=== PATIENT | female | born 1990 | race Caucasian/White ===

== ENCOUNTER 2019-10-31 07:55 | Outpatient (CLI) | payer OTHER, SELFPAY ==
[2019-10-31 09:32] LABS: Basophils Absolute Auto 0.1 K/mm3 (0.0-0.1); Basophils Percent Auto 0.3 % (0.2-1.2); Eosinophils Percent Auto 0.1 % (0-4.4); Hemoglobin 13.1 g/dL (12.0-15.0); Immature Granulocyte Absolute 0.18 K/mm3 (0.00-0.031); Immature Granulocyte Percent A 1.1 % (0-0.5); Lymphocytes Absolute Auto 2.55 K/mm3 (0.9-3.2); Lymphocytes Percent Auto 15.7 % (18.3-44.2); Mean Corpuscular HGB Conc 34.5 g/dl (32-36); Mean Corpuscular Hemoglobin 31.6 pg (26-34); Mean Corpuscular Volume 91.8 fl (80-100); Mean Platelet Volume 10.6 fl (7.4-10.4); Monocytes Absolute Auto 0.8 K/mm3 (0.1-0.6); Monocytes Percent Auto 5.1 % (2.6-8.5); Neutrophils Absolute Auto 12.6 K/mm3 (1.3-6.7); Neutrophils Percent Auto 77.7 % (45.5-73.1); Platelet Count Result 198 k/mm3 (150-375); Red Blood Count 4.14 M/mm3 (4.2-5.4); Red Cell Distribution Width 12.5 % (11.5-14.5); White Blood Count 16.3 K/mm3 (4.5-10.0)
[2019-10-31 09:49] LABS: Glucose 1 Hour PP 50gm Dose 106 mg/dL
== END 2019-10-31 07:56 | disposition home or self-care (01) ==
PROVIDERS: PCP Nurse Practitioner Family; Visit Provider Obstetrics & Gynecology
DX: Z34.01 Encounter for supervision of normal first pregnancy, first trimester (principal); Z3A.00 Weeks of gestation of pregnancy not specified
CPT/HCPCS: 36415; 82306; 82947; 85025; 85461

== ENCOUNTER 2019-11-04 08:11 | Outpatient (CLI) | payer OTHER, SELFPAY ==
[2019-11-04] MEDS: RHO(D) IMMUNE GLOBULIN 300 MCG SYRINGE IM (19:26)
== END 2019-11-04 08:12 | disposition home or self-care (01) ==
PROVIDERS: PCP Nurse Practitioner Family; Visit Provider Obstetrics & Gynecology
DX: Z34.01 Encounter for supervision of normal first pregnancy, first trimester (principal); Z3A.00 Weeks of gestation of pregnancy not specified
CPT/HCPCS: 36415; 85461; 90384; 96372; J2790

== ENCOUNTER → 2019-11-11 14:25 | Outpatient (CLI) | payer OTHER, SELFPAY ==
--- NOTE | ~2019-11-11 | US_ITS ---
EXAMINATION: US OB follow up DATE: 11/11/2019 14:48 INDICATION: Size greater than dates during third trimester TECHNIQUE: Real-time ultrasound of the pelvis was performed. The interpreting radiologist was not pre sent for the study. COMPARISON: None. FINDINGS: There is a single living fetus in breech presentation. The placenta is anterior/fundal. Fet al cardiac activity and movement are noted. heart rate is 137 beats per minute (bpm). The amniotic fluid index is 10.5 cm which is normal. The following biometric data were obtained: Biparietal diameter (BPD): 7.0 cm; head circumference (HC): 26.6 cm; abdominal circumference (AC): 25 .0 cm; femur length (FL): 5.0 cm. These measurements are concordant. Estimated weight is 1226 g +/- 183 g, which correlates with the 27th percentile when 01/29/2020 is used as estimated date of delivery. As single measurements, these parameters are each equal to the following estimated gestational ages w ith ranges of +/- 2 standard deviations: BPD: 28 weeks 1 days ( 26 weeks 0 days - 30 weeks 2 days). HC: 29 weeks 0 days ( 27 weeks 0 days - 31 weeks 1 days). AC: 29 weeks 2 days ( 27 weeks 1 days - 31 weeks 3 days). FL: 27 weeks 0 days ( 25 weeks 0 days - 29 weeks 1 days). estimated gestational age based solely on measurements from this exam is 28 weeks 3 days +/- 2 weeks 0 days. IMPRESSION: 1. Single living fetus in breech presentation. 2. Estimated weight is 1226 g +/- 183 g, which correlates with the 27th percentile when 01/29/20 20 is used as estimated date of delivery. 3. Normal amniotic fluid index. Reviewed, dictated and finalized at location A. IMPRESSION: 1. Single living fetus in breech presentation. 2. Estimated weight is 1226 g +/- 183 g, which correlates with the 27th p ercentile when 01/29/2020 is used as estimated date of delivery. 3. Normal amniotic fluid index.
== END ==
PROVIDERS: Visit Provider Obstetrics & Gynecology
DX: Z36.9 Encounter for antenatal screening, unspecified (principal); Z3A.28 28 weeks gestation of pregnancy
CPT/HCPCS: 76816

== ENCOUNTER 2020-01-03 07:34 | Outpatient (CLI) | payer OTHER, SELFPAY ==
[2020-01-03 08:49] LABS: Basophils Absolute Auto 0.1 K/mm3 (0.0-0.1); Basophils Percent Auto 0.4 % (0.2-1.2); Eosinophils Percent Auto 0.2 % (0-4.4); Hematocrit 39.2 % (37.0-47.0); Hemoglobin 13.5 g/dL (12.0-15.0); Immature Granulocyte Absolute 0.21 K/mm3 (0.00-0.031); Immature Granulocyte Percent A 1.3 % (0-0.5); Lymphocytes Absolute Auto 2.77 K/mm3 (0.9-3.2); Lymphocytes Percent Auto 16.6 % (18.3-44.2); Mean Corpuscular HGB Conc 34.4 g/dl (32-36); Mean Corpuscular Hemoglobin 31.8 pg (26-34); Mean Corpuscular Volume 92.2 fl (80-100); Mean Platelet Volume 11.7 fl (7.4-10.4); Monocytes Percent Auto 5.8 % (2.6-8.5); Neutrophils Absolute Auto 12.6 K/mm3 (1.3-6.7); Neutrophils Percent Auto 75.7 % (45.5-73.1); Platelet Count Result 157 k/mm3 (150-375); Red Blood Count 4.25 M/mm3 (4.2-5.4); Red Cell Distribution Width 12.5 % (11.5-14.5); White Blood Count 16.7 K/mm3 (4.5-10.0)
[2020-01-03 09:40] LABS: HIV 1/2 Ab P24 Ag Result Negative (Negative)
[2020-01-05 12:21] LABS: Rapid Plasma Reagin Non-Reactive (NonReactive)
== END 2020-01-03 07:35 | disposition home or self-care (01) ==
PROVIDERS: PCP Nurse Practitioner Family; Visit Provider Obstetrics & Gynecology
DX: Z34.03 Encounter for supervision of normal first pregnancy, third trimester (principal); Z3A.00 Weeks of gestation of pregnancy not specified
CPT/HCPCS: 36415; 85025; 86592; 86703; G0432

== ENCOUNTER 2020-01-27 06:14 | Inpatient (IN) | payer OTHER, SELFPAY ==
[2020-01-27] VITALS (66 sets, daily range): BP systolic 92–153; BP diastolic 46–119; PULSE 53–87; RESP 14–18; TEMP 36.2–36.8; O2SAT 97–100; BMI 27.0
--- NOTE | 2020-01-27 06:37 | LDADM ---
This patient, Ariella Anderson, was admitted to Labor/Delivery/Recovery 119 on 01/27/20 at 06:14. Plans for labor, pain management and were discussed with patient. Patient/family oriented to hospital policies and general routines including ID bracelet, bed and alarms, visiting hours, pain management, procedures, bathroom and other care routines, personal items, smoking policy, room service/diet and guest tray routines, security routines, and visiting hours. Patient/Family are encouraged to report perceived risks to care and to ask questions if they do not understand what they are told or what they should do. See OBIX for further documentation.
[2020-01-27] MEDS: LACTATED RINGERS 1,000 ML 125 ML IV CONT (06:39)
[2020-01-27 06:41] LABS: Basophils Absolute Auto 0.1 K/mm3 (0.0-0.1); Basophils Percent Auto 0.2 % (0.2-1.2); Hemoglobin 13.3 g/dL (12.0-15.0); Immature Granulocyte Absolute 0.22 K/mm3 (0.00-0.031); Lymphocytes Absolute Auto 2.52 K/mm3 (0.9-3.2); Lymphocytes Percent Auto 11.9 % (18.3-44.2); Mean Corpuscular Hemoglobin 32.4 pg (26-34); Mean Corpuscular Volume 92.5 fl (80-100); Mean Platelet Volume 12.1 fl (7.4-10.4); Monocytes Absolute Auto 1.2 K/mm3 (0.1-0.6); Monocytes Percent Auto 5.8 % (2.6-8.5); Neutrophils Absolute Auto 17.2 K/mm3 (1.3-6.7); Neutrophils Percent Auto 81.1 % (45.5-73.1); Platelet Count Result 157 k/mm3 (150-375); Red Blood Count 4.11 M/mm3 (4.2-5.4); Red Cell Distribution Width 12.4 % (11.5-14.5); White Blood Count 21.3 K/mm3 (4.5-10.0)
--- NOTE | 2020-01-27 07:12 | WPDANESEPPF ---
Anes - Initial Pre Proc Eval Procedure: Operation Date: 01/27/20 07:30 Proposed Procedures p Section - Grant Venegas MD Date/Time: 01/27/20 07:12 Surgeon: Grant Venegas MD Pre Op Diagnosis: Contractions Patient Data Age: 29 Gender: F Height: 1.68 m Weight: 76 kg Last Vital Signs Pulse 85 01/27/20 06:46 BP 124/72 01/27/20 06:46 Allergies Allergy/AdvReac Type Severity Reaction Status Date / Time No Known Allergies Allergy Verified 01/20/20 09:10 Home Medications Medication Instructions Recorded Confirmed Type vits 75-iron 28 mg-folic 1 pkg PO DAILY 06/17/19 01/27/20 History acid 800 mcg-omega-3 oral combo pack cholecalciferol (vitamin D3) 50 50 mcg PO DAILY 09/04/19 01/27/20 History mcg (2,000 unit) capsule Laboratory Tests 01/27/20 01/27/20 06:26 06:26 WBC 21.3 K/mm3 H K/mm3 (4.5-10.0) RBC 4.11 M/mm3 L M/mm3 (4.2-5.4) Hgb 13.3 g/dL g/dL (12.0-15.0) Hct 38.0 % % (37.0-47.0) MCV 92.5 fl fl (80-100) MCH 32.4 pg pg (26-34) MCHC 35.0 g/dl g/dl (32-36) RDW 12.4 % % (11.5-14.5) Plt Count 157 k/mm3 k/mm3 (150-375) MPV 12.1 fl H fl (7.4-10.4) Immature Gran % (Auto) 1.0 % H % (0-0.5) Neut % (Auto) 81.1 % H % (45.5-73.1) Lymph % (Auto) 11.9 % L % (18.3-44.2) [place] % (Auto) 5.8 % % (2.6-8.5) Eos % (Auto) 0.0 % % (0-4.4) Baso % (Auto) 0.2 % % (0.2-1.2) Lymph # (Auto) 2.52 K/mm3 K/mm3 (0.9-3.2) [place] # (Auto) 1.2 K/mm3 H K/mm3 (0.1-0.6) Eos # (Auto) 0.0 K/mm3 K/mm3 (0-0.3) Baso # (Auto) 0.1 K/mm3 K/mm3 (0.0-0.1) Abs Immat Gran (auto) 0.22 K/mm3 H K/mm3 (0.00-0.031) Absolute Neuts (auto) 17.2 K/mm3 H K/mm3 (1.3-6.7) Absolute Nucleated RBC 0.0 K/mm3 K/mm3 (0.0-0.012) Nucleated RBC % 0.0 % % (0.0-0.2) RPR Pending Patient hx anesthesia problems: none Family hx anesthesia problems: none [facility] Social History Social History Smoking status: Never smoker Alcohol intake: current Substance use: never Gender identity (if verbalized by the patient): Female Spiritual care concerns: No Anes - Eval Final PreProcedure Day of Procedure 01/27/20 07:12 Patient weight: overweight Heart: regular rate and rhythm Lungs: clear to auscultation and normal air movement Airway: Mallampati scale class II Neurological: alert and oriented Last oral intake: >/= 8 hours ASA classification: II Emergent: no Anesthetic plan: proceed Anesthesia type and monitoring: regional spinal Informed Consent: The patient's anesthetic plan and its attendant risks and benefits were discussed with the patient/family/POA. Questions were solicited and answers provided to the satisfaction of the patient/family/POA.
--- NOTE | 2020-01-27 07:15 | PM.IMHP ---
H&P: HPI History of Present Illness Date/Time: 01/27/20 07:15 Chief complaint: Contractions Narrative: Ariella Anderson is a 29 year old female G1 at 39 weeks admitted for labor. Contractions started at 0100. Cervix dilated from 1 to 3. PNC significant for persistent breech presentation. She has a thyroid cyst that has been drained prior to . No change in size during . Normal thyroid testing. OB labs reviewed. She has been counseled regarding options and opted for cesearean section at time of labor. PNC significant for positive GBS carrier. Rh neg. Rhogam received. Denies leakage of fluid. Review of Systems Review of Systems: All systems reviewed & are unremarkable except as noted in HPI and below Constitutional: Constitutional: Reports no additional constitutional complaints and Denies headache(s) Eyes: Eyes: Denies spots in vision ENT: Reports system reviewed and no additional complaints, except as documented and Denies headache(s) Cardiovascular: Cardiovascular: Denies chest pain and Denies dyspnea Respiratory: Respiratory: Denies dyspnea Gastrointestinal: Gastrointestinal: Reports no additional gastrointestinal complaints Genitourinary: Genitourinary: Reports amenorrhea Musculoskeletal: Musculoskeletal: Reports no additional musculoskeletal complaints Integumentary/Breasts: Skin/Breast: Denies breast mass and Denies rash Neurologic: Denies headache(s) Psychiatric: Psychiatric: Reports no additional psychiatric complaints PMFSH Past Medical History Medical History Encounter for supervision of normal first , first trimester Surgical History Surgical History S/P thyroid biopsy [place] teeth removed Family History Family History Father Family history of hypercholesterolemia Grandparent Family history of malignant neoplasm of breast Mother Family history of malignant neoplasm of breast in first degree relative Social History Social History Smoking status: Never smoker Alcohol intake: current Substance use: never Gender identity (if verbalized by the patient): Female Spiritual care concerns: No Meds Home Medications and Allergies Home Medications Medication Instructions Recorded Confirmed Type vits 75-iron 28 mg-folic 1 pkg PO DAILY 06/17/19 01/27/20 History acid 800 mcg-omega-3 oral combo pack cholecalciferol (vitamin D3) 50 50 mcg PO DAILY 09/04/19 01/27/20 History mcg (2,000 unit) capsule Allergies Allergy/AdvReac Type Severity Reaction Status Date / Time No Known Allergies Allergy Verified 01/20/20 09:10 Vital Signs Vital Signs - 24 hr 01/27/20 06:01 01/27/20 06:16 01/27/20 06:31 Pulse Rate 70 79 87 Blood Pressure 124/67 126/78 135/86 01/27/20 06:46 Pulse Rate 85 Blood Pressure 124/72 Exam Const: General: no acute distress Eyes: General: appearance normal, both eyes and all related structures Resp: Effort & Inspection: normal respiratory effort Cardio: Rate: regular rate GI: Other: Gravid no fundal tenderness no right upper quadrant pain : External Female Exam: normal external appearance Manual OB Exam: dilated 3 cm, effaced 75% and station -1 Other: bedside ultrasound confirmed breech Skin: General skin exam: no rashes or lesions noted Neuro: Cognition (Neuro): normal cognition Extrem: General: normal to inspection Psych: Mental Status: mental status grossly normal H&P: Results Labs Labs: Short CBC 01/27/20 Range/Units 06:26 WBC 21.3 H (4.5-10.0) K/mm3 Hgb 13.3 (12.0-15.0) g/dL Hct 38.0 (37.0-47.0) % Plt Count 157 (150-375) k/mm3 Assessment and Plan Assessment and plan (1) Breech presentation: Code(s): O32.1XX0 -
[2020-01-27] MEDS: ceFAZolin 2 GM/D5W 50 ML 2 GM/50 ML BAG IVPB (07:29)
--- NOTE | 2020-01-27 08:49 | PM.PROC ---
Procedure Note - Detailed Date of procedure: 01/28/20 Pre-op diagnosis: Contractions 1. Persistent breech presentation 2. Active labor. Post-op diagnosis: same Procedure performed: 1. Primary cesearean section Description of procedure: After informed consent was obtained patient was taken to the operating room and adequate spinal anesthesia was administered. She was placed in supine position and prepped and draped in sterile fashion. heart tones were auscultated prior to a drape. Attention was turned to the abdomen and a Pfannenstiel skin incision was made along her prior Pfannenstiel scar. The subcutaneous tissue was dissected with scalpel and cautery. The fascia was incised in the midline stented bilaterally with Padilla scissors. The fascia was from rectus muscle superiorly and inferiorly bluntly and sharply. Scar tissue of the abdominal muscles to the fascia was lysed with Padilla scissors. The midline was identified the midline was entered and the peritoneum was entered with metzenbaum scissors. The uterus had some filmy adhesions to the anterior abdominal wall, it was noted to be free of any scar tissue from the intestines. The pelvic organs were visualized. The lower uterine segment and vesico-uterine peritoneum was visualized. A bladder flap was made. A low-transverse uterine incision was made, amniotic cavity was entered, clear fluid noted. The incision was extended bluntly. The buttocks was visualized. The butt was delivered. The legs were flexed in and delivered. The arms and head were delivered. There was a loose nuchal cord manually reduced. The was vigorously crying upon delivery. The cord was doubly clamped and cut and the infant was handed to nursery staff in attendance. Cord segment was obtained for cord gases. Cord blood was obtained. The placenta was removed manually. The uterine cavity was sponge curetted. The uterus was noted to have good tone. The uterus was exteriorized the incision of the uterus was closed in a running locking fashion with 0 Vicryl and a 2nd umbricating stitch of 0 Vicryl. Hemostasis was noted. The posterior cul-de-sac was irrigated. Uterus was placed back into the abdomen. The paracolic gutters were irrigated the uterine incision was inspected again and noted to be hemostatic. Interceed adhesion barrier was placed at the lower uterine segment and anterior uterus. The omentum was placed over the site. The peritoneum and muscle bellies were approximated in the midline with several sutures of [id number] of 3 O Vicryl. The fascia was closed in a running fashion with 0 Vicryl with 2 sutures. Hemostasis was noted. The skin incision was closed with 4 O Vicryl on a Gopi needle. Dermabond was placed. Hemostasis was noted. Sponge count was correct x3. The patient tolerated procedure well and was taken to recovery in stable condition. Anesthesia: spinal Surgeon: Grant Venegas MD Estimated blood loss (mL): 645 Drains: No Packing: No Pathology: none sent Complications: No immediate complications Condition: stable Disposition: floor (Recovery) Findings: Male in robina breech position. 6ls 1 oz. Normal uterus fallopian tubes and ovaries.
[2020-01-27] MEDS: OXYTOCIN 30 UNITS/NS 500 ML 30 UNITS/500 ML BAG 125 UNITS IV CONT (09:28)
[2020-01-27] MEDS: KETOROLAC 30 MG/ML VIAL (*BKC) IV PUSH ×2 (10:47→17:56)
--- NOTE | 2020-01-27 15:20 | PC.NURSE ---
Consulted with patient, mother reports she used a nipple shield for last feeding. Reviewed feeding cues, frequencies, duration of feedings, feeding elimination flow sheet, and signs of adequate intake. Demonstrated stimulation techniques to wake infant for feeding. Assisted with to breast. Demonstrated how to roll out nipple to assist with latching. Reviewed positioning/alignment in cross cradle, holding breast in U hold and guided asymmetrical latch on. Discussed rational for each. Infant was able to latch correctly with first attempt. Infant nursed eagerly, with steady draws and frequent swallowing noted. Reviewed signs of a correct latch, effective nursing and suck swallow ratio. was able to maintain latch without discomfort to mother. Nipple care reviewed. Suggested to stimulate while feeding to keep awake and nursing effectively for increased intake and to assist with maintaining deep latch. Demonstrated how to adjust latch more deeply while feeding. Instructed mother to call out for RN assistance if she is unable to latch infant for feeding or she has discomfort with nursing. Instructed feeding should be initiated three hours from start of last feeding or if feeding cues are noted before. Mother voiced understanding of information shared.
[2020-01-27] MEDS: DOCUSATE SODIUM 100 MG CAPSULE PO (17:55)
[2020-01-28 04:10] VITALS: BP 105/67; PULSE 64; RESP 16; TEMP 36.8; O2SAT 100
[2020-01-28 05:37] LABS: Basophils Absolute Auto 0.1 K/mm3 (0.0-0.1); Basophils Percent Auto 0.3 % (0.2-1.2); Eosinophils Percent Auto 0.2 % (0-4.4); Hematocrit 32.1 % (37.0-47.0); Immature Granulocyte Absolute 0.16 K/mm3 (0.00-0.031); Immature Granulocyte Percent A 0.8 % (0-0.5); Lymphocytes Absolute Auto 3.03 K/mm3 (0.9-3.2); Lymphocytes Percent Auto 15.2 % (18.3-44.2); Mean Corpuscular HGB Conc 34.3 g/dl (32-36); Mean Corpuscular Hemoglobin 32.6 pg (26-34); Mean Corpuscular Volume 95.3 fl (80-100); Mean Platelet Volume 12.4 fl (7.4-10.4); Monocytes Absolute Auto 1.2 K/mm3 (0.1-0.6); Neutrophils Absolute Auto 15.4 K/mm3 (1.3-6.7); Neutrophils Percent Auto 77.5 % (45.5-73.1); Platelet Count Result 121 k/mm3 (150-375); Red Blood Count 3.37 M/mm3 (4.2-5.4); Red Cell Distribution Width 12.7 % (11.5-14.5); White Blood Count 19.9 K/mm3 (4.5-10.0)
--- NOTE | 2020-01-28 08:10 | WPDANLDNPN2 ---
Anes-Prog Note L&D-Neuraxial Date/Time: 01/28/20 08:10 Neuraxial medications: intrathecal PF morphine Opiod-related complaints: none Patient feedback: Patient satisfied with post-operative pain management.
--- NOTE | 2020-01-28 08:10 | WPDANLDPN2 ---
Anes-Prog Note L&D Date/Time: 01/28/20 08:10 Neuraxial method: spinal Neuro status: Neuro function grossly intact. Cardiovascular status: normal Respiratory status: normal Airway patency: baseline Mental status: baseline Post-Op hydration status: normal Vital Signs: Last Vital Signs Temp 36.8 C 01/28/20 04:10 Pulse 64 01/28/20 04:10 Resp 16 01/28/20 04:10 BP 105/67 01/28/20 04:10 Pulse Ox 100 01/28/20 04:10 I/O: Intake & Output 01/27/20 01/28/20 01/28/20 23:59 07:59 15:59 Intake Total 1100 200 Output Total 1150 1800 Balance -50 -1600 Post-procedural complaints: none Patient feedback: Patient satisfied with anesthetic care.
[2020-01-28 08:30] VITALS: BP 98/64; PULSE 62; RESP 16; TEMP 37.6; O2SAT 99
--- NOTE | 2020-01-28 09:04 | PM.OBPNVD ---
OB - PN: Subj Subjective Date/time seen: 01/28/20 09:04 Interval history: Pain well controlled Tolerating PO. Denies N/V/CP/SOB. Lochia is like menses. Patient comments: no complaints, pain well controlled, tolerating diet and flatus present [place] baby status: doing well and nursing well feeding status: exclusively breast feeding OB - PN: Obj Data Labs CBC & Chem 7: 01/28/20 05:30 Labs: Laboratory Results - last 24 hr 01/27/20 01/28/20 06:26 05:30 WBC 19.9 H RBC 3.37 L Hgb 11.0 L Hct 32.1 L MCV 95.3 MCH 32.6 MCHC 34.3 RDW 12.7 Plt Count 121 L MPV 12.4 H Immature Gran % (Auto) 0.8 H Neut % (Auto) 77.5 H Lymph % (Auto) 15.2 L [place] % (Auto) 6.0 Eos % (Auto) 0.2 Baso % (Auto) 0.3 Lymph # (Auto) 3.03 [place] # (Auto) 1.2 H Eos # (Auto) 0.0 Baso # (Auto) 0.1 Abs Immat Gran (auto) 0.16 H Absolute Neuts (auto) 15.4 H Absolute Nucleated RBC 0.0 Nucleated RBC % 0.0 Antibody Identification Inconclusive Antigen Identification Cancelled VISHNU, IgG Interpret Not Performed VISHNU, Poly Interpret Negative VISHNU, Complement Interp Not Performed OB - PN A/P Plan day: 1 Plan: routine care Comments: Encourage ambulation Advance diet as tolerated BF instructed. Time Spent With Patient Time: Total time spent is greater than 50% in coordination of care (as documented) at patient's floor/unit and/or counseling patient: Time with patient: less than 15 minutes Review of Systems Constitutional: Constitutional: Reports no additional constitutional complaints and Denies headache(s) Cardiovascular: Cardiovascular: Reports no additional cardiovascular complaints Respiratory: Respiratory: Reports no additional respiratory complaints Gastrointestinal: Gastrointestinal: Reports no additional gastrointestinal complaints Exam Const: General: comfortable, no acute distress, alert and awake Resp: Effort & Inspection: normal respiratory effort Auscultation: clear to auscultation bilaterally Cardio: Rate: regular rate GI: Auscultation: normal bowel sounds Other: Incision: C/D/I Fundus firm below umbilicus Psych: Appearance: grossly normal Mental Status: mental status grossly normal Affect: normal affect Attitude: cooperative Judgement: Good judgement present (Psych)
[2020-01-28 10:03] LABS: Rapid Plasma Reagin Non-Reactive (NonReactive)
--- NOTE | 2020-01-28 10:50 | PC.NURSE ---
Mother called out for assist with feeding, reporting was eager to feed during the night. Mother has tenderness to nipples with feeding with feedings. Reviewed positioning/alignment in cross cradle, holding breast in U hold and guided asymmetrical latch on. was able to latch correctly. Infant nursed eagerly, with steady draws and frequent swallowing noted. Within a few minutes mother reports tenderness, has pulled bottom lip in. Demonstrated how to pull lip out while feeding. Once lip is out mother reports she can feel is latched deeply with no discomfort. Reviewed signs of a correct latch, effective nursing and suck swallow ratio. was able to maintain latch without discomfort to mother. Nipple care reviewed. Demonstrated how to adjust latch more deeply while feeding. Instructed mother to call out for RN assistance if she is unable to latch infant for feeding or she has discomfort with nursing. Instructed feeding should be initiated three hours from start of last feeding or if feeding cues are noted before. Mother voiced understanding of information shared.
[2020-01-28] MEDS: IBUPROFEN SUSPENSION 200 MG/10 ML UDC 600 MG PO ×2 (10:58→18:43)
[2020-01-28] MEDS: DOCUSATE SODIUM 100 MG CAPSULE PO ×2 (11:04→18:43)
--- NOTE | 2020-01-28 13:35 | PC.NURSE ---
Mother called out for assist with feeding, reporting tenderness to nipples with feeding. lip is rolled in. is latched deeply in cross cradle, holding breast in U hold. Infant nursed eagerly, with steady draws and frequent swallowing noted. Demonstrated how to pull lip out while feeding. Once lip is out mother reports she can feel infant is latched deeply with no discomfort. Reviewed signs of a correct latch, effective nursing and suck swallow ratio. Infant was able to maintain latch without discomfort to mother. Nipple care reviewed. Demonstrated how to adjust latch more deeply while feeding. Instructed mother to call out for RN assistance if she is unable to latch for feeding or she has discomfort with nursing. Instructed feeding should be initiated three hours from start of last feeding or if feeding cues are noted before. Mother voiced understanding of information shared.
[2020-01-28 19:03] VITALS: BP 106/57; PULSE 76; RESP 16; TEMP 36.4; O2SAT 99
[2020-01-29 08:00] VITALS: BP 144/70; PULSE 83; RESP 18; TEMP 37.3
[2020-01-29] MEDS: SIMETHICONE 80 MG TAB.CHEW PO ×2 (08:53→16:46)
[2020-01-29] MEDS: IBUPROFEN SUSPENSION 200 MG/10 ML UDC 600 MG PO ×3 (08:54→21:22)
[2020-01-29] MEDS: DOCUSATE SODIUM 100 MG CAPSULE PO ×2 (08:54→16:48)
--- NOTE | 2020-01-29 09:35 | PC.NURSE ---
Mother called out for assist with waking for feeding. Demonstrated stimulation techniques to wake for feeding. Infant easily awoken and showing feeding cues. Mother is able to independently latch infant with appropriate positioning/alignment for cross cradle holding breast in U hold. Infant eagerly latched nursing eagerly with long draws and freq swallowing noted.
[2020-01-29 19:26] VITALS: BP 107/70; PULSE 74; RESP 16; TEMP 36.7; O2SAT 99
--- NOTE | 2020-01-29 23:05 | PM.OBPNVD ---
OB - PN: Subj Subjective Date/time seen: 01/29/20 23:05 Interval history: Pain well controlled Tolerating solids. Positive flatus. Ambulating. . No leg pain. OB - PN: Obj Data Labs CBC & Chem 7: 01/28/20 05:30 OB - PN A/P Assessment and Plan (1) Encounter for postoperative care: Code(s): Z48.89 - Encounter for other specified surgical aftercare Status: Acute Assessment and Plan: POD2 s/p Primary C/S for breech. She is doing well. Desires to go home tomorrow. Continue routine care. Time Spent With Patient Time: Total time spent is greater than 50% in coordination of care (as documented) at patient's floor/unit and/or counseling patient: Exam Const: General: comfortable and no acute distress Resp: Effort & Inspection: normal respiratory effort GI: Other: incision intact, fundus -3 umbilicus,nontender, incision no drainage or erythema Extrem: Other: nontender no edema Psych: Mental Status: mental status grossly normal Affect: normal affect
[2020-01-30] MEDS: IBUPROFEN SUSPENSION 200 MG/10 ML UDC 600 MG PO (06:02)
--- NOTE | 2020-01-30 08:33 | P.PNOB_ITS ---
OB - PN: Subj Subjective Date/time seen: 01/30/20 08:33 Interval history: Pain well controlled Tolerating solids. Positive flatus. Ambulating. . No leg pain. Lochia less than cycle. Patient comments: no complaints, pain well controlled, tolerating diet and flatus present; no incisional pain [place] baby status: doing well and nursing well [place] feeding status: exclusively breast feeding OB - PN: Obj Data Labs CBC & Chem 7: 01/28/20 05:30 OB - PN A/P Plan day: 3 Plan: discharge home, follow up 6 weeks and other (f/u in 1 week for incision checkup) Comments: BF instructed Time Spent With Patient Time: Total time spent is greater than 50% in coordination of care (as documented) at patient's floor/unit and/or counseling patient: Time with patient: 15 - 25 minutes Review of Systems Constitutional: Constitutional: Reports as per HPI and Reports no additional constitutional complaints Cardiovascular: Cardiovascular: Reports as per HPI and Reports no additional cardiovascular complaints Respiratory: Respiratory: Reports as per HPI and Reports no additional respiratory complaints Gastrointestinal: Gastrointestinal: Reports as per HPI, Reports no additional gastrointestinal complaints, Denies abdominal pain, Denies nausea and Denies vomiting Genitourinary: Genitourinary: Reports no additional female genitourinary complaints and Denies dysuria Exam Const: General: comfortable, no acute distress, alert and awake Resp: Effort & Inspection: normal respiratory effort Auscultation: clear to auscultation bilaterally Cardio: Rate: regular rate GI: Auscultation: normal bowel sounds Other: Incision: C/D/I Fundus firm below umbilicus
--- NOTE | 2020-01-30 08:35 | PM.OBDSVD ---
DS: Admitting Diagnosis Admitting Diagnosis Admitting Diagnosis: Contractions OB - DS: Summary OB Procedures : None OB Procedures Intrapartum: OB Procedures: : None Peripartum Data Infant Delivery Method: Section Procedures: Procedures Operation Date: 01/27/20 07:30 Actual Procedures Side Surgeon p Section Grant Venegas MD complications: none Time Spent with Patient Time attestation: Total time spent providing and/or coordinating discharge services: Exam Const: General: comfortable, no acute distress, alert and awake Limitations: no limitations Resp: Effort & Inspection: normal respiratory effort Auscultation: clear to auscultation bilaterally Cardio: Rate: regular rate GI: Inspection: non-distended GI Palp: Yes Soft to palpation and No Tenderness to palpation present (GI) Auscultation: normal bowel sounds Other: Incision: C/D/I Fundus firm below umbilicus Psych: Appearance: grossly normal Affect: normal affect Attitude: cooperative Thought content: Yes Normal thought content present Judgement: Good judgement present (Psych) Discharge Plan Discharge Discharging Clinician: Fara Conley Patient Disposition: Home, Self-Care Activity: no driving, as tolerated and pelvic rest Diet: regular Patient Instructions: Antibiotic Form Stand Alone Forms: General Discharge Information Follow-up/Referrals: Grant Venegas MD [Physician] - Discharge Medications: New docusate sodium 100 mg Capsule 100 mg PO BID Qty: 60 RF: 0 ibuprofen 100 mg/5 mL Suspension 600 mg PO Q6H PRN (Reason: Cramping) Qty: 60 RF: 0 hydrocodone-acetaminophen 7.5-325 mg/15 mL Solution 5 mg PO Q3H PRN (Reason: Moderate Pain (4-6)) 15 Days RF: 0 hydrocodone-acetaminophen 7.5-325 mg/15 mL Solution 10 mg PO Q3H PRN (Reason: Pain Rated 7-10) Qty: 30 RF: 0 Continued One A Day Women's DHA 28 mg iron- 800 mcg combo pack 1 pkg PO DAILY RF: 0 cholecalciferol (vitamin D3) 50 mcg (2,000 unit) capsule 50 mcg PO DAILY RF: 0 Date of admission: 01/27/20 06:14 Primary Care Provider: LeenaMarizol Admitting Provider: Grant Venegas Attending physician on admission: Grant Venegas
[2020-01-30 08:55] VITALS: BP 107/68; PULSE 86; RESP 18; TEMP 36.8; O2SAT 100
--- NOTE | 2020-01-30 09:30 | PC.NURSE ---
Observed mother is able to independently latch with appropriate positioning/alignment. She denies any nipple discomfort, is feeding as required and waking infant to feed if needed. has had at least 8 effective feedings in the past 24 hours, and is currently meeting outcomes for weight, jaundice and feeding frequencies. Infant is at 9% weight loss, has not had required output and is just under threshold for jaundice. Supplementation was suggested by ICP, parents are willing to begin supplement of 20-30 mls after each feeding. Reviewed pace feeding of either EBM/formula. Advised infant is effectively feeding with plans to discontinue supplement once her milk is in and weight and jaundice have resolved. Mother states she feels confident to above feeding plan at home. Reviewed transition to breast milk, signs of adequate intake, and engorgement/relief. Instructed to call ICP if intake/output less than required. Reviewed regular medications mother is taking. Information provided per Paulina. Reviewed community resources on the [facility] website and in the Mom/Baby guide. Information on outpatient services provided. Mother has no further questions at this time.
[2020-01-30] MEDS: DOCUSATE SODIUM 100 MG CAPSULE PO (10:14)
--- NOTE | 2020-01-30 12:30 | PC.NURSE ---
Patient viewed the discharge video Mother & Baby Care, The First Two Weeks . Patient was given the opportunity and encouraged to ask questions. Patient verbalized understanding of information shared and has been given the mother/baby guide for home reference.
[2020-02-02 09:36] VITALS: BP 112/75; PULSE 78; RESP 20; TEMP 36.6; O2SAT 99
== END 2020-01-30 13:35 | disposition home or self-care (01) | DRG 787 ==
LOC: ANHLDR 06:15 → ANHOB2 11:41
PROVIDERS: Admitting Provider Obstetrics & Gynecology; PCP Nurse Practitioner Family; Visit Provider Obstetrics & Gynecology
PROC: (CPT 59514; principal; 2020-01-27 07:30)
DX: O32.1XX0 Maternal care for breech presentation, not applicable or unspecified (principal); O36.0930 Maternal care for other rhesus isoimmunization, third trimester, not applicable or unspecified; Z37.0 Single live birth; Z3A.39 39 weeks gestation of pregnancy; O99.824 Streptococcus B carrier state complicating childbirth; O99.284 Endocrine, nutritional and metabolic diseases complicating childbirth; E04.1 Nontoxic single thyroid nodule; O69.81X0 Labor and delivery complicated by cord around neck, without compression, not applicable or unspecified
CPT/HCPCS: 36415; 85025; 86592; 86850; 86880; 86900; 86901; 86902; A9270; J0131; J0690; J1100; J1885; J2274; J2370; J2405; J2590; J7120

== ENCOUNTER 2020-10-06 10:55 | Outpatient (CLI) | payer OTHER, SELFPAY ==
--- NOTE | ~2020-10-06 | US_ITS ---
US breast RT limited 10/06/2020 11:15 Indication: Probable right breast abnormality Procedure: High-resolution Limited ultrasound of the right breast Comparison: No prior studies for comparison. Findings: At 7:00, 6 cm from the nipple, there is a complicated cyst with internal septations measuri ng 10 x 6 x 8 mm. There is posterior acoustic enhancement and no internal vascularity. At 7:00, 7 cm from the nipple, there is a 12 mm simple cyst. Impression: 1: Probable benign complicated cyst of the right breast at 7:00, 6 cm from the nipple. BI-RADS CATEGORY 3-PROBABLY BENIGN FINDING RECOMMENDATION: Six-month follow-up right breast ultrasound recommended. Reviewed, dictated and finalized at location A. Impression: 1: Probable benign complicated cyst of the right breast at 7:00, 6 cm from the nipple. BI-RADS CATEGORY 3-PROBABLY BENIGN FINDING RECOMMENDATION: Six-month follow-up right breast ultrasound recommended.
== END 2020-10-06 10:56 | disposition home or self-care (01) ==
PROVIDERS: PCP Nurse Practitioner Family; Visit Provider Obstetrics & Gynecology
DX: N60.09 Solitary cyst of unspecified breast (principal); R92.8 Other abnormal and inconclusive findings on diagnostic imaging of breast
CPT/HCPCS: 76642

== ENCOUNTER 2021-04-01 08:04 | Outpatient (CLI) | payer OTHER, SELFPAY ==
[2021-04-01 09:04] LABS: T4 Thyroxine 7.98 ug/dL (5.53-11.0)
== END 2021-04-01 08:05 | disposition home or self-care (01) ==
LOC: ANHLAB 08:09
PROVIDERS: PCP Internal Medicine; Referring Provider Otolaryngology; Visit Provider Obstetrics & Gynecology
DX: E04.9 Nontoxic goiter, unspecified (principal)
CPT/HCPCS: 36415; 84436; 84443

== ENCOUNTER → 2021-04-01 09:07 | Outpatient (CLI) | payer OTHER, SELFPAY ==
--- NOTE | ~2021-04-01 | US_ITS ---
EXAMINATION: US OB <=14 wk fetus w TV DATE: 04/01/2021 09:42 INDICATION: First trimester dating and viability assessment. TECHNIQUE: Real-time pelvic transabdominal and transvaginal ultrasound was performed. COMPARISON: None. FINDINGS: The uterus measures 9.4 x 4.4 x 5.5 cm. There is an intrauterine gestational sac. A 1.5 x 1.1 cm hypoechoic area is present adjacent to the gestational sac. A yolk sac is identified. No visib le pole is identified. The mean sac diameter measures 1.1 cm , which correlates with an estimat ed gestational age of 5 weeks and 1 day(s) (+/-) 3 day(s). The right ovary is not visualized however no right adnexal abnormality is seen. The left ovary measur es 3.4 x 2.1 x 2.8 cm. There is normal vascular flow in the left ovary. There is no free fluid in the pelvis. IMPRESSION: 1. Intrauterine gestational sac with an estimated gestational age of 5 weeks and 1 day(s) (+/-) 3 day (s) and an estimated delivery date of 12/01/2021 based on mean sac diameter. pole not visualized , possibly due to early . 2. Small subchronic hemorrhage. Reviewed, dictated and finalized at location D. F EDUCATOR IMPRESSION: 1. Intrauterine gestational sac with an estimated gestational age of 5 weeks an d 1 day(s) (+/-) 3 day(s) and an estimated delivery date of 12/01/2021 based on mean sac diameter. pole not visualized, possibly due to early . 2. Small subchronic hemorrhage.
== END ==
PROVIDERS: Visit Provider Obstetrics & Gynecology
DX: O46.91 Antepartum hemorrhage, unspecified, first trimester (principal); Z3A.01 Less than 8 weeks gestation of pregnancy
CPT/HCPCS: 76801; 76817

== ENCOUNTER 2021-04-02 07:09 | Outpatient (CLI) | payer OTHER, SELFPAY ==
[2021-04-08 11:45] LABS: Progesterone 25.3 ng/mL (***)
== END 2021-04-02 07:10 | disposition home or self-care (01) ==
PROVIDERS: PCP Internal Medicine; Visit Provider Obstetrics & Gynecology
DX: O36.80X0 Pregnancy with inconclusive fetal viability, not applicable or unspecified (principal); Z3A.00 Weeks of gestation of pregnancy not specified
CPT/HCPCS: 36415; 84144; 84702

== ENCOUNTER 2021-04-04 07:05 | Outpatient (CLI) | payer OTHER, SELFPAY | END 2021-04-04 07:06 | disposition home or self-care (01) | PROVIDERS: PCP Internal Medicine; Visit Provider Obstetrics & Gynecology | DX: O36.80X0 Pregnancy with inconclusive fetal viability, not applicable or unspecified (principal); Z3A.00 Weeks of gestation of pregnancy not specified | CPT/HCPCS: 36415; 84702 ==

== ENCOUNTER → 2021-04-08 13:23 | Outpatient (CLI) | payer OTHER, SELFPAY ==
--- NOTE | ~2021-04-08 | US_ITS ---
EXAMINATION: US OB <=14 wk fetus w TV DATE: 04/08/2021 14:14 INDICATION: Subchorionic hematoma. Encounter for test during first trimester. TECHNIQUE: Real-time pelvic ultrasound utilizing both a transvaginal and transabdominal probe was pe rformed. The interpreting radiologist was not present for the study. COMPARISON: None. FINDINGS: The uterus measures 10.8 x 4.8 x 5.4 cm. There is an intrauterine gestational sac. A yolk sac and fe jessica pole are identified. The crown rump length measures 5 mm, which correlates with an estimated gest ational age of 6 weeks and 1 days. heart motion is identified measuring 123 beats per minute (b pm) by M-mode Doppler. There are couple small hypoechoic subchorionic hematomas measuring 2.1 x 2.6 x 1.1 cm on the left side of the gestational sac and 2.2 x 1.4 x 0.9 cm along the posterior margin. Th ere is focal myometrial thinning and shadowing along the anterior lower uterine segment likely repres enting a prior section scar. The right ovary measures 2.3 x 1.6 x 1.2 cm. The left ovary measures 3.5 x 3.0 x 1.9 cm. There is no free fluid in the pelvis. IMPRESSION: 1. Single living fetus with heart rate of 123 bpm. 2. Gestational age by ultrasound of 6 weeks 1 day(s) +/- 4 day(s) with ultrasound estimated date of delivery (BALDOMERO) of 12/01/2021. 3. A couple small subchorionic hematomas. Reviewed, dictated and finalized at location A. SPORTATION ENGINEER IMPRESSION: 1. Single living fetus with heart rate of 123 bpm. 2. Gestational age by ultrasound of 6 weeks 1 day(s) +/- 4 day(s) with ultraso und estimated date of delivery (BALDOMERO) of 12/01/2021. 3. A couple small subchorionic hematomas.
== END ==
PROVIDERS: PCP Internal Medicine; Visit Provider Obstetrics & Gynecology
DX: O46.91 Antepartum hemorrhage, unspecified, first trimester (principal); Z3A.01 Less than 8 weeks gestation of pregnancy
CPT/HCPCS: 76801; 76817

== ENCOUNTER → 2021-04-13 08:23 | Outpatient (CLI) | payer OTHER, SELFPAY ==
--- NOTE | ~2021-04-13 | US_ITS ---
EXAMINATION: US breast RT limited HISTORY: Six-month follow-up for probably benign right breast mass TECHNIQUE: High-resolution limited right breast ultrasound is performed. COMPARISON: 10/06/2020 FINDINGS: The previously described complex mass at the 7:00 location 6 cm from the nipple is no longe r identified, most consistent with a resolved cyst. There is an 11 mm cyst at 8:00 location 5 cm from the nipple. No suspicious cystic or solid mass is identified. IMPRESSION: Resolution of the previously described indeterminate mass, likely resolved cyst. No sonographic evide nce of malignancy. BI-RADS Category 2: Benign finding(s). Reviewed, dictated and finalized at location A. PAGE DEVELOPER IMPRESSION: Resolution of the previously described indeterminate mass, likely resolved cyst . No sonographic evidence of malignancy. BI-RADS Category 2: Benign finding(s).
== END ==
PROVIDERS: Visit Provider Obstetrics & Gynecology
DX: N60.01 Solitary cyst of right breast (principal)
CPT/HCPCS: 76642

== ENCOUNTER 2021-08-18 12:47 | Outpatient (RCR) | payer OTHER, SELFPAY ==
[2021-08-16 14:40] LABS: Basophils Absolute Auto 0.1 K/mm3 (0.0-0.1); Basophils Percent Auto 0.4 % (0.2-1.2); Eosinophils Absolute Auto 0.1 K/mm3 (0-0.3); Eosinophils Percent Auto 0.6 % (0-4.4); Hematocrit 37.2 % (37.0-47.0); Hemoglobin 12.5 g/dL (12.0-15.0); Immature Granulocyte Absolute 0.28 K/mm3 (0.00-0.031); Immature Granulocyte Percent A 1.6 % (0-0.5); Lymphocytes Percent Auto 17.1 % (18.3-44.2); Mean Corpuscular HGB Conc 33.6 g/dl (32-36); Mean Corpuscular Hemoglobin 30.6 pg (26-34); Mean Corpuscular Volume 91.2 fl (80-100); Mean Platelet Volume 10.9 fl (7.4-10.4); Monocytes Percent Auto 5.9 % (2.6-8.5); Neutrophils Absolute Auto 12.6 K/mm3 (1.3-6.7); Neutrophils Percent Auto 74.4 % (45.5-73.1); Platelet Count Result 200 k/mm3 (150-375); Red Blood Count 4.08 M/mm3 (4.2-5.4); Red Cell Distribution Width 13.1 % (11.5-14.5)
[2021-08-16 14:52] LABS: Glucose 1 Hour PP 50gm Dose 108 mg/dL
[2021-08-18] MEDS: RHO(D) IMMUNE GLOBULIN 300 MCG/2 ML SYRINGE IM (08:14)
== END 2021-11-14 23:59 | disposition home or self-care (01) ==
LOC: ANHLAB 12:47
PROVIDERS: Visit Provider Obstetrics & Gynecology
DX: Z29.13 Encounter for prophylactic Rho(D) immune globulin (principal); O36.0190 Maternal care for anti-D [Rh] antibodies, unspecified trimester, not applicable or unspecified; Z3A.00 Weeks of gestation of pregnancy not specified
CPT/HCPCS: 36415; 82947; 85025; 85461; 90384; 96372; J2790

== ENCOUNTER 2021-09-27 15:25 | Outpatient (RCR) | payer OTHER, SELFPAY ==
[2021-09-27 17:08] LABS: Alanine Aminotransferase 19 U/L (6-35); Aspartate Amino Transferase 28 U/L (14-36)
[2021-09-27 18:08] VITALS: BP 107/65; PULSE 77
[2021-09-27 18:14] LABS: Fetal Fibronectin Negative
--- NOTE | 2021-09-27 18:28 | PC.NURSE ---
1814--Reported negative FFN to Dr Venegas. DC orders given. Reminded pt to call office or unit if tightening increases or becomes painful. Reinforced increased periods of rest and increased fluids.
[2021-10-05 11:07] LABS: Chenodeoxycholic Acid 2.2 umol/L (< OR = 3.9); Deoxycholic Acid 1.8 umol/L (< OR = 2.3)
== END 2021-11-26 09:22 | disposition home or self-care (01) ==
LOC: ANHOBOP 15:25
PROVIDERS: PCP Internal Medicine; Visit Provider Obstetrics & Gynecology
DX: O99.891 Other specified diseases and conditions complicating pregnancy (principal); Z3A.32 32 weeks gestation of pregnancy
CPT/HCPCS: 36415; 59025; 82542; 82731; 84450; 84460

== ENCOUNTER 2021-10-04 13:32 | Outpatient (CLI) | payer OTHER, SELFPAY ==
[2021-10-04 13:53] LABS: Basophils Absolute Auto 0.1 K/mm3 (0.0-0.1); Basophils Percent Auto 0.4 % (0.2-1.2); Eosinophils Absolute Auto 0.1 K/mm3 (0-0.3); Eosinophils Percent Auto 0.6 % (0-4.4); Hematocrit 35.9 % (37.0-47.0); Immature Granulocyte Absolute 0.29 K/mm3 (0.00-0.031); Immature Granulocyte Percent A 1.8 % (0-0.5); Lymphocytes Absolute Auto 2.36 K/mm3 (0.9-3.2); Lymphocytes Percent Auto 14.4 % (18.3-44.2); Mean Corpuscular HGB Conc 33.4 g/dl (32-36); Mean Corpuscular Hemoglobin 30.8 pg (26-34); Mean Corpuscular Volume 92.1 fl (80-100); Mean Platelet Volume 11.1 fl (7.4-10.4); Monocytes Absolute Auto 1.2 K/mm3 (0.1-0.6); Monocytes Percent Auto 7.4 % (2.6-8.5); Neutrophils Absolute Auto 12.3 K/mm3 (1.3-6.7); Neutrophils Percent Auto 75.4 % (45.5-73.1); Platelet Count Result 187 k/mm3 (150-375); Red Cell Distribution Width 12.9 % (11.5-14.5); White Blood Count 16.4 K/mm3 (4.5-10.0)
[2021-10-04 14:44] LABS: HIV 1/2 Ab P24 Ag Result Negative (Negative)
[2021-10-05 11:53] LABS: Rapid Plasma Reagin Non-Reactive (NonReactive)
== END 2021-10-04 13:33 | disposition home or self-care (01) ==
LOC: ANHLAB 13:33
PROVIDERS: PCP Internal Medicine; Visit Provider Obstetrics & Gynecology
DX: Z34.90 Encounter for supervision of normal pregnancy, unspecified, unspecified trimester (principal); Z3A.00 Weeks of gestation of pregnancy not specified
CPT/HCPCS: 36415; 85025; 86592; 86703; G0432

== ENCOUNTER 2021-11-23 06:03 | Inpatient (IN) | payer OTHER, SELFPAY ==
[2021-11-23] VITALS (171 sets, daily range): BP systolic 66–148; BP diastolic 43–116; PULSE 64–153; RESP 18; TEMP 36.4–37.1; O2SAT 97–100; BMI 32.2
[2021-11-23 07:07] LABS: Basophils Absolute Auto 0.1 K/mm3 (0.0-0.1); Basophils Percent Auto 0.5 % (0.2-1.2); Eosinophils Percent Auto 0.3 % (0-4.4); Hematocrit 36.9 % (37.0-47.0); Hemoglobin 12.5 g/dL (12.0-15.0); Immature Granulocyte Absolute 0.35 K/mm3 (0.00-0.031); Immature Granulocyte Percent A 2.4 % (0-0.5); Lymphocytes Absolute Auto 1.72 K/mm3 (0.9-3.2); Lymphocytes Percent Auto 11.6 % (18.3-44.2); Mean Corpuscular HGB Conc 33.9 g/dl (32-36); Mean Corpuscular Hemoglobin 31.1 pg (26-34); Mean Corpuscular Volume 91.8 fl (80-100); Mean Platelet Volume 11.4 fl (7.4-10.4); Monocytes Absolute Auto 1.2 K/mm3 (0.1-0.6); Monocytes Percent Auto 8.2 % (2.6-8.5); Neutrophils Absolute Auto 11.4 K/mm3 (1.3-6.7); Platelet Count Result 162 k/mm3 (150-375); Red Blood Count 4.02 M/mm3 (4.2-5.4); Red Cell Distribution Width 13.4 % (11.5-14.5); White Blood Count 14.8 K/mm3 (4.5-10.0)
[2021-11-23] MEDS: LACTATED RINGERS 1,000 ML 125 ML IV CONT ×3 (07:13→11:55)
--- NOTE | 2021-11-23 07:39 | LDADM ---
This patient, Ariella Anderson, was admitted to Labor/Delivery/Recovery 102 on 11/23/21 at 06:03. Plans for labor, pain management and were discussed with patient. Patient/family oriented to hospital policies and general routines including ID bracelet, bed and alarms, visiting hours, pain management, procedures, bathroom and other care routines, personal items, smoking policy, room service/diet and guest tray routines, security routines, and visiting hours. Patient/Family are encouraged to report perceived risks to care and to ask questions if they do not understand what they are told or what they should do. See OBIX for further documentation.
--- NOTE | 2021-11-23 10:28 | PM.IMHP ---
H&P: HPI History of Present Illness Date/Time: 11/23/21 10:28 Chief Complaint: Induction of labor Narrative: patient is a 31-year-old at 40 weeks and 2 days admitted for medical induction of labor. course significant for prior for breech presentation. She has been counseled regarding options of trial of labor versus repeat section. She has been informed of risks benefits of both.Her questions were answered. She has opted for trial of labor. The rest of her course has been uncomplicated. presentation has been cephalic by Tera. Review of Systems Review of Systems: All systems reviewed & are unremarkable except as noted in HPI and below Constitutional: Constitutional: Reports no additional constitutional complaints and Denies headache(s) Eyes: Eyes: Denies spots in vision ENT: Reports system reviewed and no additional complaints, except as documented and Denies headache(s) Cardiovascular: Cardiovascular: Denies chest pain and Denies dyspnea Respiratory: Respiratory: Denies dyspnea Gastrointestinal: Gastrointestinal: Reports no additional gastrointestinal complaints Genitourinary: Genitourinary: Reports amenorrhea Musculoskeletal: Musculoskeletal: Reports no additional musculoskeletal complaints Integumentary/Breasts: Skin/Breast: Denies breast mass and Denies rash Neurologic: Denies headache(s) Psychiatric: Psychiatric: Reports no additional psychiatric complaints PMFSH Past Medical History Medical History Encounter for supervision of normal first , first trimester Ovarian cyst Surgical History Surgical History Previous section x1 S/P thyroid biopsy [place] teeth removed Family History Family History Father Family history of hypercholesterolemia Grandparent Family history of malignant neoplasm of breast Mother Family history of malignant neoplasm of breast in first degree relative Social History Social History Smoking status: Never smoker Alcohol intake: current Substance use: never Gender identity (if verbalized by the patient): Female Spiritual care concerns: No Meds Home Medications and Allergies Home Medications Medication Instructions Recorded Confirmed Type no.118-ferrous fumarate 1 tablet PO DAILY #90 tabs 08/16/21 11/16/21 Rx 29 mg-folic acid 1 mg chewable tablet (Se-Chinyere 19 Chewable) Allergies Allergy/AdvReac Type Severity Reaction Status Date / Time No Known Allergies Allergy Verified 11/22/21 14:41 Vital Signs Vital Signs - 24 hr 11/23/21 06:30 11/23/21 06:31 11/23/21 06:46 Temperature Pulse Rate 87 89 85 Blood Pressure 122/73 124/77 113/79 Oxygen Delivery 11/23/21 07:16 11/23/21 07:31 11/23/21 07:46 Temperature Pulse Rate 83 95 90 Blood Pressure 117/71 128/82 116/80 Oxygen Delivery 11/23/21 08:01 11/23/21 08:16 11/23/21 06:28 Temperature 97.8 F Pulse Rate 87 95 Blood Pressure 110/72 114/75 Oxygen Delivery 11/23/21 08:17 11/23/21 08:31 11/23/21 08:48 Temperature 98 F Pulse Rate 82 75 Blood Pressure 112/78 122/75 Oxygen Delivery 11/23/21 09:01 11/23/21 09:16 11/23/21 09:31 Temperature Pulse Rate 88 82 84 Blood Pressure 119/81 118/75 110/74 Oxygen Delivery 11/23/21 09:51 11/23/21 10:01 11/23/21 10:16 Temperature Pulse Rate 78 76 82 Blood Pressure 113/72 98/74 L 105/73 Oxygen Delivery 11/23/21 07:36 Temperature Pulse Rate Blood Pressure Oxygen Delivery Room Air Exam Const: General: no acute distress Other: Eyes: General: appearance normal, both eyes and all related structures Resp: Effort & Inspection: normal respiratory effort Cardio:
[2021-11-23 12:59] LABS: Rapid Plasma Reagin Non-Reactive (NonReactive)
--- NOTE | 2021-11-23 13:35 | P.PNOB_ITS ---
OB - PN: Subj Subjective Date/time seen: 11/23/21 13:35 Interval history: FHT 140 cat 1, ctx irreg, cervix 1.5.60/-2, AROM clear, IUPC placed. OB - PN: Obj Data Labs CBC & Chem 7: 11/23/21 06:31 Labs: Laboratory Results - last 24 hr 11/23/21 11/23/21 11/23/21 06:31 06:31 06:31 WBC 14.8 H RBC 4.02 L Hgb 12.5 Hct 36.9 L MCV 91.8 MCH 31.1 MCHC 33.9 RDW 13.4 Plt Count 162 MPV 11.4 H Immature Gran % (Auto) 2.4 H Neut % (Auto) 77.0 H Lymph % (Auto) 11.6 L [place] % (Auto) 8.2 Eos % (Auto) 0.3 Baso % (Auto) 0.5 Lymph # (Auto) 1.72 [place] # (Auto) 1.2 H Eos # (Auto) 0.0 Baso # (Auto) 0.1 Abs Immat Gran (auto) 0.35 H Absolute Neuts (auto) 11.4 H Absolute Nucleated RBC 0.0 Nucleated RBC % 0.0 RPR Non-reactive Blood Type O Negative Antibody Screen Negative OB - PN A/P Time Spent With Patient Time: Total time spent is greater than 50% in coordination of care (as documented) at patient's floor/unit and/or counseling patient:
[2021-11-23] MEDS: OXYTOCIN 30 UNITS/NS 500 ML 30 UNITS/500 ML BAG 999 UNITS IV CONT (19:03)
[2021-11-23] MEDS: OXYTOCIN 30 UNITS/NS 500 ML 30 UNITS/500 ML BAG 125 UNITS IV CONT (19:37)
--- NOTE | 2021-11-23 19:48 | P.PCNOB_ITS ---
OB - Delivery Note Procedure Delivery date: 11/23/21 Procedure: Vaginal after section. Events: Previous Delivery Induction method: AROM Delivery augmentation: Rupture of Membranes Delivery monitor: Internal Uterine Route of delivery: Laceration Description: Perineal - 2nd Degree Delivery repair: vicryl (3.0 vicryl) Specimen: No Quantitative Blood Loss (ml): 250 Anesthesia type: Epidural Disposition: Floor Complications: None Narrative: Patient was admitted on 11 23 2021 for induction of labor. On admission she was having irregular contractions. Her cervix had changed from her prior visit her cervix was 1-1/2 cm 60% -2 station. tracing was reassuring. She initially was planned for Cardenas catheter placement at the cervix and low-dose Pitocin but due to the increase in her cervical dilation the decision was made to do assisted rupture of membranes this was done at approximately 7:25 a.m. with clear fluid. She continued to have contractions. she progressed into active labor spontaneously. Pitocin was not started since she continued to progress into labor. She did receive an epidural upon request. She continued to progress in labor. She dilated to complete she pushed for approximately 45 minutes. during the last 2 minutes the heart rate was in the 80s and 90s. This was when the head was +3. She then pushed and delivered a male infant. The nose and mouth were suction at the perineum there was noted to be a left hand presentation. The rest of the was delivered and placed on the maternal abdomen was vigorously crying upon delivery. Delayed cord clamping for approximately 60 seconds. Cord was doubly clamped and cut. Cord gases and cord blood was obtained. The placenta delivered spontaneously and intact. She did sustain a second-degree perineal laceration repaired with 3 0 Vicryl. The lower uterine segment was palpated intact. Her uterine tone was normal. She had normal lochia. She tolerated procedure well. [place] Baby Date of : 11/23/21 Weeks of gestation at delivery: 40 gender: Male Weight (pounds): 7 Weight (ounces): 9 presentation: vertex (left compound hand presentation) position: Left Occiput Anterior Placenta delivery description: Spontaneous Cord Vessel Description: 3 Vessels score one minute: 9 score five minutes: 9 AMG Delivery Billing Delivery Delivery: Delivery Charge
[2021-11-23] MEDS: BENZOCAINE 20% AER SPR (*SP) 56 GM CAN 1 SPRAY TOPICAL (21:43)
[2021-11-23] MEDS: WITCH HAZEL 40 PADS 1 PAD TOPICAL (21:43)
[2021-11-23] MEDS: IBUPROFEN 600 MG TABLET PO (23:45)
[2021-11-23] MEDS: ACETAMINOPHEN 325 MG TABLET 650 MG PO (23:45)
[2021-11-24 03:59] VITALS: BP 100/65; PULSE 88; RESP 18; TEMP 36.2; O2SAT 99
[2021-11-24 05:01] LABS: Hematocrit 32.4 % (37.0-47.0); Hemoglobin 11.1 g/dL (12.0-15.0)
[2021-11-24 08:05] VITALS: BP 97/62; PULSE 75; RESP 18; TEMP 36.9; O2SAT 99
--- NOTE | 2021-11-24 08:20 | P.PNOB_ITS ---
OB - PN: Subj Subjective Date/time seen: 11/24/21 08:20 Patient comments: pain well controlled, tolerating diet and other (Decreasing lochia.) baby status: doing well and nursing well [place] feeding status: exclusively breast feeding OB - PN: Obj Data Labs CBC & Chem 7: 11/24/21 03:49 Labs: Laboratory Results - last 24 hr 11/23/21 11/24/21 06:31 03:49 Hgb 11.1 L Hct 32.4 L RPR Non-reactive OB - PN A/P Plan day: 1 Plan: routine care Comments: Doing well. Time Spent With Patient Time: Total time spent is greater than 50% in coordination of care (as documented) at patient's floor/unit and/or counseling patient: Review of Systems Review of Systems: All systems reviewed & are unremarkable except as noted in HPI and below Constitutional: Constitutional: Reports no additional constitutional complaints Cardiovascular: Cardiovascular: Denies dyspnea Respiratory: Respiratory: Denies dyspnea Gastrointestinal: Gastrointestinal: Reports no additional gastrointestinal complaints and Denies abdominal pain Genitourinary: Genitourinary: Reports no additional female genitourinary complaints Exam 2 Const: General: no acute distress, alert and awake Resp: Effort & Inspection: normal respiratory effort GI: GI Palp: No Tenderness to palpation present (GI) Other: Fundus nontender, below umbilicus Psych: Appearance: grossly normal Affect: normal affect Other: Abd: fundus firm below umbilicus, nontender Perineum: healing Ext: nontender
--- NOTE | 2021-11-24 08:39 | WPDANESPN ---
Anes - Prog Note Post-Op Date/Time: 11/24/21 08:39 Vital Signs: Last Vital Signs Temp 36.2 C L 11/24/21 03:59 Pulse 88 11/24/21 03:59 Resp 18 11/24/21 03:59 BP 100/65 11/24/21 03:59 Pulse Ox 99 11/24/21 03:59 O2 Del Method Room Air 11/23/21 23:10 I/O: Intake & Output 11/23/21 11/24/21 11/24/21 23:59 07:59 15:59 Intake Total 500 Output Total 250 Balance 250 Laboratory Tests 11/24/21 03:49 11/23/21 11/24/21 06:31 03:49 Hgb 11.1 L Hct 32.4 L RPR Non-reactive Patient Feedback: Patient satisfied with anesthetic care.
--- NOTE | 2021-11-24 08:40 | WPDANLDPN2 ---
Anes-Prog Note L&D Date/Time: 11/24/21 08:40 Neuro status: Neuro function grossly intact. Vital Signs: Last Vital Signs Temp 36.2 C L 11/24/21 03:59 Pulse 88 11/24/21 03:59 Resp 18 11/24/21 03:59 BP 100/65 11/24/21 03:59 Pulse Ox 99 11/24/21 03:59 O2 Del Method Room Air 11/23/21 23:10 Pain score (VAS): 0 I/O: Intake & Output 11/23/21 11/24/21 11/24/21 23:59 07:59 15:59 Intake Total 500 Output Total 250 Balance 250 Patient feedback: Patient satisfied with anesthetic care.
[2021-11-24] MEDS: DOCUSATE SODIUM LIQ 100 MG/10 ML UDC PO ×2 (10:18→17:14)
[2021-11-24] MEDS: IBUPROFEN SUSPENSION 200 MG/10 ML UDC 600 MG PO ×2 (10:19→17:17)
[2021-11-24] MEDS: ACETAMINOPHEN ELIXIR 325 MG/10.15 ML UDC 650 MG PO ×2 (10:20→17:15)
--- NOTE | 2021-11-24 12:44 | PC.NURSE ---
[id number] Introductions were made, then consulted with patient to assess needs related to . Mother led the conversation with her experience feeding her so far. Mother works well with her with encouragement and education. Encouraged understanding of the benefits of skin to skin (unwrapping and placing vertically on her chest), responsive feeding and how to watch for early feeding signs, frequency of feeding on demand about every 8-12 times in 24 hours (every 2-3 hours), milk production, duration of feeding, signs of adequate intake/output and how to record on the feeding sheet. Reviewed positioning and ear, shoulder, hip alignment, supporting the breast, asymmetrical latch (off-center), and leading with the chin with a big open side gape. Infant latched to the right breast in football position after detaching and reattaching for optimal latching. Infant latched effectively. After about 5 min mother states it is pinching a litle bit . Education given to mother of how to visualize suck/swallow ratios and drinking at the breast. Infant was able to maintain latch for 3 - 5 min feedings without discomfort to mother. Mother voiced the right breast is the side that doesn't prefer . After the first detaching off the breast there is a slight misshaped nipple. Nipple care reviewed with optimal latch and good positioning. Infant brought up to mother's chest vertically to stimulate infant to eat with massage and talking. optimally latched to the left breast with no discomfort to mother with mother acknowledging swallowing with visual cues and hearing. Resources used to facilitate learning were used with the mom and baby guide. Mother voiced understanding of responsive feedings, stimulating with skin to skin, hand expressed colostrum, massage, talking to infant to encourage if it has been 2 -3 hours since the start of the last , to call if infant does not latch or there is discomfort with . Reported to the primary RN.
--- NOTE | 2021-11-24 15:29 | PC.NURSE ---
[id number] Consulted with patient to assess needs related to . Discussed with parents using a pie demonstration of how to watch for good infant intake with voids, stooling, jaundice and weight adequate and swallowing at the breast every 2-3 hours. Mother did a teach-back of how to stimulate infant to wake to feed and how to detach if needed. Reviewed optimal latching, how to visualize swallowing and there should be no pain like pinching or biting. Mother voiced understanding of the education shared, calling for assistance if the infant does not latch or if there is discomfort with . Reported to the primary RN.
[2021-11-24 16:20] VITALS: BP 99/56; PULSE 86; RESP 14; TEMP 36.4; O2SAT 99
[2021-11-24 19:15] VITALS: BP 104/71; PULSE 79; RESP 16; TEMP 36.4
[2021-11-25] MEDS: IBUPROFEN SUSPENSION 200 MG/10 ML UDC 600 MG PO (07:59)
[2021-11-25] MEDS: DOCUSATE SODIUM LIQ 100 MG/10 ML UDC PO (07:59)
[2021-11-25 08:30] VITALS: BP 118/72; PULSE 95; RESP 16; TEMP 36.4; O2SAT 100
--- NOTE | 2021-11-25 09:31 | PM.OBPNVD ---
OB - PN: Subj Subjective Date/time seen: 11/25/21 09:31 Patient comments: pain well controlled, tolerating diet and other (Decreasing lochia.) baby status: doing well and nursing well [place] feeding status: exclusively breast feeding OB - PN: Obj Data Labs CBC & Chem 7: 11/24/21 03:49 OB - PN A/P Plan day: 1 Plan: routine care Comments: Patient doing well. Discharge to home today. Discharge precautions discussed. Time Spent With Patient Time: Total time spent is greater than 50% in coordination of care (as documented) at patient's floor/unit and/or counseling patient: Exam Psych: Affect: normal affect Other: Abd: fundus firm below umbilicus, nontender Perineum: healing Ext: nontender
--- NOTE | 2021-11-25 10:03 | P.DS_ITS ---
DS: Admitting Diagnosis Discharge Date 11/25/2021 Admitting Diagnosis Medical induction of labor DS: Discharge Diagnosis Discharge Diagnosis Plan Delivery normal OB - DS: Summary Hospital Course Hospital Course: Patient admitted for MIL. She was having contractions and labor augmented with assisted rupture of andrea brito. She progressed into active labor and had a vaginal after . she did well. She had adequate pain control. She was ambulating. Baby was doing well. She was discharged to home with discharge precautions. OB Procedures : Ultrasound OB Procedures Intrapartum: Spontaneous Vag Delivery OB Procedures: : None Peripartum Data Infant Delivery Method: Natural Vaginal Laceration Description: Perineal - 1st Degree complications: none Status at Discharge Functional status at discharge: independent ambulation Time Spent with Patient Time attestation: Total time spent providing and/or coordinating discharge services: Exam Const: General: cooperative Orientation/consciousness: oriented to person, oriented to place and oriented to time HENMT: General nose exam: Normal external nose present Eyes: General: appearance normal, both eyes and all related structures Resp: Effort & Inspection: normal respiratory effort GI: Inspection: normal to inspection : External Female Exam: normal external appearance Other: perineum healing Skin: General skin exam: normal color Neuro: General: oriented to person, oriented to place and oriented to time Extrem: General: normal to inspection and no calf tenderness Psych: Appearance: grossly normal Mental Status: mental status grossly normal Discharge Plan Discharge Attending physician on discharge: Grant Venegas Discharging Clinician: Grant Venegas Anticipated Discharge Date/Time: 11/25/21 09:32 Patient Disposition: Home, Self-Care Activity: may shower, no straining and pelvic rest Diet: regular Discharge Instructions: Pelvic rest for 4-6 weeks. May take over the counter Ibuprofen or Tylenol for pain. Call if saturating more than a pad an hour, leg redness, pain and swelling, temperature>100.4. No strenuous activity. Take daily vitamin. Patient Instructions: Antibiotic Form Stand Alone Forms: General Discharge Information Follow-up/Referrals: Grant Venegas MD [Physician] - 2 Weeks Discharge Medications: Continued Se-Chinyere 19 Chewable 29 mg iron- 1 mg tablet,chewable 1 tablet PO DAILY Qty: 90 3RF Date of admission: 11/23/21 06:03 Primary Care Provider: Leena,Marizol Barney Admitting Provider: Grant Venegas Attending physician on admission: Grant Venegas Condition: Stable
--- NOTE | 2021-11-25 14:39 | PC.NURSE ---
[id number] Consulted with patient to assess needs related to . Mother led conversation with her experience with feeding baby so far. Mother works well with her infant with encouragement. Reviewed working with , breast, nipples and how to protect the nipples with an optimal deep latch, good positioning, and good hand washing. Encouraged understanding the benefits of skin to skin, responding to feeding cues, frequencies of feeding 8-12 times in 24 hours (approximately 2-3 hours), duration of feedings, milk production, intake/output feeding sheet and signs of adequate intake encouraging swallowing at the breast. Reviewed positioning and alignment, supporting breast, off-centered (asymmetrical latch) and leading with the chin with big open wide gape. Infant latched optimally to the breast. Education given to mother of how to visualize suck/swallow ratios and drinking at the breast. was able to maintain latch without discomfort to mother. Nipple care reviewed with optimal latch, good positioning, and have clean hands when touching the nipple/breast as needed. Resources used to facilitate learning were used from the visual handout/ tool/mom and baby guide. Mother is feeding appropriately for growth of and understands stimulating infant to eat if needed. Infant has had appropriate feedings in the last 24 hours meets the outcomes for weight, output and jaundice at this time. Mother states she is confident to continue effectively breastfeed her infant at home or when to call for assistance and denies any additional assistance or education at this time. Reinforced understanding of milk production, transition of milk, signs of adequate intake, prevention/relief of engorgement, responsive after visualizing feeding cues, the different methods of stimulating infant to breastfeed 2-3 hours after the start of the last feeding, community resources, medication information reviewed per [employer] and when to call a provider using the resource of the mom and baby guide/[facility] website. Mother voiced understanding of the education shared.
[2021-11-26 10:21] VITALS: BP 100/51; PULSE 66; RESP 16; TEMP 36.8; O2SAT 99
== END 2021-11-25 13:48 | disposition home or self-care (01) | DRG 807 ==
LOC: ANHLDR 06:08 → ANHOB2 22:54
PROVIDERS: Admitting Provider Obstetrics & Gynecology; PCP Nurse Practitioner Family; Visit Provider Obstetrics & Gynecology
DX: O34.211 Maternal care for low transverse scar from previous cesarean delivery (principal); Z37.0 Single live birth; Z3A.40 40 weeks gestation of pregnancy; O70.1 Second degree perineal laceration during delivery; O32.6XX0 Maternal care for compound presentation, not applicable or unspecified
CPT/HCPCS: 36415; 85014; 85018; 85025; 86592; 86850; 86900; 86901; A9270; J2590; J2795; J7120

== ENCOUNTER 2021-12-02 12:41 | Outpatient (RCR) | payer OTHER, SELFPAY ==
--- NOTE | 2021-12-02 16:11 | PC.NURSE ---
In- 1241 Out- 1421 Reason for visit: Concerns related to latch issues and weight. History: mother is concerned about her not getting enough to eat , not gaining weight well, and latching shallow . History: was delivered on 11/23/2021 , vertex, and had some post delivery grunting with normal oxygen saturation resolved with brief CPAP. APGARS 9/9 at 40 weeks gestation. Infant has had 14 voids and 9 yellow seedy stools in the last 24 hours. Observations: Infant is sleepy but wakes with stimulation of undressing, touch, and talking. Jaundice is present. Mother states infant had some phototherapy after discharge. Mother is healthy with no complaints with exception to her concerns causing her anxiety to increase. Mother states she breastfeeds every 2 hours and pumps twice a day to stimulate milk production. There is soreness on initial latch, then it subsides. She had a plugged duct but she was able to move it out well with massage, , and pumping. Mother latches infant shallow on both breast. has a tight tongue but moves tongue well over the gum line. Reviewed optimal latch with waiting and encouraging a big, open wide gape. Watching for rocking motion and swallowing at the breast. Infant demonstrates effective for a few minutes, then latch is assessed as <90 degrees. is detached from the left breast and nipple is misshaped slightly like a tube of lipstick. A few attempts made to achieve an optimal latch with infant demonstrating non-nutritive sucking on the left breast. Infant stimulated for waking to breastfeed and positioned to the right breast using cross cradle where infant latches optimally and effectively suck/swallows drinking for 10-15 min. weighed at 3381 gms, then burped and encouraged to drink at the breast for another 9 mls. Infant ingested 58 mls in 30-40 min mainly on the right breast. weight: 3420 gm Discharge weight: 3267 gm Lowest weight: 3150 gm Last weight: 7-4 in the office on Sunday11/28/2021 Pre-feed weight: 3332 gm Post-feed weight: 3390 gm Plan of Care: Mother will using the stimulating techniques to be more assertive with latching optimally with big, open, wide gape. She will encourage drinking at the breast and stop non-nutritive sucking at feeding times. Mother states infant will drink well on the left breast when he is really hungry or mad . Mother will pump the left breast if doesn't breastfeed effectively on the left. Mother will also work with waking to drink more at each feeding every 2-3 hours using massage and compression to encourage milk flow. Follow up plans: Mother has an appt with the ICP on Sunday for a weight check.
--- NOTE | 2021-12-05 10:24 | PC.NURSE ---
1712 - RN followed up with a phone call to Dr. Canales after faxing the OP appt notes. Discussed the concerns with infants sleeping, jaundice, good voids/stools, and habits. Dr. Canales plans to Dr. Mayorga for a follow up phone call on 12/03/2021 with mother to see how feedings are going.
== END 2022-02-15 09:14 | disposition home or self-care (01) ==
LOC: ANHOBOP 12:41
PROVIDERS: PCP Nurse Practitioner Family; Visit Provider Pediatrics
DX: Z39.1 Encounter for care and examination of lactating mother (principal)
CPT/HCPCS: 99213; G0463

== ENCOUNTER 2022-10-13 13:15 | Outpatient (RCR) | payer OTHER, SELFPAY ==
--- NOTE | 2022-07-27 15:05 | PTOPEVAL1 ---
Assessment and note entered by Milka Sparks DPT Evaluation Information Assessment Status Evaluation Subjective Information Pt reports she feels that her stomach has not gone down . Thinks she has also been diagnosed with a hernia. Pt has had 2 babies, and then on 11/23/21. No other complications. 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 Plans to start exercising and is afraid this may limit her . Pt reports difficulty and core weakness with lifting and caring for her children, getting off the floor. Reports abdominal pain when she gets hit in that area, mild back pain occasionally. Denies pelvic pain. Urinates 6 times a day and none at night. Denies urine leakage. BM every other day, denies pain. Pt is not sexually active currently. Previously was able to exercise and no weakness with lifting etc. Reported Pain Level Pain Score 0: Self Report Assessment PT Clinical Summary The patient is presenting to skilled therapy with decreased core strength and a diastasis recti following 2 pregnancies and deliveries. She reports difficulty lifting her children and getting up off the floor due to her core weakness. She will benefit from therapy to address these impairments and safely return to her prior level of function. Plan of Care Interventions Manual Therapy,Neuro Re-education,Patient/ Caregiver Education,Therapeutic Activities, Therapeutic Exercise,Self-Care/Home Management PT Services Indicated Yes Treatment Frequency and 1 time a week for 6 weeks Duration These treatments will address the objective and functional deficits as defined above. The patient will be advanced safely and appropriately in order for the patient to progress towards his/her prior level of function. Additional exercises will be introduced and as well as a comprehensive home exercise program upon discharge, if needed, ?to ensure carryover of functional gains achieved in the clinic. This treatment plan has been reviewed and agreement upon by the patient.
--- NOTE | 2022-08-28 09:30 | PCPTNOTE ---
Patient called to cancel appointment. Will be in next week
--- NOTE | 2022-09-08 15:19 | PTOPPROG ---
Assessment and note entered by Milka Sparks DPT Evaluation Information Assessment Status Progress Subjective Information Pt reports things have been going well in therapy, her mobility and strength has improved. Thinks she has noticed the hernia has gone down. Noticing it is easier to get up off the ground, picking up her children, has been able to work out more as well. Assessment PT Clinical Summary The patient has made good progress in therapy. She demonstrates improved core strength and diastasis closure. 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 Due to her progress, plan to continue therapy to further address strength and function at home. Plan of Care Interventions Manual Therapy,Neuro Re-education,Patient/ Caregiver Education,Therapeutic Activities, Therapeutic Exercise,Self-Care/Home Management PT Services Indicated Yes Treatment Frequency and 1 visit every other week for 3 visits Duration These treatments will address the objective and functional deficits as defined above. The patient will be advanced safely and appropriately in order for the patient to progress towards his/her prior level of function. Additional exercises will be introduced and as well as a comprehensive home exercise program upon discharge, if needed, ?to ensure carryover of functional gains achieved in the clinic. This treatment plan has been reviewed and agreement upon by the patient.
--- NOTE | 2022-10-13 13:27 | PTOPDC ---
Assessment and note entered by Milka Sparks DPSarmad Evaluation Information Assessment Status Discharge Subjective Information Pt reports she is feeling good today. Feels therapy has continued to go well and I definitely feel stronger . Less difficulty getting up off the floor and also thinks her hernia has gone down . Reported Pain Level Pain Score 0: Self Report Assessment PT Clinical Summary The patient has made excellent progress in therapy and demonstrates further closure of her diastasis recti to approximately 2.5 finger width at her umbilicus. She reports she feels stronger overall and has noticed it is easier to get off the floor. Due to her progress, plan for discharge this date . She has been educated to continue her HEP and contact MD and/or PT as needed. Plan of Care PT Services Indicated No
== END 2022-10-13 15:51 | disposition home or self-care (01) ==
LOC: ANHGOSHPT 13:15
PROVIDERS: PCP Nurse Practitioner Family; Visit Provider Obstetrics & Gynecology
DX: M62.08 Separation of muscle (nontraumatic), other site (principal)
CPT/HCPCS: 97110; 97112; 97140; 97161

== ENCOUNTER 2023-07-09 08:09 | Outpatient (CLI) | payer OTHER, SELFPAY | END 2023-07-09 08:10 | disposition home or self-care (01) | LOC: ANHGOSHLAB 08:11 | PROVIDERS: Visit Provider Obstetrics & Gynecology | DX: E04.9 Nontoxic goiter, unspecified (principal) | CPT/HCPCS: 36415; 84443 ==

== ENCOUNTER → 2023-07-09 08:24 | Outpatient (CLI) | payer OTHER, SELFPAY ==
--- NOTE | ~2023-07-09 | US_ITS ---
EXAMINATION: US thyroid DATE: 07/09/2023 08:40 INDICATION: Nontoxic goiter TECHNIQUE: Multiple ultrasound images of the thyroid were obtained. COMPARISON: None. FINDINGS: The right thyroid lobe measures 3.6 x 1.9 x 1.5 cm. The left thyroid lobe measures 5.4 x 2.1 x 2.4 c m. 3.7 cm wider than tall predominately solid hypoechoic nodule with internal coarse calcification a nd with lobular margins (TI-RADS 5, highly suspicious , FNA if >=1.0 cm, annual followup is >0.5 cm). There is normal echotexture and echogenicity throughout the thyroid gland with diffuse mild increase d vascular flow on color Doppler. IMPRESSION: 1. 3.7 cm TI RADS 5 left thyroid nodule for which ultrasound-guided biopsy would be recommended. Reviewed, dictated and finalized at location A. E DELIVERY SERVICE DRIVER IMPRESSION: 1. 3.7 cm TI RADS 5 left thyroid nodule for which ultrasound-guided biopsy woul d be recommended.
== END ==
PROVIDERS: PCP Otolaryngology; Visit Provider Obstetrics & Gynecology
DX: E04.9 Nontoxic goiter, unspecified (principal)
CPT/HCPCS: 76536

== ENCOUNTER 2023-08-07 12:34 | Outpatient (CLI) | payer OTHER, SELFPAY ==
--- NOTE | ~2023-08-07 | US_ITS ---
EXAMINATION: US FNA w image guidance DATE: 08/07/2023 13:57 INDICATION: Left thyroid mass TECHNIQUE: A time-out was performed to verify the patient's name, date of , and procedure to be performed . The procedure and its benefits and risks were discussed with the patient. Risks specifically discus sed included bleeding and infection. The patient understood the risks and agreed to proceed. The neck was prepped and draped in the usual sterile manner. 3 mL 1% lidocaine was used for local anesthesia . 3 passes were made with a 25G needle into the lesion. A 21G was then utilized to aspirate the cent ral hypoechoic cystic component of the lesion which yielded approximately 5 mm of opaque yellowish-or galindo fluid. An additional 3 passes were made with a 25G needle into the remaining wall of the decompr essed lesion. Appropriate needle location was documented with continuous sonographic guidance. A keisha rile bandage was applied. There were no immediate complications. FINDINGS: Grayscale ultrasound images demonstrate biopsy needles advanced into a 3.7 x 1.9 x 2.2 cm complex cys tic left thyroid mass.. IMPRESSION: 1. Successful ultrasound-guided fine needle aspiration of the 3.7 cm left thyroid mass of concern wh ich was found to be almost entirely cystic and able to be nearly completely decompressed with aspirat ion. Reviewed, dictated and finalized at location A. IMPRESSION: 1. Successful ultrasound-guided fine needle aspiration of the 3.7 cm left thyr oid mass of concern which was found to be almost entirely cystic and able to be nearly completely decompressed with aspiration.
== END 2023-08-07 12:35 | disposition home or self-care (01) ==
PROVIDERS: PCP Otolaryngology; Visit Provider Otolaryngology
DX: E04.1 Nontoxic single thyroid nodule (principal)
CPT/HCPCS: 10005; 88108; 88172; 88173; 88305

== ENCOUNTER 2023-10-08 01:01 | Day surgery (SDC) | payer OTHER, SELFPAY ==
[2023-10-02 09:43] VITALS: BMI 25.8
--- NOTE | 2023-10-02 09:48 | PC.NURSE ---
Report to the Outpatient Waiting Room, entrance under the green pavilion located off [facility], at time _0600_ on date _[id number]_. Planned Procedure Time: _0730_. Time changes happen often and if your time is changed the preop area will call you the afternoon before. - You and your visitor will be asked to self-screen and do not enter if you have any COVID symptoms. - A mask is optional within the hospital at this time. Patients may have clear liquids (water, carbonated beverages, clear teas, apple juice) until 3 hours prior to surgery with a maximum of 20 ounces. - No food from midnight until time of surgery Take the following medications with a SIP of water the morning of surgery: ____None DO NOT STOP ANY OF YOUR OTHER PRESCRIPTION MEDICATIONS PRIOR TO SURGERY ?EXCEPT THE FOLLOWING Medications to discontinue per physician Multivitamin Date to take last aspi___[id number] Please no make-up, nail faroese, hairspray, perfume, deodorant, or body powder the day of surgery. No jewelry (including any body piercings) or valuables the day of surgery, leave them at home. Please take a shower or bath the night before, or the morning of, surgery with an antibacterial soap. Wear comfortable, loose fitting clothing. - Jewelry must be removed prior to entering the operating room. Rings and piercings that are not removed may be cut off. - The hospital will not accept responsibility for valuables. - Please leave all valuables, including medications, at home the day of surgery. If you are going home after surgery, a licensed rolloff truck driver must drive you home. - NO public transportation without another adult if you receive anesthesia. - We recommend that an adult stay with you for 24 hours following discharge. - We also recommend that you do not drive, make important decision, drink alcoholic beverages, or take any drugs that were not prescribed by your health care provider for at least 24 hours after your discharge time. Follow any additional instructions given to you from your surgeon. If you or anyone in your household have experienced Covid symptoms in the past week, please notify your surgeon or the nurse liaison at the phone number below for possible testing. Telephone instructions given to __Erin___and asked if any additional questions and then verbalized understanding. Patient advised to call surgeon office or pre surgery nurse liaison [phone] if any additional questions.
[2023-10-08] VITALS (9 sets, daily range): BP systolic 108–121; BP diastolic 67–80; PULSE 64–85; RESP 16–19; TEMP 36.1–36.3; O2SAT 98–100
[2023-10-08] MEDS: LACTATED RINGERS 1,000 ML 30 ML IV CONT ×2 (06:40→09:31)
[2023-10-08] MEDS: ACETAMINOPHEN 500 MG TABLET 1000 MG PO (06:45)
--- NOTE | 2023-10-08 07:04 | P.HP_ITS ---
H&P: HPI History of Present Illness Date/Time: 10/08/23 07:04 Chief Complaint: left thyroid mass Narrative: Ariella has a left thyroid mass, suspicious for malignancy on needle biopsy Review of Systems Review of Systems: All systems reviewed & are unremarkable except as noted in HPI and below PMFSH Past Medical History Medical History Encounter for supervision of normal first , first trimester Ovarian cyst Vaginal delivery Surgical History Surgical History Previous section x1 S/P thyroid biopsy [place] teeth removed Family History Family History Father Family history of hypercholesterolemia Grandparent Family history of malignant neoplasm of breast Mother Family history of malignant neoplasm of breast in first degree relative Social History Social History Smoking status: Never smoker Alcohol intake: current Drinks per week: 1 Substance use: never Do You Feel Safe in your Home?: Yes Lack of Transportation: No Lack of Food: Never True Current Housing: I Have Housing Concerned About Future Housing: No Difficulty Paying Gas/Electric Bills: No Difficulty Paying for Meds: No Currently Unemployed: No Difficulty w/ Childcare or Family Care: No Living arrangements: with family Gender identity (if verbalized by the patient): Female Spiritual care concerns: No Meds Home Medications and Allergies Home Medications Medication Instructions Recorded Confirmed Type multivitamin 1 tablet PO DAILY 10/02/23 10/02/23 History Allergies Allergy/AdvReac Type Severity Reaction Status Date / Time No Known Allergies Allergy Verified 10/02/23 09:43 Vital Signs Vital Signs - 24 hr 10/08/23 06:21 Temperature 36.3 C L Pulse Rate 85 Respiratory Rate 16 Blood Pressure 121/70 Pulse Oximetry 100 Oxygen Delivery Room Air Exam Narrative: 3.9cm left thyroid mass, suspicious on F NA. No cervical adenopathy, compressive symptoms, exam is otherwise normal Assessment and Plan Assessment and plan (1) History of thyroid cyst: Code(s): Z86.39 - Personal history of other endocrine, nutritional and metabolic disease Status: Acute (2) Enlarged thyroid: Code(s): E04.9 - Nontoxic goiter, unspecified Status: Acute Plan Ariella has enlarged left thyroid cyst, suspicious on FNA, here for left thyroid lobetomy, possible total thyroidectomy based on intraoperative findings. r/b/a reviewed with pt who understands and agrees to proceed with surgery. Neck marked. Refer to outpt H&P for further details.
--- NOTE | 2023-10-08 07:05 | WPDANESEPPF ---
Anes - Initial Pre Proc Eval Procedure: Operation Date: 10/08/23 07:30 Proposed Procedures p Left Thyroid Lobectomy, Possible Total Thyroidectomy - Salvador Day MD Date/Time: 10/08/23 07:05 Surgeon: Salvador Day MD Pre Op Diagnosis: thyroid nodule Patient Data Age: 33 Gender: F Height: 1.68 m Weight: 76 kg Last Vital Signs Temp 97.4 F L 10/08/23 06:21 Pulse 85 10/08/23 06:21 Resp 16 10/08/23 06:21 BP 121/70 10/08/23 06:21 Pulse Ox 100 10/08/23 06:21 O2 Del Method Room Air 10/08/23 06:21 Allergies Allergy/AdvReac Type Severity Reaction Status Date / Time No Known Allergies Allergy Verified 10/02/23 09:43 Home Medications Medication Instructions Recorded Confirmed Type multivitamin 1 tablet PO DAILY 10/02/23 10/02/23 History Patient hx anesthesia problems: none Family hx anesthesia problems: none Results Review: All pre-operative results and documents have been reviewed as part of the pre-operative evaluation. [facility] Past Medical History Medical History Encounter for supervision of normal first , first trimester Ovarian cyst Vaginal delivery Surgical History Surgical History Previous section x1 S/P thyroid biopsy [place] teeth removed Family History Family History Father Family history of hypercholesterolemia Grandparent Family history of malignant neoplasm of breast Mother Family history of malignant neoplasm of breast in first degree relative Social History Social History Smoking status: Never smoker Alcohol intake: current Drinks per week: 1 Substance use: never Do You Feel Safe in your Home?: Yes Lack of Transportation: No Lack of Food: Never True Current Housing: I Have Housing Concerned About Future Housing: No Difficulty Paying Gas/Electric Bills: No Difficulty Paying for Meds: No Currently Unemployed: No Difficulty w/ Childcare or Family Care: No Living arrangements: with family Gender identity (if verbalized by the patient): Female Spiritual care concerns: No Anes - Eval Final PreProcedure Day of Procedure 10/08/23 07:05 Patient weight: normal Heart: regular rate and rhythm Lungs: clear to auscultation Airway: Mallampati scale class 1 Neurological: alert and oriented Last oral intake: >/= 8 hours ASA classification: I Emergent: no Anesthetic plan: proceed Anesthesia type and monitoring: general ETT and standard monitoring Results Review: All pre-operative results and documents have been reviewed as part of the pre-operative evaluation. Thyroid cyst noted, no difficulty w phonation, only notices occ issues w swallowing. Informed Consent: The patient's anesthetic plan and its attendant risks and benefits were discussed with the patient/family/POA. Questions were solicited and answers provided to the satisfaction of the patient/family/POA.
--- NOTE | 2023-10-08 07:06 | WPDHPUPDATE1 ---
History and Physical Update Update Date/Time: 10/08/23 07:06 History and Physical has been reviewed, including an updated exam of the patient. There are NO changes in the patient's condition. Risks, benefits, and alternatives have been discussed and questions answered. Patient agrees to proceed with procedure.
[2023-10-08] MEDS: ceFAZolin 2 GM/D5W 50 ML 2 GM/50 ML BAG IVPB (07:37)
[2023-10-08] MEDS: MUPIROCIN 2% OINT 22 GM TUBE 1 APPLIC TOPICAL (08:07)
--- NOTE | 2023-10-08 09:32 | W.PM.PROC2 ---
Procedure Note - Detailed Date of Procedure 10/08/23 Pre-op Diagnosis thyroid nodule Post-op Diagnosis Same Procedure Performed Left thyroid lobectomy with laryngeal intraoperative nerve monitoring Surgeon Salvador Day MD Anesthesia General Indications Atypical left thyroid nodule Findings RLN intact at end of case, surgicel placed, superior and inferior parathyroid identified and preserved. No pathologic adenopathy. Description of Procedure On the date of the procedure the patient was met in the preoperative area. The risks and benefits of the procedure reviewed with the patient who elected to proceed.? The patient was brought back to the operating room by the anesthesia team and underwent general endotracheal anesthesia with the NIM tube being appropriately placed.? Once an adequate plane of anesthesia was obtained a timeout was performed to assure the correct patient identity and procedure to be performed which they were. The patient's neck landmarks were marked and the proposed incision was injected with 1% lidocaine with 1:100,000 epinephrine.? The patient was then prepped and draped in the normal fashion for a thyroidectomy.? Neuro monitoring with a NIM endotracheal tube and nerve monitor were utilized throughout the surgery.? A shoulder roll was placed. A 4 cm incision was made two finger breadths above the sternal notch in a skin crease.?The incision was carried through subcutaneous tissue to the subcutaneous fat.? Electrocautery was used down to the level of the platysma which was incised. The strap muscles were identified and at the midline through the raphae.? The thyroid was identified and the strap muscles were elevated off of the left lobe. The left thyroid lobe was retracted medially and blunt dissection was carried out to free the thyroid from the surrounding strap muscles.? The superior pole of the thyroid was identified and the vessels were dissected and cauterized and ligated using harmonic scalpel.? The inferior pole was then identified and the vessels were similarly ligated with harmonic scalpel.? The thyroid was retracted medially and the superior parathyroid gland was identified and was dissected free from the thyroid gland.? The recurrent laryngeal nerve was then identified and dissected free of surrounding tissue. The nerve was confirmed with the prass probe as intact and the correct anatomic tissue. With the thyroid free from the recurrent nerve, it was then elevated and retracted medially and dissected free from the trachea. Irene?s ligament was taken down with bipolar and monopolar cautery.? The pyramidal lobe was also dissected free from surrounding tissue using harmonic. The isthmus was divided using harmonic and the left lobe was removed from the neck. Marking suture placed at superior left lobe. The wound cavity was examined carefully. No bleeding was noted. Hemostasis obtained and confirmed with bipolar cautery. Surgicel was placed in the left tracheal groove. The strap muscles were re-approximated with a 3-0 Vicryl.? The platysma was closed with 3-0 Vicryl.? The deep dermal sutures were placed using 4-0 monocryl.? The skin was closed with a 4-0 Monocryl running subcuticular.? The incision was closed with dermabond. No drain was placed. The care the patient was transferred back to the anesthesia team and the patient was awoke in the operating room and was transferred back to the PACU in stable condition without complication. Salvador Day M.D. Estimated Blood Loss 5 Drains No Packing No Pathology Yes (left thyroid lobectomy, suture kahn superior) Complications None Condition Stable Disposition PACU
[2023-10-08] MEDS: fentaNYL CITRATE INJ (*CRX) 100 MCG/2 ML VIAL 25 MCG IV PUSH ×2 (10:02→10:13)
[2023-10-08] MEDS: ONDANSETRON INJ 4 MG/2 ML VIAL IV PUSH (10:32)
[2023-10-08] MEDS: oxyCODONE (*CRX) 5 MG/5 ML ORAL SOLN IR PO (11:01)
== END 2023-10-08 11:35 | disposition home or self-care (01) ==
PROVIDERS: Visit Provider Otolaryngology
PROC: (CPT 60220; principal; 2023-10-08 07:30)
DX: E04.1 Nontoxic single thyroid nodule (principal); Z98.890 Other specified postprocedural states; Z80.3 Family history of malignant neoplasm of breast
CPT/HCPCS: 60220; 88307; A9270; J0330; J0690; J1100; J2250; J2405; J2704; J3010; J7120

== ENCOUNTER 2023-10-31 07:55 | Outpatient (CLI) | payer OTHER, SELFPAY | END 2023-10-31 07:56 | disposition home or self-care (01) | DX: E04.1 Nontoxic single thyroid nodule (principal) | CPT/HCPCS: 36415; 84443 ==

== ENCOUNTER 2024-01-04 14:40 | Outpatient (CLI) | payer OTHER, SELFPAY ==
--- NOTE | ~2024-01-04 | US_ITS ---
EXAMINATION: US OB <=14 wk fetus w TV DATE: 01/04/2024 15:08 INDICATION: First trimester with amenorrhea TECHNIQUE: Real-time pelvic ultrasound utilizing both a transvaginal and transabdominal probe was pe rformed. The interpreting radiologist was not present for the study. COMPARISON: None. FINDINGS: The uterus measures 11.4 x 7.7 x 5.3 cm. There is an intrauterine gestational sac. A yolk sac and fe jessica pole are identified. The crown rump length measures 1.4 cm, which correlates with an estimated ge stational age of 7 weeks and 5 days. heart motion is identified measuring 165 beats per minute (bpm) by M-mode Doppler. 2.6 x 2.5 x 1.6 cm mixed hypoechoic and anechoic subchorionic hematoma along the left side of the gestational sac. The right ovary measures 3.1 x 2.9 x 2.4 cm. 1.9 cm corpus luteum cyst in the right ovary. Vascular f low at the right ovary on color Doppler. The left ovary is not visualized. There is no free fluid in the pelvis. IMPRESSION: 1. Single living fetus with heart rate of 165 bpm. 2. Gestational age by ultrasound of 7 weeks 5 day(s) +/- 5 day(s) with ultrasound estimated date of delivery (BALDOMERO) of 08/17/2024. 2. 2.6 x 2.5 x 1.6 cm subchorionic hematoma. Reviewed, dictated and finalized at location A. IMPRESSION: 1. Single living fetus with heart rate of 165 bpm. 2. Gestational age by ultrasound of 7 weeks 5 day(s) +/- 5 day(s) with ultraso und estimated date of delivery (BALDOMERO) of 08/17/2024. 2. 2.6 x 2.5 x 1.6 cm subchorionic hematoma.
== END 2024-01-04 14:41 ==
PROVIDERS: Visit Provider Nurse Practitioner Obstetrics & Gynecology
DX: O41.8X11 Other specified disorders of amniotic fluid and membranes, first trimester, fetus 1 (principal); N91.2 Amenorrhea, unspecified; Z3A.00 Weeks of gestation of pregnancy not specified
CPT/HCPCS: 76801; 76817

== ENCOUNTER 2024-01-17 08:51 | Emergency (ER) | payer OTHER, SELFPAY ==
[2024-01-17 08:58] VITALS: BP 117/70; PULSE 82; RESP 18; TEMP 36.6; O2SAT 100
[2024-01-17 09:16] VITALS: BP 119/68; PULSE 90; RESP 16; TEMP 36.6; O2SAT 100
[2024-01-17 10:21] LABS: Add Urine Microscopic? YES; Appearance Urine Clear (Clear); Bacteria Urine 1+ /hpf; Bilirubin Urine Negative (Negative); Blood Urine Negative (Negative); Color Urine Yellow (Yellow); Glucose Urine UA Negative (Negative); Ketones Urine Negative (Negative); Leukocyte Esterase Ur 2+ LEU/UL (Negative); Nitrate Urine Negative (Negative); Non Pathogenic Casts 0-2; Protein Urine Negative (Negative); RBC Urine 0-2 /hpf (0-2); Specific Grav Ur 1.009 (1.001-1.035); Squamous Epithelial Cell Urine Few /hpf (Few); Urobilinogen Urine 0.2 mg/dL (<2.0); pH Urine 6.5 (5.0-9.0)
--- NOTE | 2024-01-17 10:27 | ED.ABDPAIN ---
HPI - Abdominal Pain General Chief Complaint: Abdominal Pain Stated Complaint: sent from for upper abdominal pain Time Seen by Provider: 01/17/24 09:12 Source: patient Mode of arrival: ambulatory Limitations: no limitations History of Present Illness HPI narrative: Pt is a 33-year-old female who presents to the ER with complaints of ribcage pain that started abruptly last night. She is 9 weeks, 4 days and has an OBGYN. Pt reports she has bilateral ribcage pain that is worse on the R side than L side. The pain is shooting and radiates to her back and R collarbone. She called her OBGYN and went to Urgent Care this morning, both who advised her to come in for evaluation in the ER. Pt reports she has not had any noticeable blood in her urine. She denies extremity swelling. Pt endorses pain with movement. She has not taken anything at home to relieve the pain. Pt denies chest pain, shortness of breath, or fevers. Related Data Home Medications Medication Instructions Recorded Confirmed omega 1-jvm-vws-fish oil 100 cap PO 12/28/23 12/28/23 mg-160 mg-1,000 mg capsule (Fish Oil) vitamin#30 30 mg iron-10 cap PO 12/28/23 12/28/23 mg iron-folic acid 1 mg-omg3 capsule Allergies Allergy/AdvReac Type Severity Reaction Status Date / Time No Known Allergies Allergy Verified 01/17/24 08:52 Review of Systems Review of Systems: All systems reviewed & are unremarkable except as noted in HPI and below PMFSH Past Medical History Medical History Encounter for supervision of normal first , first trimester Ovarian cyst Vaginal delivery Surgical History Surgical History H/O partial thyroidectomy Previous section x1 S/P thyroid biopsy Mclean teeth removed Family History Family History Father Family history of hypercholesterolemia Grandparent Family history of malignant neoplasm of breast Mother Family history of malignant neoplasm of breast in first degree relative Social History Social History Smoking status: Never smoker Alcohol intake: current Drinks per week: 1 Substance use: never Do You Feel Safe in your Home?: Yes Lack of Transportation: No Lack of Food: Never True Current Housing: I Have Housing Concerned About Future Housing: No Difficulty Paying Gas/Electric Bills: No Difficulty Paying for Meds: No Currently Unemployed: No Difficulty w/ Childcare or Family Care: No Living arrangements: with family Gender identity (if verbalized by the patient): Female Spiritual care concerns: No Exam Narrative: GENERAL: Well-appearing, well-nourished and in no acute distress.. CARDIAC: Regular rate and rhythm without murmurs, rubs or gallops. RESPIRATORY: Clear to auscultation bilaterally. No wheezes, rales or rhonchi. ABDOMEN: Soft, nontender, normoactive bowel sounds throughout, no guarding, no rebound. No masses appreciated. Unable to feel tip of uterus upon palpation. EXTREMITIES: Normal range of motion, no swelling, clubbing or other deformities. NEUROLOGICAL: Cranial nerves II through XII grossly intact, no focal deficits noted. Normal speech. SKIN: Warm, dry, normal color, no rashes, no lesions. Course Consultations Consultation #1: Dr. Venegas OBBEEN Date: 01/17/24 Time: 13:25 Vital Signs Vital signs: Vital Signs Temperature 36.6 C 01/17/24 08:58 Pulse Rate 82 01/17/24 08:58 Respiratory Rate 18 01/17/24 08:58 Blood Pressure 117/70 01/17/24 08:58 Pulse Oximetry 100 01/17/24 08:58 Oxygen Delivery Room Air 01/17/24 08:58 Temperature 36.6 C 01/17/24 09:16 Pulse Rate 86 01/17/24 12:43 Respiratory Rate 14 01/17/24 12:43 Blood Pressure 127/66 01/17/24 12:4
[2024-01-17] MEDS: SODIUM CHLORIDE 0.9% IV 1,000 ML 999 ML IV CONT (10:45)
[2024-01-17 10:51] LABS: Basophils Percent Auto 0.3 % (0.2-1.2); Eosinophils Percent Auto 0.1 % (0-4.4); Hematocrit 38.2 % (37.0-47.0); Hemoglobin 13.2 g/dL (12.0-15.0); Immature Granulocyte Absolute 0.08 K/mm3 (0.00-0.031); Immature Granulocyte Percent A 0.6 % (0-0.5); Lymphocytes Absolute Auto 1.18 K/mm3 (0.9-3.2); Lymphocytes Percent Auto 9.4 % (18.3-44.2); Mean Corpuscular HGB Conc 34.6 g/dl (32-36); Mean Corpuscular Hemoglobin 30.6 pg (26-34); Mean Corpuscular Volume 88.4 fl (80-100); Mean Platelet Volume 11.1 fl (7.4-10.4); Monocytes Absolute Auto 0.7 K/mm3 (0.1-0.6); Monocytes Percent Auto 5.9 % (2.6-8.5); Neutrophils Absolute Auto 10.5 K/mm3 (1.3-6.7); Neutrophils Percent Auto 83.7 % (45.5-73.1); Platelet Count Result 182 k/mm3 (150-375); Red Blood Count 4.32 M/mm3 (4.2-5.4); Red Cell Distribution Width 12.5 % (11.5-14.5); White Blood Count 12.5 K/mm3 (4.5-10.0)
[2024-01-17 11:29] LABS: Alanine Aminotransferase 12 U/L (6-35); Albumin Level 3.8 g/dL (3.5-5.1); Alkaline Phosphatase 81 U/L (38-126); Anion Gap 11 mmol/L (4-12); Aspartate Amino Transferase 22 U/L (14-36); Bilirubin,Total 0.6 mg/dL (0.2-1.3); Blood Urea Nitrogen 7 mg/dL (7-17); Calcium 8.7 mg/dL (8.4-10.2); Carbon Dioxide 21 mmol/L (22-30); Chloride 104 mmol/L (98-107); Estimated CRCL calculation 125 ml/min; Estimated Glomerular Filt Rate > 60; Glucose 89 mg/dL (65-110); Lipase 64 U/L (23-300); Potassium 3.9 mmol/L (3.4-5.0); Sodium 136 mmol/L (137-145)
[2024-01-17 12:43] VITALS: BP 127/66; PULSE 86; RESP 14; O2SAT 100
[2024-01-17 14:15] VITALS: TEMP 36.9
== END 2024-01-17 14:16 | disposition home or self-care (01) ==
PROVIDERS: Emergency Provider Registered Nurse
DX: O99.891 Other specified diseases and conditions complicating pregnancy (principal); M94.0 Chondrocostal junction syndrome [Tietze]; O23.41 Unspecified infection of urinary tract in pregnancy, first trimester; N39.0 Urinary tract infection, site not specified; Z3A.09 9 weeks gestation of pregnancy
CPT/HCPCS: 36415; 80053; 81001; 83690; 84443; 84702; 85025; 87086; 87088; 96360; 99283; J7030

== ENCOUNTER 2024-02-01 08:20 | Outpatient (CLI) | payer OTHER, SELFPAY ==
[2024-02-01 08:54] LABS: Add Urine Microscopic? YES; Appearance Urine Cloudy (Clear); Bacteria Urine 1+ /hpf; Bilirubin Urine Negative (Negative); Blood Urine Negative (Negative); Color Urine Yellow (Yellow); Glucose Urine UA Negative (Negative); Ketones Urine Negative (Negative); Leukocyte Esterase Ur 2+ LEU/UL (Negative); Nitrate Urine Negative (Negative); Non Pathogenic Casts 0-2; Protein Urine Negative (Negative); RBC Urine 0-2 /hpf (0-2); Specific Grav Ur 1.008 (1.001-1.035); Squamous Epithelial Cell Urine Moderate /hpf (Few); Urobilinogen Urine 0.2 mg/dL (<2.0)
[2024-02-01 09:11] LABS: Basophils Absolute Auto 0.1 K/mm3 (0.0-0.1); Basophils Percent Auto 0.4 % (0.2-1.2); Eosinophils Percent Auto 0.3 % (0-4.4); Hematocrit 39.4 % (37.0-47.0); Immature Granulocyte Absolute 0.14 K/mm3 (0.00-0.031); Lymphocytes Absolute Auto 2.48 K/mm3 (0.9-3.2); Lymphocytes Percent Auto 16.9 % (18.3-44.2); Mean Corpuscular Hemoglobin 29.7 pg (26-34); Mean Platelet Volume 11.7 fl (7.4-10.4); Monocytes Percent Auto 6.6 % (2.6-8.5); Neutrophils Percent Auto 74.8 % (45.5-73.1); Platelet Count Result 197 k/mm3 (150-375); Red Blood Count 4.38 M/mm3 (4.2-5.4); Red Cell Distribution Width 12.8 % (11.5-14.5); White Blood Count 14.7 K/mm3 (4.5-10.0)
[2024-02-01 09:39] LABS: HIV 1/2 Ab P24 Ag Result Negative (Negative)
[2024-02-01 09:44] LABS: Hepatitis B Surface Antigen Negative (Negative); Rubella IgG Antibody 61.4 IU/ML
[2024-02-01 09:55] LABS: Hepatitis C Virus Antibody Negative (Negative)
[2024-02-01 16:36] LABS: Rapid Plasma Reagin Non-Reactive (NonReactive)
[2024-02-03 08:02] LABS: Hematocrit 40.2 % (35.0-45.0); MCV 92.6 fL (80.0-100.0); RDW 12.8 % (11.0-15.0); Red Blood Cell Count 4.34 Million/uL (3.80-5.10)
[2024-02-05 15:03] LABS: Varicella IgG Antibody <1.00 S/CO
== END 2024-02-01 08:21 | disposition home or self-care (01) ==
LOC: ANHLAB 08:21
PROVIDERS: Visit Provider Obstetrics & Gynecology
DX: Z34.90 Encounter for supervision of normal pregnancy, unspecified, unspecified trimester (principal); Z3A.00 Weeks of gestation of pregnancy not specified
CPT/HCPCS: 36415; 81001; 83021; 84443; 85025; 86592; 86703; 86762; 86787; 86803; 86850; 86900; 86901; 87086; 87340; G0432

== ENCOUNTER 2024-05-28 07:53 | Outpatient (CLI) | payer OTHER, SELFPAY ==
[2024-05-28 12:39] LABS: Basophils Absolute Auto 0.1 K/mm3 (0.0-0.1); Basophils Percent Auto 0.4 % (0.2-1.2); Eosinophils Percent Auto 0.1 % (0-4.4); Hemoglobin 11.8 g/dL (12.0-15.0); Immature Granulocyte Absolute 0.17 K/mm3 (0.00-0.031); Immature Granulocyte Percent A 1.1 % (0-0.5); Lymphocytes Absolute Auto 2.48 K/mm3 (0.9-3.2); Lymphocytes Percent Auto 16.4 % (18.3-44.2); Mean Corpuscular HGB Conc 32.8 g/dl (32-36); Mean Corpuscular Hemoglobin 30.6 pg (26-34); Mean Corpuscular Volume 93.3 fl (80-100); Mean Platelet Volume 11.5 fl (7.4-10.4); Monocytes Absolute Auto 0.9 K/mm3 (0.1-0.6); Monocytes Percent Auto 5.6 % (2.6-8.5); Neutrophils Absolute Auto 11.5 K/mm3 (1.3-6.7); Neutrophils Percent Auto 76.4 % (45.5-73.1); Platelet Count Result 182 k/mm3 (150-375); Red Blood Count 3.86 M/mm3 (4.2-5.4); Red Cell Distribution Width 12.6 % (11.5-14.5); White Blood Count 15.1 K/mm3 (4.5-10.0)
[2024-05-28 13:09] LABS: Glucose 1 Hour PP 50gm Dose 94 mg/dL
== END 2024-05-28 07:54 | disposition home or self-care (01) ==
LOC: ANHGOSHLAB 07:55
PROVIDERS: Visit Provider Obstetrics & Gynecology
DX: Z34.90 Encounter for supervision of normal pregnancy, unspecified, unspecified trimester (principal)
CPT/HCPCS: 36415; 82947; 84443; 85025; 85461; 86850; 86900; 86901; 90384; J2790

== ENCOUNTER 2024-05-30 09:15 | Outpatient (RCR) | payer OTHER, SELFPAY ==
--- NOTE | ~2024-05-30 | US_ITS ---
EXAMINATION: US OB limited DATE: 05/30/2024 12:04 INDICATION: Spotting in . Third trimester. TECHNIQUE: Real-time ultrasound of the pelvis was performed. COMPARISON: Ultrasound 01/04/2024 FINDINGS: There is a single fetus in vertex presentation. The placenta is posterior. heart rate is 155 b eats per minute (bpm). The amniotic fluid volume is subjectively normal. The deepest vertical pocket is 4.5 cm. The cervical length is 4.3 cm on transabdominal images, which is normal. IMPRESSION: 1. Single living fetus in vertex presentation. 2. Normal placenta. Reviewed, dictated and finalized at location A. TER BARREL
--- NOTE | 2024-05-30 09:15 | PC.NURSE ---
Called Dr. Foley with pt status. Complaining of spotting noted last night x1, with no further bleeding. Orders received for ultrasound and NST.
[2024-05-30 10:49] VITALS: BP 117/62; PULSE 80
--- NOTE | 2024-05-30 12:18 | PC.NURSE ---
Called Dr. Foley with pt status. Informed of spotting noted when wiping last night. She had another episode while here, then just some residual blood with the last wipe. Contractions noted q 2-3 min on admission that decreased to mostly uterine irritability with PO hydration. Ultrasound report given. Informed of pt stating that she felt like she had a yeast infection. September D/C home with prescription for Diflucan 150mg.
== END 2024-08-28 23:59 | disposition home or self-care (01) ==
LOC: ANHOBOP 09:15
PROVIDERS: Visit Provider Obstetrics & Gynecology
DX: O26.853 Spotting complicating pregnancy, third trimester (principal); Z3A.00 Weeks of gestation of pregnancy not specified
CPT/HCPCS: 59025; 76815

== ENCOUNTER 2024-06-10 18:03 | Observation (INO) | payer OTHER, SELFPAY ==
[2024-06-10] VITALS (26 sets, daily range): BP systolic 118–126; BP diastolic 55–76; PULSE 25–135; TEMP 37.2; O2SAT 86–100; BMI 30.4
--- NOTE | 2024-06-10 18:03 | PC.NURSE ---
Pt arrives to unit with vaginal bleeding.
--- NOTE | 2024-06-10 18:27 | OBADM ---
This patient, Ariella Anderson, admitted to the OB room OB Post 117 for observation. Patient/family oriented to hospital policies and general routines including ID bracelet, bed and alarms, visiting hours, pain management, procedures, bathroom and other care routines, personal items, smoking policy, room service/diet, and visiting hours. Patient/Family are encouraged to report perceived risks to care and to ask questions if they do not understand what they are told or what they should do.
--- NOTE | 2024-06-10 18:47 | PC.NURSE ---
Called Dr. Foley, update on pt, contractions, vaginal bleeding, and heart rate. Orders received to administer two doses of terbutaline 0.25 mg as needed and PO hydrate.
[2024-06-10 18:56] LABS: Add Urine Microscopic? YES; Appearance Urine Clear (Clear); Bacteria Urine None Seen /hpf; Bilirubin Urine Negative (Negative); Blood Urine 1+ (Negative); Color Urine Yellow (Yellow); Glucose Urine UA Negative (Negative); Ketones Urine Negative (Negative); Leukocyte Esterase Ur Negative LEU/UL (Negative); Nitrate Urine Negative (Negative); Non Pathogenic Casts 0-2; Protein Urine Negative (Negative); RBC Urine 0-2 /hpf (0-2); Squamous Epithelial Cell Urine Occasional /hpf (Few); Urobilinogen Urine 0.2 mg/dL (<2.0); WBC Urine 0-5 /hpf (0-3); pH Urine 5.5 (5.0-9.0)
[2024-06-10] MEDS: TERBUTALINE SULFATE 1 MG/ML VIAL 0.25 MG SUB-Q ×2 (19:02→19:35)
--- NOTE | 2024-06-10 20:09 | PC.NURSE ---
Called Dr. Foley, update on pt and contractions. Orders received to discharge pt with instructions to keep next scheduled appointment and when to return to the unit.
--- NOTE | 2024-06-10 20:49 | PC.NURSE ---
Pt discharged with instructions to keep next scheduled appointment and when to return to the unit, pt verbalizes understanding.
--- NOTE | 2024-06-11 09:42 | PM.OBTRLD ---
OB - Triage/Final Diagnosis Visit Information Reason for evaluation: threatened labor ( and spotting) Comments/Additional reasons for admission: I have assessed the risk for this patient, Ariella Cantu Anderson, and determined that she would benefit from observation care. Evaluation Laboratory results: Laboratory Tests 06/10/24 18:33 Urine Color Yellow Urine Appearance Clear Urine pH 5.5 Ur Specific [place] 1.020 Urine Protein Negative Urine Glucose (UA) Negative Urine Ketones Negative Ur Blood (Man) 1+ H Urine Nitrate Negative Urine Bilirubin Negative Urine Urobilinogen 0.2 Leukocyte Esterase Rfl Negative Urine RBC 0-2 Urine WBC 0-5 Ur Squamous Epith Cells Occasional Urine Bacteria None seen Urine Casts 0-2 Vital signs: Vital Signs - 24 hr 06/10/24 18:25 06/10/24 18:26 06/10/24 18:30 Temperature Pulse Rate Blood Pressure Pulse Oximetry 100 100 Oxygen Delivery Room Air 06/10/24 18:33 06/10/24 18:35 06/10/24 18:40 Temperature Pulse Rate 91 Blood Pressure 118/55 L Pulse Oximetry 100 100 Oxygen Delivery 06/10/24 18:45 06/10/24 18:50 06/10/24 18:55 Temperature Pulse Rate Blood Pressure Pulse Oximetry 100 100 100 Oxygen Delivery 06/10/24 18:59 06/10/24 19:04 06/10/24 19:09 Temperature Pulse Rate Blood Pressure Pulse Oximetry 100 100 100 Oxygen Delivery 06/10/24 19:14 06/10/24 19:20 06/10/24 19:24 Temperature Pulse Rate Blood Pressure Pulse Oximetry 100 100 100 Oxygen Delivery 06/10/24 19:28 06/10/24 19:29 06/10/24 19:31 Temperature Pulse Rate 107 H 113 H Blood Pressure 123/63 126/76 Pulse Oximetry 100 Oxygen Delivery 06/10/24 19:34 06/10/24 19:37 06/10/24 19:39 Temperature 98.9 F Pulse Rate Blood Pressure Pulse Oximetry 86 L 100 Oxygen Delivery 06/10/24 19:44 06/10/24 19:49 06/10/24 19:54 Temperature Pulse Rate Blood Pressure Pulse Oximetry 100 100 100 Oxygen Delivery 06/10/24 20:02 06/10/24 20:07 06/10/24 20:12 Temperature Pulse Rate Blood Pressure Pulse Oximetry 100 100 100 Oxygen Delivery
--- OUTSIDE RECORDS SUMMARY | 2024-06-12 20:17 | XMS_ITS | Clinical Summary ---
Author Organization [facility] Address [address] [place] [address] Care Team Providers Care Halfway House Counselor Name Role Phone Unavailable Primary Care Provider Unavailabl e Source Comments [facility],non-owned Affiliates and Associated Physician Practices is amultiple site organization consisting of ambulatory clinics and hospital sitesin [place], [place], [place] and [place]. This disclosure is being madepursuant to the Care Everywhere program and may not contain all information available regarding this patient. Last updated 18.[facility] Allergies No known active allergies Immunizations Name Administration Dates Next Due TDAP (7yrs+) 12/05/2019 Social History Tobacco Use Types Packs/Day Years Used Date Smoking Tobacco: Never Assessed Sex and Gender Information Value Date Recorded Sex Assigned at Not on file Gender Identity Not on file Sexual Orientation Not on file Plan of Treatment Health Maintenance Due Date Last Done Comments PAP SMEAR 1990 HIV SCREENING 2005 HEPATITIS C SCREENING 05/26/2008 HEPATITIS B VACCINE (1 of 3 - 19+ 3-dose series) 2009 COVID-19 VACCINE (2023-2 5 season) 2024 INFLUENZA VACCINE (#1) 2024 02/27/2019 DEPRESSION SCREENING 05/21/2024 DTAP/TDAP/TD VACCINES (2 - T d or Tdap) 12/04/2029 12/05/2019 ZOSTER VACCINE (1 of 2) 2040 HIB VACCINE Aged Out No longer eligi ble based on patient's age to complete this topic HPV VACCINE Aged Out No longer eligi ble based on patient's age to complete this topic MENINGOCOCCAL (Group B) VACCINE Aged Out No longer eligible based on patient's age to complete this topic MENINGOCOCCAL VACCINE Aged Out No candido nancy eligible based on patient's age to complete this topic PNEUMOCOCCAL VACCINE Aged Out No long er eligible based on patient's age to complete this topic ARIELLA ANDERSON Personal/Family [address] [place] [address] ARIELLA ANDERSON Personal/Family [address] [place] [address] ARIELLA ANDERSON Personal/Family [address] [place] [address]
--- OUTSIDE RECORDS SUMMARY | 2024-06-12 20:17 | XMS_ITS | Clinical Summary ---
Author Organization [facility] [address] Address [address] [place] [id number] Care Team Providers Care Production Truck Driver Name Role Phone Unknown, Notinfile Primary Care Provider Unavail able Allergies No known active allergies Medications DAILY MULTI-VITAMIN ORAL A ctive Active Problems Comments Yes No known active problems Social History Tobacco Use Types Packs/Day Years Used Date Smoking Tobacco: Never Assessed Comments Yes Sex and Gender Information Value Date Recorded Sex Assigned at Not on file Legal Sex Female 8:00 AM CDT Gender Identity Not on file Sexual Orientation Not on file Obstetrics History Para Term AB IAB SAB Ectopic Multiple Livin g Live Births 1 Date Outcome GA Total Labor Labor/2nd/3rd Weight Sex Type Anes PTL Stpeh A1 A5 Name Clin Current Last Filed Vital Signs Vital Sign Reading Time Taken Comments Blood Pressure 114/76 01/17/2024 8:12 AM CDT Pulse 90 01/17/2024 8:12 AM CDT Temperature 37 ??C (98.6 ??F) 01/17/2024 8:12 AM CDT Respiratory Rate 20 01/17/2024 8:12 AM CDT Oxygen Saturation 100% 01/17/2024 8:12 AM CDT Inhaled Oxygen Concentration - - Weight 76.7 kg (169 lb 3.2 oz) 01/17/2024 8:12 A M CDT Height 167.6 cm (5' 6 ) 01/17/2024 8:12 AM CDT Body Mass Index 27.31 01/17/2024 8:12 AM CDT Plan of Treatment Health Maintenance Due Date Last Done Comments Cervical Cancer Screening 1990 Depression Screening 1990 Hepatitis C Screening 1990 Varicella Vaccines (1 of 2 - 13+ 2-dose series) 2003 Hepatitis B Screening 2008 Regular Well Visit/Exam 18-64 2008 Influenza Vaccine (#1) 2024 02/27/2019 DTaP/Tdap/Td Vaccine (3 - Td or Tdap) 10/14/2031 10/13/2021, 12/05/2019 HPV Vaccines Aged Out No longer eligi ble based on patient's age to complete this topic Pneumococcal vaccine <65 Aged Out No longer eligible based on patient's age to complete this topic Insurance [facility] H[facility] Address: [facility] [address] [place] [address] Care Teams Production Truck Driver Relationship Specialty Start Date End Date Unknown, Notinfile PCP - General 01/17/24
--- OUTSIDE RECORDS SUMMARY | 2024-06-12 20:17 | XMS_ITS | Patient Health Summary ---
Author Organization [facility] Address [address] [place] [address] Care Team Providers Care Commuter Train Operator Name Role Phone Unavailable Primary Care Provider Unavailabl e Note from [facility],non-owned Affiliates and Associated Physician Practices is amultiple site organization consisting of ambulatory clinics and hospital sitesin [place], [place] and [place]. This disclosure is being madepursuant to the Care Everywhere program and may not contain all information available regarding this patient. Last updated 18.[facility] Allergies No known active allergies Immunizations * TDAP (7yrs+)(Given 12/05/2019) Social History Tobacco Use Types Packs/Day Years Used Date Smoking Tobacco: Never Assessed Sex and Gender Information Value Date Recorded Sex Assigned at Not on file Gender Identity Not on file Sexual Orientation Not on file
--- OUTSIDE RECORDS SUMMARY | 2024-06-12 20:17 | XMS_ITS | Referral Summary ---
Author Organization [address] Address [address] [place] [id number] Care Team Providers Care Filteration Operator Name Role Phone Unknown, Notinfile Primary Care [...] on file Sexual Orientation Not on file Last Filed Vital Signs Vital Sign Reading [...] 01/17/2024 8:12 AM CDT Plan of Treatment Not on file Insurance [facility] H[facility]/PPO Address: [facility] [address] [place] [address] Care Teams Filteration Operator Relationship Specialty Start Date End Date Unknown, Notinfile PCP - General 01/17/24
--- OUTSIDE RECORDS SUMMARY | 2024-06-12 20:17 | XMS_ITS | Clinical Summary ---
Author Organization [facility] 2022 [address] [place] [phone] Phone Care Team Providers Care Retail Account Executive Name Role Phone Unavailable Primary Care Provider Unavailabl e Encounters Date Type Department Care Team Description 06/11/2024 External Device Data STL ABSTRACTION Provider, Abstract 04/08/2024 External Device Data STL ABSTRACTION Provider, Abstract 04/07/2024 1:51 PM CRIMINALIST - 04/07/2024 11:59 PM CRIMINALIST Hospital Encounter [facility] Fabian Smith [address] [place] [phone] Grant Stoddard MD Discharge Disposition: Home or Self Care from Last 3 Months Social History Tobacco Use Types Packs/Day Years Used Date Smoking Tobacco: Never Assessed Comments Unknown Sex and Gender Information Value Date Recorded Sex Assigned at Not on file Legal Sex Female 8:48 AM CRIMINALIST Gender Identity Not on file Sexual Orientation Not on file Plan of Treatment Health Maintenance Due Date Last Done Comments HEPATITIS B VACCINES (1 of 3 - 19+ 3-dose series) 2009 CERVICAL CANCER SCREENING 2020 INFLUENZA VACCINE (#1) 2023 02/27/2019 DTAP/TDAP/TD VACCINES (2 - T d or Tdap) 12/04/2029 12/05/2019 HPV VACCINES Aged Out No longer eligi ble based on patient's age to complete this topic PNEUMOCOCCAL VACCINE 0-64 YEARS Aged Out No longer eligible based on patient's age to complete this topic Procedures Procedure Name Priority Date/Time Associated Diagnosis Comments US OB 14+ WKS SINGLE GEST Routine 04/07/2024 3:09 PM CRIMINALIST screening for malformation using ultrasonics from Last 3 Months Results * US OB 14+ WKS SINGLE GEST (04/07/2024 3:09 PM CRIMINALIST) Anatomical Region Laterality Modality Pelvis Ultrasound 04/07/2024 2:33 PM CRIMINALIST Narrative 04/07/2024 3:33 PM CRIMINALIST STL BASIC ----- Pat. Name: ARIELLA ANDERSON Study Date: 04/07/2024 2:33pm Pat. NO: [id number] Referring ??MD: GRANT STODDARD MD Site: [facility] Operator: Nara Newton RDMS : 1990 Age: 33 ----- INDICATION ----- Anatomy Survey ? patient states low risk NIPT Maternal Care for Low Transverse Scar from ? x 1 x 1 Previous Delivery (Previous ) CODING ----- Diagnoses ? Z3A.21: Weeks of gestation ?O34.211: Maternal care for low transverse scar from previous delivery ?Z36.3: Encounter for screening for malformations Procedures ?[id number]: Ultrasound, uterus, real time with image documentation, and maternal evaluation, ?after first trimester (> or = 14 weeks 0 days), transabdominal approach; single or first gestation HISTORY ----- OB History ? 2. Para 1 MATERNAL ASSESSMENT ----- Physical Exam ? Weight 82 kg. BMI 29.05 kg/m?? METHOD ----- Transabdominal ultrasound examination ----- Conti . Number of fetuses: 1 DATING ----- Cycle: regular cycle Method of dating: based on stated BALDOMERO GA by prior assessment 21 w + 3 d BALDOMERO by prior assessment: 08/15/2024 Ultrasound examination on: 04/07/2024 GA by U/S based upon: AC, BPD, EFW, Femur, HC GA by U/S 21 w + 0 d BALDOMERO by U/S: 08/18/2024 Assigned: based on stated BALDOMERO, selected on 04/07/2024 Assigned GA 21 w + 3 d Assigned BALDOMERO: 08/15/2024 BIOMETRY ----- BPD ?47.1 ? mm ? 20w 2d ? 9% ?Hadlock OFD ?65.5 ? mm ? 22w 1d ? 74% ?Dennis ? 181.6 ?mm ? 20w 4d ? 10% ?Hadlock Cerebellum tr ?22.7 ? mm ? 22w 0d ? 59% ?Mckeon Nuchal fold ?3.6 ?mm AC ? 162.4 ?mm ? 21w 2d ? 39% ?Hadlock Femur ?36.0 ? mm ? 21w 3d ? 40% ?Hadlock Humerus ?33.5 ? mm ? 21w 3d ? 44% ?Dennis HC / AC ?1.12 ?25% ? Nicolaides Weight Calculation: EFW ?409 ? g ?21w 1d ?34% ?Hadlock EFW (lb,oz) ?0 lb 14 ? oz EFW by ?Hadlock ([id number]) Head / Face / Neck Biometry: Vmware Consultant ? 4.4 ? mm CM ? 5.8 ? mm ? 65% ?Nicolaides Outer IOD ? 31.6 ? mm ? 20w 2d ?8% ? Dennis Extremities / Bony Struc Biometry: FL / BPD ?0.76 FL / HC ? 0.20 FL / AC ? 0.22 GENERAL EVALUATION ----- Cardiac activity present. FHR 157 bpm. movements: visualized. Presentation: cephalic Placenta: Placental site: posterior Umbilical cord: Cord vessels: 3 vessel cord. Insertion site: placental insertion: normal Amniotic fluid: Amount of AF: normal amount. MVP 4.1 cm ANATOMY ----- The following structures appear normal: Head / Neck ? Cranium. Lateral ventricles. Choroid plexus. Midline falx. Cavum septi pellucidi. Cerebellum. Cisterna ?magna. ?Nuchal fold. Face ?Lips. Profile. Nose. Palate. Orbits. Heart / Thorax ?4-chamber view. RVOT view. LVOT view. 3-vessel view. 0-eizdag-ksynase view. Situs. Aortic arch view. ?Ductal arch view. Superior vena cava. Inferior vena cava. High short axis view. Cardiac rhythm. ?Diaphragm. Abdomen ? Abdominal wall. Stomach. Kidneys. Bladder. Spine ? Cervical spine. Thoracic spine. Lumbar spine. Sacral spine. Extremities / ? Arms. Right hand. Left hand. Legs. Right foot. Left foot. Skeleton MATERNAL STRUCTURES ----- Cervix ?Visualized ?Approach - Transabdominal: Cervical length 51.5 mm Right Ovary ? Normal ?Size 24 mm x 20 mm x 13 mm. Vol 3.4 cm?? Left Ovary ?Normal ?Size 31 mm x 22 mm x 11 mm. Vol 3.8 cm?? GROWTH OVERVIEW ----- Exam date ? GA ?BPD (mm) ?HC (mm) ?AC (mm) ? FL (mm) ?HL (mm) ?EFW (g) 04/07/2024 ?21w 3d ?47.1 ?9% ?181.6 ? 10% ?162.4 ?39% ?36.0 ?40% ?33.5 ?44% ?409 ?34% COMMENT ----- Patient's name and date of were confirmed by the pick pack worker prior to the exam IMPRESSION ----- Viable at 21 weeks gestation. Patient had low risk NIPT. The biometry is consistent with the established gestational age No structural malformations were identified Amniotic fluid volume is normal Posterior placenta with normal placental cord insertion appreciated; placenta is not low-lying Normal cervical length based upon a transabdominal ultrasound assessment Ultrasound cannot identify all structural malformations. Recommend a follow-up ultrasound at 32 weeks gestation to assess growth and development Procedure Note Romulo Ni MD - 04/07/2024 STL BASIC ----- Pat. Name:Carolyn ANDERSON Date:04/07/2024 2:33pm Pat. NO: [id number] MD:GRANT STODDARD [facility]Nara Newton RDMS :1990Age:33 ----- INDICATION ----- Anatomy Survey patient states lowrisk NIPT Maternal Care for Low Transverse Scar from x 1 x 1 Previous Delivery (Previous ) CODING ----- Diagnoses Z3A.21: Weeks of gestation O34.211: Maternal care for low transverse scarfrom previous delivery Z36.3: Encounter for screening formalformations Procedures [id number]: Ultrasound, uterus, real time withimage documentation, and maternal evaluation, after first trimester (> or = 14 weeks 0 days),transabdominal approach; single or first gestation HISTORY ----- OB History 2. Para 1 MATERNAL ASSESSMENT ----- Physical Exam Weight 82 kg. BMI 29.05 kg/m?? METHOD ----- Transabdominal ultrasound examination ----- Conti . Number of fetuses: 1 DATING ----- Cycle:regular cycle Method of dating:based on stated BALDOMERO GA by prior [id number] w + 3 d BALDOMERO by prior assessment:08/15/2024 Ultrasound examination on:04/07/2024 GA by U/S based upon:AC, BPD, EFW, Femur, HC GA by U/S21 w + 0 d BALDOMERO by U/S:08/18/2024 Assigned:based on stated BALDOMERO, selected on 04/07/2024 Assigned GA21 w + 3 d Assigned BALDOMERO:08/15/2024 BIOMETRY ----- BPD 47.1 mm 20w 2d9% Hadlock OFD 65.5 mm 22w 1d74% Dennis HC 181.6 mm 20w 4d10% Hadlock Cerebellum tr 22.7 mm 22w 0d59% Mckeon Nuchal fold 3.6 mm AC 162.4 mm 21w 2d39% Hadlock Femur 36.0 mm 21w 3d40% Hadlock Humerus 33.5 mm 21w 3d44% Dennis HC / AC 1.12 25%Nicolaides Weight Calculation: EFW 409 g 21w 1d 34%Hadlock EFW (lb,oz) 0 lb 14 oz EFW by Hadlock ([id number]-FL) Head / Face / Neck Biometry: Vmware Consultant 4.4 mm CM 5.8 mm 65%Nicolaides Outer IOD 31.6 mm 20w 2d 8%Dennis Extremities / Bony Struc Biometry: FL / BPD 0.76 FL / HC 0.20 FL / AC 0.22 GENERAL EVALUATION ----- Cardiac activity present. FHR 157 bpm. movements: visualized.Presentation: cephalic Placenta: Placental site: posterior Umbilical cord: Cord vessels: 3 vessel cord. Insertion site: placentalinsertion: normal Amniotic fluid: Amount of AF: normal amount. MVP 4.1 cm ANATOMY ----- The following structures appear normal: Head / Neck Cranium. Lateral ventricles. Choroid plexus.Midline falx. Cavum septi pellucidi. Cerebellum. Cisterna magna. Nuchal fold. Face Lips. Profile. Nose. Palate. Orbits. Heart / Thorax 4-chamber view. RVOT view. LVOT view. 3-vesselview. 7-aghiza-drusaeh view. Situs. Aortic arch view. Ductal arch view. Superior vena cava. Inferiorvena cava. High short axis view. Cardiac rhythm. Diaphragm. Abdomen Abdominal wall. Stomach. Kidneys. Bladder. Spine Cervical spine. Thoracic spine. Lumbar spine.Sacral spine. Extremities / Arms. Right hand. Left hand. Legs. Right foot.Left foot. Skeleton MATERNAL STRUCTURES ----- Cervix Visualized Approach - Transabdominal: Cervical length 51.5mm Right Ovary Normal Size 24 mm x 20 mm x 13 mm. Vol 3.4 cm?? Left Ovary Normal Size 31 mm x 22 mm x 11 mm. Vol 3.8 cm?? GROWTH OVERVIEW ----- Exam date GA BPD (mm) HC (mm) AC (mm) FL(mm) HL (mm) EFW (g) 04/07/2024 21w 3d 47.1 9% 181.6 10% 162.4 39%36.0 40% 33.5 44% 409 34% COMMENT ----- Patient's name and date of were confirmed by the pick pack worker priorto the exam IMPRESSION ----- Viable at 21 weeks gestation. Patient had low risk NIPT. The biometry is consistent with the established gestational age No structural malformations were identified Amniotic fluid volume is normal Posterior placenta with normal placental cord insertion appreciated;placenta is not low-lying Normal cervical length based upon a transabdominal ultrasound assessment Ultrasound cannot identify all structural malformations. Recommend a follow-up ultrasound at 32 weeks gestation to assess fetalgrowth and development us Grant Stoddard MD ORDERABLES Final Result from Last [address] [facility] [place] [address] [facility] PPO [id number]
--- OUTSIDE RECORDS SUMMARY | 2024-06-12 20:17 | XMS_ITS | Referral Summary ---
Author Organization [facility] Address [address] [place] [address] Care Team Providers Care Plasma Processing Centrifuge Operator Name Role Phone Unavailable Primary Care Provider Unavailabl e Source Comments [facility],non-owned Affiliates and Associated Physician Practices is amultiple site organization consisting of ambulatory clinics and hospital sitesin [place], [place], [place] and [place]. This disclosure is being madepursuant to the Care Everywhere program and may not contain all information available regarding this patient. Last updated 18.[facility] [email or web address] Allergies No known active allergies Immunizations Name Administration Dates Next Due TDAP (7yrs+) 12/05/2019 Social History Tobacco Use Types Packs/Day Years Used Date Smoking Tobacco: Never Assessed Sex and Gender Information Value Date Recorded Sex Assigned at Not on file Gender Identity Not on file Sexual Orientation Not on file Plan of Treatment Not on file ARIELLA ANDERSON Personal/Family [facility] [place] [address] ARIELLA ANDERSON Personal/Family [address] [place], [place] [address] [address] ARIELLA ANDERSON Personal/Family [address] [place], [place] [address] [address]
== END 2024-06-10 20:49 | disposition home or self-care (01) ==
PROVIDERS: Admitting Provider Obstetrics & Gynecology; Visit Provider Obstetrics & Gynecology
DX: O47.03 False labor before 37 completed weeks of gestation, third trimester (principal); O26.853 Spotting complicating pregnancy, third trimester; Z3A.30 30 weeks gestation of pregnancy
CPT/HCPCS: 81001; 96372; G0378; G0379; J3105

== ENCOUNTER 2024-06-13 22:05 | Observation (INO) | payer OTHER, SELFPAY ==
[2024-06-13] VITALS (12 sets, daily range): BP systolic 101–114; BP diastolic 62–72; PULSE 75–90; O2SAT 98–100; BMI 30.4
--- OUTSIDE RECORDS SUMMARY | 2024-06-13 22:14 | XMS_ITS | Clinical Summary ---
Author Organization [facility] Address [address] [place] [address] Care Team Providers Care Tube Drawer Name Role Phone Unavailable Primary Care Provider Unavailabl e Source Comments [facility],non-owned Affiliates and Associated Physician Practices is amultiple site organization consisting of ambulatory clinics and hospital sitesin [place], [place], [place] and [place]. This disclosure is being madepursuant to the Care Everywhere program and may not contain all information available regarding this patient. Last updated 18.[facility] [employer] Allergies No known active allergies Immunizations Name [...] this topic ARIELLA ANDERSON Personal/Family [address] [place] [address] ARIELLA ANDERSON Personal/Family [address] [place] [address] ARIELLA ANDERSON Personal/Family [address] [place] [address]
--- OUTSIDE RECORDS SUMMARY | 2024-06-13 22:14 | XMS_ITS | Referral Summary ---
Author Organization [facility] Address [address] [place] [address] Care Team Providers Care Geospatial Technologist Name Role Phone Unavailable Primary Care Provider Unavailabl e Source Comments [facility],non-owned Affiliates and Associated Physician Practices is amultiple site organization consisting of ambulatory clinics and hospital sitesin [place], [place] and [place]. This disclosure is being madepursuant to the Care Everywhere program and may not contain all information available regarding this patient. Last updated 18.[facility] [employer] Allergies No known active allergies Immunizations Name Administration Dates Next Due TDAP (7yrs+) 12/05/2019 Social History Tobacco Use Types Packs/Day Years Used Date Smoking Tobacco: Never Assessed Sex and Gender Information Value Date Recorded Sex Assigned at Not on file Gender Identity Not on file Sexual Orientation Not on file Plan of Treatment Not on file ARIELLA ANDERSON Personal/Family [facility] [place] [address] ARIELLA ANDERSON Personal/Family [address] [place], [place] [address] [address] ARIELLA ANDERSON Personal/Family [address] [place], [place] [address] [address]
--- OUTSIDE RECORDS SUMMARY | 2024-06-13 22:15 | XMS_ITS | Clinical Summary ---
Author Organization [facility] [place] [address] [place] Address [address] [place] [phone] Care Team Providers Care Burner Shaft Name Role Phone Unknown, Notinfile Primary Care [...] Labor Labor/2nd/3rd Weight Sex Type Anes PTL Steph A1 A5 Name Clin Current Last Filed [...] patient's age to complete this topic Insurance [facility] H[facility]/PPO Address: [facility] [address] [place] [address] Care Teams Burner Shaft Relationship Specialty Start Date End Date Unknown, Notinfile PCP - General 01/17/24
--- OUTSIDE RECORDS SUMMARY | 2024-06-13 22:15 | XMS_ITS | Data Portability ---
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 She voiced understanding of plan and agrees She will e-mail me her recent lab results on the portal [employer] Not available 02/16/2023 12:34:42 Plan of Treatment Reminders Order Date Submit Date Provider Last Modified By Organization Details Last Modified Time Details Appointments None recorded. Lab None recorded. Referral general surgeon referral - discuss umb hernia repair- now vs after next 2022 023 MICAELA Mendoza MD, [address] [place] [address] [address], [address], [place], [address], 3 13:31:06 Procedures None recorded. Surgeries None recorded. Imaging None recorded. Medication Orders None recorded. Patient TargetsNo targets recorded. Patient InstructionsNo instructions recorded. Reason for Referral General Surgeon Referral for Umbilical hernia discuss umb hernia repair- now vs after next Referring Physician: Marizol Stern, Internal Medicine, Encounter Date: 02/16/2023 Problems Name Problem SNOMED Code Status Onset Date Resolution Date Notes Provider Name and Address Organization Details Recorded Time Umbilical hernia 012157498 Active 023 GALI Mota [address] [facility], [address], [place], [address] [facility] 3 11:44:16 Cyst of thyroid 57326470 Active 023 GALI Mota [address] [facility], [address], [place], [address], [facility] [email or web address] [facility] 3 12:32:58 Diastasis recti 45605386 Active 023 Marizol Stern, [facility] [address], [address], [place], [address], [facility] [email or web address] [facility] 3 12:34:53 Problem Notes None recorded. Procedures Surgical History Date Name Laterality Status Provider Name and Address Organization Details Recorded Time 0 puncture and aspiration of cyst completed Not Available [facility] 07/19/2022 04:42:08 9 puncture and aspiration of cyst completed Not Available [facility] 07/19/2022 04:42:08 section completed MYNOR Samuels [facility] [employer] [facility] 02/16/2023 11:39:40 Imaging Results None recorded. Procedure Notes None recorded. Medical Equipment None Reported. Allergies No known drug allergies Medications Name Sig Start Date Stop Date Status Note LastModified by Organization Details LastModified Time amoxicillin 600 mg-potassium clavulanate 42.9 mg/5 mL oral suspension SHAKE LIQUID WELL AND TAKE 7.3ML BY MOUTH TWICE DAILY X 5 DAYS active Not Available Not Available No t Available amoxicillin 400 mg/5 mL oral suspension SHAKE LQ AND TK 12 ML PO Q 12 H FOR 10 DAYS. 07/20 completed Not Available Not Available Not Available hydrocodone 7.5 mg-acetamino phen 325 mg/15 mL oral solution TAKE 15ML BY MOUTH EVERY 6 HOURS NEEDED active Not Available Not Available No t Available Daily Multi-Vitami n active Not Available Not Available Not Available Se-Chinyere 19 Chewable 29 mg iron-1 mg tablet CHEW AND SWALLOW ONE TABLET DAILY 02/16 completed Not Available Not Available Not Available oseltamivir 6 mg/mL oral suspension Take 12.5 mL twice a day by oral route for 5 days. active Not Available Not Available No t Available norethindron e 1 mg-e. estradiol 20 mcg (24)-iron 75 mg (4) chew tablet ASSOCIATE PROFESSOR OF LAW 1 T PO QD 07/20 completed Not Available Not Available Not Available Vitals Date Recorded Body weight Body mass index (BMI) Body height Body temperature Heart rate Systolic blood pressure Diastolic blood pressure Provider Name and Address Organization Details Last Updated DateTime 3 18879.5 6 g 26.3 kg/m2 167.64 cm 98.7 [degF] 72 /min 116 mm[Hg] 80 mm[Hg] MYNOR Samuels [facility] 3 11:41:31 Social History Question Answer Notes LastModified by Organizat ion Details LastModified Time Tobacco Smoking Status Never Smoker Not Available [facility] 07/19/2022 04:34:13 Do You Have An Advance Directive? No [id number] Information not available 07/19/2022 What Is Your Level Of Alcohol Consumption? Occasional MIGRATION.29528 46557 Information not available 07/19/2022 Is Blood Transfusion Acceptable In An Emergency? Yes [email or web address] Information not available 02/16/2023 What Is Your Level Of Caffeine Consumption? Moderate MIGRATION.22196 64971 Information not available 07/19/2022 How Much Tobacco Do You Chew? None MIGRATION.98460 24834 Information not available 07/19/2022 In The 14 Days Before Symptom Onset, Have You Had Close Contact With A Laboratory-confi rmed COVID-19 While That Case Was Ill? No MIGRATION.43798 78498 Information not available 07/19/2022 In The 14 Days Before Symptom Onset, Have You Had Close Contact With A Person Who Is Under Investigation For COVID-19 While That Person Was Ill? No MIGRATION.54964 81524 Information not available 07/19/2022 Are You Currently Employed? Yes [email or web address] Information not available 02/16/2023 What Type Of Diet Are You Following? REGULAR [email or web address] Information not available 02/16/2023 Which Illicit Or Recreational Drugs Have You Used? None MIGRATION.84417 39549 Information not available 07/19/2022 What Is The Highest Grade Or Level Of School You Have Completed Or The Highest Degree You Have Received? 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 No [email or web address] Information not available 02/16/2023 Are There Any Guns Present In Your Home? Yes MIGRATION.03076 88067 Information not available 07/19/2022 Do You Use Insect Repellent Routinely? No [email or web address] Information not available 02/16/2023 Where Do You Live? SingleLevelHouse Information not available 02/16/2023 Do You Have A Medical Power Of Cold Working Supervisor? No [email or web address] Information not available 02/16/2023 What Was The Date Of Your Most Recent Tobacco Screening? 02/16/2023 [email or web address] Information not available 02/16/2023 How Many Children Do You Have? 2 [email or web address] Information not available 02/16/2023 Do You Have Any Pets? Yes [email or web address] Information not available 02/16/2023 What Is Your Relationship Status? [email or web address] Information not available 02/16/2023 Do You Use Your Seat Belt Or Car Seat Routinely? Yes Information not available 02/16/2023 Do You Have Smoke And Carbon Monoxide Detectors In Your Home? Yes [email or web address] Information not available 02/16/2023 Are You Passively Exposed To Smoke? No [email or web address] Information not available 02/16/2023 Are There Any Smokers In Your House? No [email or web address] Information not available 02/16/2023 How Much Tobacco Do You Smoke? No MIGRATION.89510 75514 Information not available 07/19/2022 Do You Feel Stressed (tense, Restless, Nervous, Or Anxious, Or Unable To Sleep At Night)? RO10957-0 [email or web address] Information not available 02/16/2023 Do You Use Any Illicit Or Recreational Drugs? No [email or web address] Information not available 02/16/2023 Do You Use Sunscreen Routinely? Yes MIGRATION.07564 54040 Information not available 07/19/2022 How Many Years Have You Smoked Tobacco? 0 MIGRATION.64387 06968 Information not available 07/19/2022 Have You Recently Traveled Abroad? No [email or web address] Information not available 02/16/2023 Do You Have Any Dietary Restrictions? No [email or web address] Information not available 02/16/2023 Do You Or Have You Ever Used Any Other Forms Of Tobacco Or Nicotine? No [email or web address] Information not available 02/16/2023 Sex: Female Functional Status Question Answer Note LastModified by Organization D etails LastModified Time What is your exercise level? Moderate [email or web address] Information not available 02/16/2023 Mental Status None recorded. Family History Relationship Description Onset Age of this Age Resolved Age Notes LastModified by Organization Details LastModified Time Mother Family history of breast cancer MIGRATION.[id number] Not available 07/19/2022 04:42:14 Maternal Grandmother Family history of breast cancer MIGRATION.803 [id number] Not available 07/19/2022 04:42:14 Paternal Grandmother Hypercholest erolemia MIGRATION.358 [id number] Not available 07/19/2022 04:42:14 Medical History Condition Response NERVE DISEASE N BLINDNESS N RHEUMATIC FEVER N KIDNEY STONES N BLADDER PROBLEMS N MRSA N OTHER # 1 N POLIO N LUNG DISEASE/DISORDER N COPD N RADIATION / CHEMOTHERAPY N Other # 2 N BLOOD DISEASES N EAR OR HEARING PROBLEMS N MUMPS N DEPRESSION (INCLUDING POST ) N BOWEL PROBLEMS N STROKE/TIA N ULCERS N BENIGN PROSTATIC HYPERPLASIA N MEASLES N MYOCARDIAL INFARCTION N OBESITY N GERD/NAUSEA N ANEURYSM N URINARY/BLADDER/KIDNEY PROBLEMS N CORONARY ARTERY DISEASE (CAD) N ADDICTION CONCERNS N Impotence N ENDOMETRIOSIS N USE OF BLOOD THINNERS N SKIN PROBLEMS N GASTROINTESTINAL DISORDER N PERIPHERAL VASCULAR DISEASE N MUSCLE,JOINT OR BONE PROBLEMS N GASTROINTESTINAL BLEEDING N BLOOD CLOTS N ASTHMA N CATARACTS N ERECTILE DYSFUNCTION N VARICOSITIES N GI PROBLEMS N Low Testosterone N INFERTILITY N AIDS/HIV N CHEMOTHERAPY / RADIATION N LIVER DISEASE N MALE HYPOGONADISM N HYPERTENSION N Deficiency N TOURETTE'S N ANXIETY DISORDER N BLOOD TRANSFUSION N ANEMIA/BLOOD DISORDER N CHRONIC EAR INFECTIONS N BRONCHITIS N TUBERCULOSIS N GLAUCOMA N FOOT PROBLEM N DIVERTICULITIS N SLEEP APNEA N CHICKENPOX N INFECTIOUS DISEASE N PROSTATE N HEART ARRHYTHMIA N INSOMNIA N HIGH CHOLESTEROL / HYPERLIPIDEMIA Y HYPERTHYROIDISM N EYE PROBLEMS N EDEMA N CHRONIC PAIN SYNDROME N HYPOTHYROIDISM N CONSTIPATION N CAROTID BLOCKAGE N BACK / NECK PROBLEMS N ATHEROSCLEROSIS N BREAST PROBLEMS N DIALYSIS N ECZEMA N OSTEOPOROSIS N ARTHRITIS N APPENDICITIS N DIABETES, TYPE N BAD TEETH N ENT N HEARTBURN / REFLUX N AUTISM SPECTRUM DISORDER (ASD) N HEPATITIS / LIVER DISEASE N GOUT N SLEEP DISORDER N ALZHEIMER'S DISEASE N Brain Problems N HERPES N DEMENTIA N SEIZURES/EPILEPSY N HEADACHES/MIGRAINES N VASCULAR DISEASE N PACEMAKER N Blood Disorder N DIZZINESS N KIDNEY DISEASE N HEART DISEASE/HEART PROBLEMS N MULTIPLE SCLEROSIS N CARDIAC ARRHYTHMIA N CANCER: SPECIFY N Gall Stones N ATRIAL FIBRILLATION N PULMONARY EMBOLISM N AUTOIMMUNE DISEASE N Gynecological History Statement/Question Response Abnormal Pap N Date of Last Pap 11/28/2017 Obstetrics History GPAL:G 1 P 0 0 0 0 Immunizations Vaccine Type Date Status Note Provider Ramiro scott and Address Organization Details Recorded Time Influenza, split virus, quadrivalent, preservative 9 completed Not Available [facility] 07/19/2022 05:04:36 Past Encounters Encounter ID Performer Location Encounter Start Date Encounter Closed Date Diagnosis/Indication Diagnosis SNOMED-CT Code Diagnosis ICD10 Code Diagnosis Note [id number] GALI Mota S_[facility] Internal Med [facility] [address] [facility], [address] [place] [address] 02/16/2023 11:29:46 02/16/2023 13:59:48 Umbilical hernia 485157841 K42.9 Get appt with surgeon to discuss- Dr. Martin also may want to have her diastasis repaired at the same time, will get her referred to a surgeon who also works with the plastic surgeon to see if this can all be done during the same surgery (Dr. Sánchez)E R precaution s Cyst of thyroid 01275172 E04.1 follows ENT- Dr. Salvador Kate will call to get reschedule d for her missed appt Diet education 40014085 Z71.3 recommend healthy, well balanced mealsfocus on lean meats, fresh vegetables , fresh fruits, whole grainsredu ce fast/proce ssed foods or eating out to no more than 1-2 times per weekaim to get 30 min of exercise most days of the week- walking is a great choicealso recommend resistance training 2-3 times per week we discussed the importance of protein, we discussed macros and how to count themthe importance of daily fitness was discussed, including the importance of resistance training We discussed various options of protein choices and how to find ways to prep ahead to incorporat e into diet Diastasis recti 78794867 M62.08 as above Health Concerns Section Related Observation LastModified by Organization Detai ls LastModified Time None Recorded Concern Status LastModified by Organization Details LastModified Time None Recorded Advance Directives Directive N: Payers Encounter Date Sequence Insurance Name Policy Number Policy Pryor Covered Member ID Pryor Member ID Guarantor Name 02/16/2023 1 [facility] [id number] Ariella Anderson [id number] Ariella Anderson Notes Date Note Type Note Provider Name and Address Organization Details Recorded Time 02/16/2023 text/html Ariella presents today for acute visit. She has not been seen since 2019.Since I last saw her, she has delivered 2 children. She reports after her 1st child she had some pretty significant diastasis recti and had to go to physical therapy for this. After her 2nd child, she developed an umbilical hernia. She reports she can not easily reduce the hernia but sometimes it is tender. Today she is not having any abdominal pain. She is not having any issues with nausea or vomiting and denies any changes in bowel habits. Denies any blood in the stool or dark tarry stool. She is not sure if she wants to get the umbilical hernia repaired yet as she is planning on 1 additional . She would like to see the surgeon to get an opinion on this. She also reports since I last saw her she was diagnosed with thyroid cyst. She follows ENT Dr. Salvador Day. She has had it drained several times. She missed her follow-up with him so she plans to schedule that again soon. Today she is not having any issues with swallowing or breathing. Denies any throat pain. She also been working on losing weight. She would like some additional advice on her nutrition and fitness plan. She does feel she is low on protein in her diet. She did have some recent labs done with her biometric screening at work. She will e-mail those to me on the portal. Marizol Stern, [facility] [address] [facility], [facility] [address], [place], [address], [facility] 02/16/2023 12:35:13 OBGyn Episode No OBEpisode recorded.
--- OUTSIDE RECORDS SUMMARY | 2024-06-13 22:15 | XMS_ITS | Patient Health Summary ---
Author Organization [facility] Address [address] [facility] [place] [address] Care Team Providers Care Expansion Envelope Maker Hand Name Role Phone Unavailable Primary Care Provider Unavailabl e Note from [facility],non-owned Affiliates and Associated Physician Practices is amultiple site organization consisting of ambulatory clinics and hospital sitesin [place], [place], [place] and [place]. This disclosure is being madepursuant to the Care Everywhere program and may not contain all information available regarding this patient. Last updated 18.[facility] Allergies No known active allergies Immunizations * TDAP (7yrs+)(Given 12/05/2019) Social History Tobacco Use Types Packs/Day Years Used Date Smoking Tobacco: Never Assessed Sex and Gender Information Value Date Recorded Sex Assigned at Not on file Gender Identity Not on file Sexual Orientation Not on file
--- OUTSIDE RECORDS SUMMARY | 2024-06-13 22:15 | XMS_ITS | Referral Summary ---
Author Organization [address] Address [address] [place] [address] Care Team Providers Care Cycle Specialist Name Role Phone Unknown, Notinfile Primary Care [...] Plan of Treatment Not on file Insurance [facility] [address] Care Teams Cycle Specialist Relationship Specialty Start Date End Date Unknown, Notinfile PCP - General 01/17/24
--- OUTSIDE RECORDS SUMMARY | 2024-06-13 22:15 | XMS_ITS | Clinical Summary ---
Author Organization [facility] 2022 Address [address] [place] [phone] Phone Care Team Providers Care Pediatric Dermatologist Name Role Phone Unavailable Primary Care Provider Unavailabl e Encounters Date Type Department Care Team Description 06/11/2024 External Device Data STL ABSTRACTION Provider, Abstract 04/08/2024 External Device Data STL ABSTRACTION Provider, Abstract 04/07/2024 1:51 PM WET PROCESS HEAD MILLER - 04/07/2024 11:59 PM WET PROCESS HEAD MILLER Hospital Encounter [facility] [address]ian Smith [address] [place] [phone] Grant Stoddard MD Discharge Disposition: Home or Self Care from Last 3 Months Social History Tobacco Use Types Packs/Day Years Used Date Smoking Tobacco: Never Assessed Comments Unknown Sex and Gender Information Value Date Recorded Sex Assigned at Not on file Legal Sex Female 8:48 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 Name: ARIELLA ANDERSON Study Date: 04/07/2024 2:33pm Pat. NO: [id number] Referring ??MD: GRANT STODDARD MD Site: [place] Dies[employer] Engine Inspector: Nara Newton RDMS : 1990 Age: 33 ----- INDICATION ----- Anatomy Survey ? patient states low risk NIPT Maternal Care for Low Transverse Scar from ? x 1 x 1 Previous Delivery (Previous ) CODING ----- Diagnoses ? Z3A.21: Weeks of gestation ?O34.211: Maternal care for low transverse scar from previous delivery ?Z36.3: Encounter for screening for malformations Procedures ?83203: Ultrasound, uterus, real time with image documentation, [...] lb 14 ? oz EFW by ?Hadlock ([id number]) Head / Face / Neck Biometry: Relief Map Modeler ? 4.4 ? mm CM ? 5.8 [...] view. RVOT view. LVOT view. 3-vessel view. 6-wetsfq-iolqfvs view. Situs. Aortic arch view. ?Ductal arch [...] and date of were confirmed by the academic affairs vice president prior to the exam IMPRESSION ----- Viable [...] Pat. Name:Carolyn ANDERSON Date:04/07/2024 2:33pm Pat. NO: [id number] MD:GRANT STODDARD MD [facility]Nara Newton RDMS :1990Age:33 ----- INDICATION ----- Anatomy Survey patient states lowrisk NIPT Maternal Care for Low Transverse Scar from x 1 x 1 Previous Delivery (Previous ) CODING ----- Diagnoses Z3A.21: Weeks of gestation O34.211: Maternal care for low transverse scarfrom previous delivery Z36.3: Encounter for screening formalformations Procedures 07709: Ultrasound, uterus, real time withimage documentation, and [...] dating:based on stated BALDOMERO GA by prior [email or web address] w + 3 d BALDOMERO by prior [...] 0 lb 14 oz EFW by Hadlock ([id number]) Head / Face / Neck Biometry: Relief Map Modeler 4.4 mm CM 5.8 mm 65%Nicolaides Outer [...] 4-chamber view. RVOT view. LVOT view. 3-vesselview. 6-mgzbic-cscujnx view. Situs. Aortic arch view. Ductal arch [...] and date of were confirmed by the academic affairs vice president priorto the exam IMPRESSION ----- Viable at [...] Result from Last [address] [facility] [address] [facility] OPTIONS PPO [id number]
--- OUTSIDE RECORDS SUMMARY | 2024-06-13 22:15 | XMS_ITS | Encounter Summary ---
Author Organization [facility] Address 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
[2024-06-13] MEDS: NIFEdipine 10 MG CAPSULE PO (22:59)
[2024-06-14] VITALS (10 sets, daily range): BP systolic 111; BP diastolic 62; PULSE 83–102; O2SAT 93–99; BMI 30.6
[2024-06-14] MEDS: TERBUTALINE SULFATE 1 MG/ML VIAL 0.25 MG SUB-Q (00:29)
[2024-06-14 00:32] LABS: Fetal Fibronectin Negative
--- NOTE | 2024-07-10 08:30 | PM.OBTRLD ---
OB - Triage/Final Diagnosis Visit Information Comments/Additional reasons for admission: I have assessed the risk for this patient, Ariella Anderson, and determined that she would benefit from observation care. Evaluation Laboratory results: Laboratory Tests 06/13/24 23:18 Fibronectin Negative Final Diagnosis (1) contractions: Code(s): O47.00 - False labor before 37 completed weeks of gestation, unspecified trimester Status: Acute
== END 2024-06-14 01:31 | disposition home or self-care (01) ==
PROVIDERS: Admitting Provider Obstetrics & Gynecology; Visit Provider Obstetrics & Gynecology
DX: O60.03 Preterm labor without delivery, third trimester (principal); Z3A.31 31 weeks gestation of pregnancy
CPT/HCPCS: 82731; 96372; A9270; G0378; G0379; J3105

== ENCOUNTER 2024-06-27 08:00 | Outpatient (CLI) | payer OTHER, SELFPAY ==
--- OUTSIDE RECORDS SUMMARY | 2024-06-27 08:08 | XMS_ITS | Clinical Summary ---
Author Organization [facility] Address [address] [place] [address] Care Team Providers Care Elementary Supervisor Name Role Phone Unavailable Primary Care Provider Unavailabl e Source Comments [facility],non-owned Affiliates and Associated Physician Practices is amultiple site organization consisting of ambulatory clinics and hospital sitesin [place], [place], [place] and [place]. This disclosure is being madepursuant to the Care Everywhere program and may not contain all information available regarding this patient. Last updated 18.[facility] [employer] Allergies No known active allergies Immunizations Name [...] this topic ARIELLA ANDERSON Personal/Family [address] [place] [address] ARIELLA ANDERSON Personal/Family [address] [place] [address] ARIELLA ANDERSON Personal/Family [address] [place] [address]
--- OUTSIDE RECORDS SUMMARY | 2024-06-27 08:08 | XMS_ITS | Referral Summary ---
Author Organization [facility] Address [address] [place] [address] Care Team Providers Care Fabrication Inspector Name Role Phone Unavailable Primary Care Provider Unavailabl e Source Comments [facility],non-owned Affiliates and Associated Physician Practices is amultiple site organization consisting of ambulatory clinics and hospital sitesin [place], [place], [place] and [place]. This disclosure is being madepursuant to the Care Everywhere program and may not contain all information available regarding this patient. Last updated 18.[facility] [employer] Allergies No known active allergies Immunizations Name Administration Dates Next Due TDAP (7yrs+) 12/05/2019 Social History Tobacco Use Types Packs/Day Years Used Date Smoking Tobacco: Never Assessed Sex and Gender Information Value Date Recorded Sex Assigned at Not on file Gender Identity Not on file Sexual Orientation Not on file Plan of Treatment Not on file ARIELLA ANDERSON Personal/Family [facility] [address] ARIELLA ANDERSON Personal/Family [address] [place], [place] [address] [address] ARIELLA ANDERSON Personal/Family [address] [place], [place] [address] [address]
--- OUTSIDE RECORDS SUMMARY | 2024-06-27 08:09 | XMS_ITS | Data Portability ---
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 She voiced understanding of plan and agrees She will e-mail me her recent lab results on the portal Texert Not available 02/16/2023 12:34:42 Plan of Treatment Reminders Order Date Submit Date Provider Last Modified By Organization Details Last Modified Time Details Appointments None recorded. Lab None recorded. Referral general surgeon referral - discuss umb hernia repair- now vs after next 2022 023 MICAELA Mendoza MD, [address] [place] [address] [address], [address], [place], [address], 3 13:31:06 Procedures None recorded. Surgeries None [...] Address Organization Details Recorded Time Umbilical hernia 265758112 Active 023 GALI Mota [address] [facility], [address], [place], [address] , [facility] 3 11:44:16 Cyst of thyroid 92771365 Active 023 GALI Mota [address] [facility], [address], [place], [address], [facility] [employer] [facility] 3 12:32:58 Diastasis recti 38054170 Active 023 Marizol Stern, [facility] [address], [address], [place], [address], [facility] [employer] [facility] 3 12:34:53 Problem Notes None recorded. Procedures Surgical History Date Name Laterality Status Provider Name and Address Organization Details Recorded Time 0 puncture and aspiration of cyst completed Not Available [facility] 07/19/2022 04:42:08 9 puncture and aspiration of cyst completed Not Available [facility] 07/19/2022 04:42:08 section completed MYNOR Samuels [facility] [employer] [facility] 02/16/2023 11:39:40 Imaging Results None recorded. [...] mcg (24)-iron 75 mg (4) chew tablet PHYSICIAN INDUSTRIAL 1 T PO QD 07/20 completed Not Available Not Available Not Available Vitals Date Recorded Body weight Body mass index (BMI) Body height Body temperature Heart rate Systolic blood pressure Diastolic blood pressure Provider Name and Address Organization Details Last Updated DateTime 3 40984.5 6 g 26.3 kg/m2 167.64 cm 98.7 [degF] 72 /min 116 mm[Hg] 80 mm[Hg] MYNOR Samuels [facility] 3 11:41:31 Social History Question Answer Notes LastModified by Organizat ion Details LastModified Time Tobacco Smoking Status Never Smoker Not Available [employer] 07/19/2022 04:34:13 Do You Have An Advance Directive? No [id number] Information not available 07/19/2022 What Is Your Level Of Alcohol Consumption? Occasional MIGRATION.05278 37856 Information not available 07/19/2022 Is Blood Transfusion Acceptable In An Emergency? Yes [email or web address] Information not available 02/16/2023 What Is Your Level Of Caffeine Consumption? Moderate MIGRATION.51102 47653 Information not available 07/19/2022 How Much Tobacco Do You Chew? None MIGRATION.59170 12240 Information not available 07/19/2022 In The 14 Days Before Symptom Onset, Have You Had Close Contact With A Laboratory-confi rmed COVID-19 While That Case Was Ill? No MIGRATION.26728 70416 Information not available 07/19/2022 In The 14 Days Before Symptom Onset, Have You Had Close Contact With A Person Who Is Under Investigation For COVID-19 While That Person Was Ill? No MIGRATION.85804 90296 Information not available 07/19/2022 Are You Currently Employed? Yes [email or web address] Information not available 02/16/2023 What Type Of Diet Are You Following? REGULAR [email or web address] Information not available 02/16/2023 Which Illicit Or Recreational Drugs Have You Used? None MIGRATION.81307 46689 Information not available 07/19/2022 What Is The Highest Grade Or Level Of School You Have Completed Or The Highest Degree You Have Received? 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 No [email or web address] Information not available 02/16/2023 Are There Any Guns Present In Your Home? Yes MIGRATION.68601 02880 Information not available 07/19/2022 Do You Use Insect Repellent Routinely? No [email or web address] Information not available 02/16/2023 Where Do You Live? SingleLevelHouse [email or web address] Information not available 02/16/2023 Do You Have A Medical Power Of Dietary Tech? No Information not available 02/16/2023 What Was The Date Of Your Most Recent Tobacco Screening? 02/16/2023 [email or web address] Information not available 02/16/2023 How Many Children Do You Have? 2 [email or web address] Information not available 02/16/2023 Do You Have Any Pets? Yes [email or web address] Information not available 02/16/2023 What Is Your Relationship Status? [email or web address] Information not available 02/16/2023 Do You Use Your Seat Belt Or Car Seat Routinely? Yes [email or web address] Information not available 02/16/2023 Do You Have Smoke And Carbon Monoxide Detectors In Your Home? Yes [email or web address] Information not available 02/16/2023 Are You Passively Exposed To Smoke? No [email or web address] Information not available 02/16/2023 Are There Any Smokers In Your House? No [email or web address] Information not available 02/16/2023 How Much Tobacco Do You Smoke? No MIGRATION.30271 11475 Information not available 07/19/2022 Do You Feel Stressed (tense, Restless, Nervous, Or Anxious, Or Unable To Sleep At Night)? [id number] rttiilvum45 Information not available 02/16/2023 Do You Use Any Illicit Or Recreational Drugs? No [email or web address] Information not available 02/16/2023 Do You Use Sunscreen Routinely? Yes MIGRATION.18995 35642 Information not available 07/19/2022 How Many Years Have You Smoked Tobacco? 0 MIGRATION.19179 53724 Information not available 07/19/2022 Have You Recently Traveled Abroad? No [email or web address] Information not available 02/16/2023 Do You Have Any Dietary Restrictions? No [email or web address] Information not available 02/16/2023 Do You Or Have You Ever Used Any Other Forms Of Tobacco Or Nicotine? No [email or web address] Information not available 02/16/2023 Sex: Female Functional Status Question Answer Note LastModified by Organization D etails LastModified Time What is your exercise level? Moderate [email or web address] Information not available 02/16/2023 Mental Status None recorded. Family History Relationship Description Onset Age of this Age Resolved Age Notes LastModified by Organization Details LastModified Time Mother Family history of breast cancer MIGRATION.931 [id number] Not available 07/19/2022 04:42:14 Maternal Grandmother Family history of breast cancer MIGRATION.592 [id number] Not available 07/19/2022 04:42:14 Paternal Grandmother Hypercholest erolemia MIGRATION.292 [id number] Not available 07/19/2022 04:42:14 Medical History Condition Response NERVE DISEASE N BLINDNESS N RHEUMATIC FEVER N KIDNEY STONES N BLADDER PROBLEMS N MRSA N OTHER # 1 N POLIO N LUNG DISEASE/DISORDER N COPD N RADIATION / CHEMOTHERAPY N Other # 2 N BLOOD DISEASES N EAR OR HEARING PROBLEMS N MUMPS N BOWEL PROBLEMS N DEPRESSION (INCLUDING POST ) N STROKE/TIA N ULCERS N BENIGN PROSTATIC HYPERPLASIA N MEASLES N MYOCARDIAL INFARCTION N OBESITY N GERD/NAUSEA N ANEURYSM N URINARY/BLADDER/KIDNEY PROBLEMS N CORONARY ARTERY DISEASE (CAD) N ADDICTION CONCERNS N ENDOMETRIOSIS N Impotence N USE OF BLOOD THINNERS N SKIN [...] APNEA N CHICKENPOX N INFECTIOUS DISEASE N HEART ARRHYTHMIA N PROSTATE N INSOMNIA N HIGH CHOLESTEROL / HYPERLIPIDEMIA Y HYPERTHYROIDISM N EYE PROBLEMS N EDEMA N CHRONIC PAIN SYNDROME N HYPOTHYROIDISM N CAROTID BLOCKAGE N CONSTIPATION N BACK / NECK PROBLEMS N ATHEROSCLEROSIS N BREAST PROBLEMS N DIALYSIS N ECZEMA N OSTEOPOROSIS N ARTHRITIS N APPENDICITIS N DIABETES, TYPE N BAD TEETH N ENT N HEARTBURN / REFLUX N AUTISM SPECTRUM DISORDER (ASD) N HEPATITIS / LIVER DISEASE N GOUT N SLEEP DISORDER N ALZHEIMER'S DISEASE N Brain Problems N HERPES N DEMENTIA N HEADACHES/MIGRAINES N SEIZURES/EPILEPSY N VASCULAR DISEASE N PACEMAKER N Blood Disorder N DIZZINESS N HEART DISEASE/HEART PROBLEMS N KIDNEY DISEASE N MULTIPLE SCLEROSIS N CARDIAC ARRHYTHMIA N CANCER: SPECIFY N ATRIAL FIBRILLATION N Gall Stones N PULMONARY EMBOLISM N AUTOIMMUNE DISEASE N Gynecological History Statement/Question Response Abnormal Pap N Date of Last Pap 11/28/2017 Obstetrics History GPAL:G 1 P 0 0 0 0 Immunizations Vaccine Type Date Status Note Provider Ramiro scott and Address Organization Details Recorded Time Influenza, split virus, quadrivalent, preservative 9 completed Not Available [facility]19[facility] 05:04:36 Past Encounters Encounter ID Performer Location Encounter Start Date Encounter Closed Date Diagnosis/Indication Diagnosis SNOMED-CT Code Diagnosis ICD10 Code Diagnosis Note [id number] GALI Mota S_[facility] Internal Med [facility] [address] [facility], [address] [place] [address] 02/16/2023 11:29:46 02/16/2023 13:59:48 Umbilical hernia 533329568 K42.9 Get appt with surgeon to discuss- Dr. Martin also may want to have her diastasis repaired at the same time, will get her referred to a surgeon who also works with the plastic surgeon to see if this can all be done during the same surgery (Dr. Sánchez)E R precaution s Cyst of thyroid 77368555 E04.1 follows ENT- Dr. Salvador Kate will call to get reschedule d for her missed appt Diet education 07134631 Z71.3 recommend healthy, well balanced mealsfocus on [...] to incorporat e into diet Diastasis recti 60345715 M62.08 as above Health Concerns Section Related Observation LastModified by Organization Detai ls LastModified Time None Recorded Concern Status LastModified by Organization Details LastModified Time None Recorded Advance Directives Directive N: Payers Encounter Date Sequence Insurance Name Policy Number Policy Pryor Covered Member ID Pryor Member ID Guarantor Name 02/16/2023 1 [facility] [id number] Ariella Anderson [id number] Ariella Anderson Notes Date Note Type Note [...] on the portal. Marizol Stern, MIKE-C [address] [facility], [facility] [address], [place], [address], [facility] 02/16/2023 12:35:13 OBGyn Episode No OBEpisode recorded.
--- OUTSIDE RECORDS SUMMARY | 2024-06-27 08:09 | XMS_ITS | Clinical Summary ---
Author Organization [facility] [address] [place] Address [address] [place] [address] Care Team Providers Care Glazing Superintendent Name Role Phone Unknown, Notinfile Primary Care [...] 90 01/17/2024 8:12 AM CDT Temperature 37 C (98.6 F) 01/17/2024 8:12 AM CDT Respiratory Rate 20 [...] patient's age to complete this topic Insurance [facility] H[facility]/PPO Address: [facility] [address] [place] [address] Care Teams Glazing Superintendent Relationship Specialty Start Date End Date Unknown, Notinfile PCP - General 01/17/24
--- OUTSIDE RECORDS SUMMARY | 2024-06-27 08:09 | XMS_ITS | Clinical Summary ---
Author Organization [facility] Mert corey [facility] - 2022 Address [address] [place] [address] Phone Care Team Providers Care Site Project Manager Name Role Phone Unavailable Primary Care Provider Unavailabl e Encounters Date Type Department Care Team Description 06/17/2024 External Device Data STL ABSTRACTION Provider, Abstract 06/11/2024 External Device Data STL ABSTRACTION Provider, Abstract 06/11/2024 External Device Data STL ABSTRACTION Provider, Abstract 04/08/2024 External Device Data STL ABSTRACTION Provider, Abstract 04/07/2024 1:51 PM MEAT INSPECTOR - 04/07/2024 11:59 PM MEAT INSPECTOR Hospital Encounter [facility] and [facility] [address] [place] [address] Grant Stoddard MD Discharge Disposition: Home or Self Care from Last 3 Months Social History Tobacco Use Types Packs/Day Years Used Date Smoking Tobacco: Never Assessed Comments Unknown Sex and Gender Information Value Date Recorded Sex Assigned at Not on file Legal Sex Female 8:48 AM MEAT INSPECTOR Gender Identity Not on file Sexual Orientation [...] WKS SINGLE GEST Routine 04/07/2024 3:09 PM MEAT INSPECTOR screening for malformation using ultrasonics from Last 3 Months Results * US OB 14+ WKS SINGLE GEST (04/07/2024 3:09 PM MEAT INSPECTOR) Anatomical Region Laterality Modality Pelvis Ultrasound 04/07/2024 2:33 PM MEAT INSPECTOR Narrative 04/07/2024 3:33 PM MEAT INSPECTOR STL BASIC ----- Pat. Name: ARIELLA ANDERSON Study Date: 04/07/2024 2:33pm Pat. NO: [id number] Referring MD: GRANT STODDARD MD Site: [place] Water Filtration Technician: Nara Newton RDMS : 1990 Age: 33 ----- INDICATION ----- Anatomy Survey patient states low risk NIPT Maternal Care for Low Transverse Scar from x 1 x 1 Previous Delivery (Previous ) CODING ----- Diagnoses Z3A.21: Weeks of gestation O34.211: Maternal care for low transverse scar from previous delivery Z36.3: Encounter for screening for malformations Procedures 42681: Ultrasound, uterus, real time with image documentation, and maternal evaluation, after first trimester (> or = 14 weeks 0 days), transabdominal approach; single or first gestation HISTORY ----- OB History 2. Para 1 MATERNAL ASSESSMENT ----- Physical Exam Weight 82 kg. BMI 29.05 kg/m METHOD ----- Transabdominal ultrasound examination ----- Conti [...] d Assigned BALDOMERO: 08/15/2024 BIOMETRY ----- BPD 47.1 mm 20w 2d 9% Hadlock OFD 65.5 mm 22w 1d 74% Dennis HC 181.6 mm 20w 4d 10% Hadlock Cerebellum tr 22.7 mm 22w 0d 59% Mckeon Nuchal fold 3.6 mm AC 162.4 mm 21w 2d 39% Hadlock Femur 36.0 mm 21w 3d 40% Hadlock Humerus 33.5 mm 21w 3d 44% Dennis HC / AC 1.12 25% Nicolaides Weight Calculation: EFW 409 g 21w 1d 34% Hadlock EFW (lb,oz) 0 lb 14 oz EFW by Hadlock ([id number]-FL) Head / Face / Neck Biometry: Cosmetology Teacher 4.4 mm CM 5.8 mm 65% Nicolaides Outer IOD 31.6 mm 20w 2d 8% Dennis Extremities / Bony Struc Biometry: FL [...] Head / Neck Cranium. Lateral ventricles. Choroid plexus. Midline falx. Cavum septi pellucidi. Cerebellum. Cisterna magna. Nuchal fold. Face Lips. Profile. Nose. Palate. Orbits. Heart / Thorax 4-chamber view. RVOT view. LVOT view. 3-vessel view. 5-pfqrgt-dllscpk view. Situs. Aortic arch view. Ductal arch view. Superior vena cava. Inferior vena cava. High short axis view. Cardiac rhythm. Diaphragm. Abdomen Abdominal wall. Stomach. Kidneys. Bladder. Spine Cervical spine. Thoracic spine. Lumbar spine. Sacral spine. Extremities / Arms. Right hand. Left hand. Legs. Right foot. Left foot. Skeleton MATERNAL STRUCTURES ----- Cervix Visualized Approach - Transabdominal: Cervical length 51.5 mm Right Ovary Normal Size 24 mm x 20 mm x 13 mm. Vol 3.4 cm Left Ovary Normal Size 31 mm x 22 mm x 11 mm. Vol 3.8 cm GROWTH OVERVIEW ----- Exam date GA BPD (mm) HC (mm) AC (mm) FL (mm) HL (mm) EFW (g) 04/07/2024 21w 3d 47.1 9% 181.6 10% 162.4 39% 36.0 40% 33.5 44% 409 34% COMMENT ----- Patient's name and date of were confirmed by the generation engineering technologist prior to the exam IMPRESSION ----- Viable [...] Pat. Name:Carolyn ANDERSON Date:04/07/2024 2:33pm Pat. NO: [id number] MD:GRANT STODDARD [facility] RD[facility] :1990Age:33 ----- INDICATION ----- Anatomy Survey patient states lowrisk NIPT Maternal Care for Low Transverse Scar from x 1 x 1 Previous Delivery (Previous ) CODING ----- Diagnoses Z3A.21: Weeks of gestation O34.211: Maternal care for low transverse scarfrom previous delivery Z36.3: Encounter for screening formalformations Procedures 36413: Ultrasound, uterus, real time withimage documentation, and maternal evaluation, after first trimester (> or = 14 weeks 0 days),transabdominal approach; single or first gestation HISTORY ----- OB History 2. Para 1 MATERNAL ASSESSMENT ----- Physical Exam Weight 82 kg. BMI 29.05 kg/m METHOD ----- Transabdominal ultrasound examination ----- Conti . Number of fetuses: 1 DATING ----- Cycle:regular cycle Method of dating:based on stated BALDOMERO GA by prior [email or web address] w + 3 d BALDOMERO by prior [...] 0 lb 14 oz EFW by Hadlock (NEA-CC-CL-FL) Head / Face / Neck Biometry: Cosmetology Teacher 4.4 mm CM 5.8 mm 65%Nicolaides Outer [...] 4-chamber view. RVOT view. LVOT view. 3-vesselview. 8-rlsand-fcjfzxw view. Situs. Aortic arch view. Ductal arch [...] 20 mm x 13 mm. Vol 3.4 cm Left Ovary Normal Size 31 mm x 22 mm x 11 mm. Vol 3.8 cm GROWTH OVERVIEW ----- Exam date GA BPD (mm) HC (mm) AC (mm) FL(mm) HL (mm) EFW (g) 04/07/2024 21w 3d 47.1 9% 181.6 10% 162.4 39%36.0 40% 33.5 44% 409 34% COMMENT ----- Patient's name and date of were confirmed by the generation engineering technologist priorto the exam IMPRESSION ----- Viable at [...] fetalgrowth and development us Grant Stoddard MD US ORDERABLES Final Result from Last 3 Months Insurance [facility] OPTIONS PPO [id number]
--- OUTSIDE RECORDS SUMMARY | 2024-06-27 08:09 | XMS_ITS | Referral Summary ---
Author Organization [address] Address [address] [place] [address] Care Team Providers Care Television Cabinet Finisher Name Role Phone Unknown, Notinfile Primary Care [...] Plan of Treatment Not on file Insurance [facility] HMO/PPO Address: [facility] [address] [place] [address] Care Teams Television Cabinet Finisher Relationship Specialty Start Date End Date Unknown, Notinfile PCP - General 01/17/24
--- OUTSIDE RECORDS SUMMARY | 2024-06-27 08:09 | XMS_ITS | Patient Health Summary ---
Author Organization [facility] Address [address] [facility] [place] [address] Care Team Providers Care Dry Cleaning Counter Clerk Name Role Phone Unavailable Primary Care Provider Unavailabl e Note from [facility],non-owned Affiliates and Associated Physician Practices is amultiple site organization consisting of ambulatory clinics and hospital sitesin [place], [place], [place] and [place]. This disclosure is being madepursuant to the Care Everywhere program and may not contain all information available regarding this patient. Last updated 18.[facility] ScoreFeeder Allergies No known active allergies Immunizations * TDAP (7yrs+)(Given 12/05/2019) Social History Tobacco Use Types Packs/Day Years Used Date Smoking Tobacco: Never Assessed Sex and Gender Information Value Date Recorded Sex Assigned at Not on file Gender Identity Not on file Sexual Orientation Not on file
[2024-06-27 13:56] LABS: Basophils Absolute Auto 0.1 K/mm3 (0.0-0.1); Basophils Percent Auto 0.5 % (0.2-1.2); Eosinophils Percent Auto 0.2 % (0-4.4); Hemoglobin 11.9 g/dL (12.0-15.0); Immature Granulocyte Absolute 0.25 K/mm3 (0.00-0.031); Immature Granulocyte Percent A 1.6 % (0-0.5); Lymphocytes Absolute Auto 2.25 K/mm3 (0.9-3.2); Lymphocytes Percent Auto 14.6 % (18.3-44.2); Mean Corpuscular HGB Conc 32.2 g/dl (32-36); Mean Corpuscular Hemoglobin 29.8 pg (26-34); Mean Corpuscular Volume 92.5 fl (80-100); Mean Platelet Volume 11.2 fl (7.4-10.4); Monocytes Absolute Auto 1.2 K/mm3 (0.1-0.6); Monocytes Percent Auto 7.5 % (2.6-8.5); Neutrophils Absolute Auto 11.6 K/mm3 (1.3-6.7); Neutrophils Percent Auto 75.6 % (45.5-73.1); Platelet Count Result 197 k/mm3 (150-375); Red Cell Distribution Width 12.9 % (11.5-14.5); White Blood Count 15.4 K/mm3 (4.5-10.0)
[2024-06-27 14:12] LABS: Rapid Plasma Reagin Non-Reactive (NonReactive)
[2024-06-27 14:52] LABS: HIV 1/2 Ab P24 Ag Result Negative (Negative)
== END 2024-06-27 08:01 | disposition home or self-care (01) ==
LOC: ANHGOSHLAB 08:02
PROVIDERS: PCP Nurse Practitioner Obstetrics & Gynecology; Visit Provider Nurse Practitioner Obstetrics & Gynecology
DX: Z34.90 Encounter for supervision of normal pregnancy, unspecified, unspecified trimester (principal)
CPT/HCPCS: 36415; 84436; 84443; 85025; 86592; 86703; G0432

== ENCOUNTER 2024-07-29 08:07 | Outpatient (CLI) | payer OTHER, SELFPAY ==
--- OUTSIDE RECORDS SUMMARY | 2024-07-29 08:16 | XMS_ITS | Patient Health Summary ---
Author Organization [facility] Address [address] [facility] [place] [address] Care Team Providers Care Log Roper Name Role Phone Unavailable Primary Care Provider Unavailabl e Note from [facility],non-owned Affiliates and Associated Physician Practices is amultiple site organization consisting of ambulatory clinics and hospital sitesin [place], [place], [place] and [place]. This disclosure is being madepursuant to the Care Everywhere program and may not contain all information available regarding this patient. Last updated 18.[facility] Allergies No known active allergies Immunizations * TDAP (7yrs+)(Given 12/05/2019) Social History Tobacco Use Types Packs/Day Years Used Date Smoking Tobacco: Never Assessed Sex and Gender Information Value Date Recorded Sex Assigned at Not on file Gender Identity Not on file Sexual Orientation Not on file
--- OUTSIDE RECORDS SUMMARY | 2024-07-29 08:16 | XMS_ITS | Encounter Summary ---
Author Organization [facility] Address [address] [place] [address] Care Team Providers Care Showroom Salesperson Name Role Phone Unavailable Primary Care Provider Unavailabl e Encounter Details Date Type Department Care Team (Late st Contact Info) Description 07/26/2024 External Device Data STL ABSTRACTION Provider, Abstract NO ADDRESS ON FILE Social History Tobacco Use Types Packs/Day Years Used Date Smoking Tobacco: Never Assessed Comments Unknown Sex and Gender Information Value Date Recorded Sex Assigned at Not on file Legal Sex Female 8:48 AM SCREENER OPERATOR Gender Identity Not on file Sexual Orientation Not on file documented as of this encounter Plan of Treatment Not on file documented as of this encounter Visit Diagnoses Not on filedocumented in this encounter
--- OUTSIDE RECORDS SUMMARY | 2024-07-29 08:16 | XMS_ITS | Clinical Summary ---
Author Organization [facility] Address [address] [facility] [place] [address] Care Team Providers Care Palm Gatherer Name Role Phone Unavailable Primary Care Provider Unavailabl e Source Comments [facility],non-owned Affiliates and Associated Physician Practices is amultiple site organization consisting of ambulatory clinics and hospital sitesin [place], [place]. This disclosure is being madepursuant to the Care Everywhere program and may not contain all information available regarding this patient. Last updated 18.[facility] [employer]ritter Allergies No known active allergies Immunizations Name [...] this topic ARIELLA ANDERSON Personal/Family [address] [place] [address] ARIELLA ANDERSON Personal/Family [address] [place] [address] ARIELLA ANDERSON Personal/Family [address] [place] [address]
--- OUTSIDE RECORDS SUMMARY | 2024-07-29 08:16 | XMS_ITS | Data Portability ---
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 She voiced understanding of plan and agrees She will e-mail me her recent lab results on the portal rimidi Not available 02/16/2023 12:34:42 Plan of Treatment Reminders Order Date Submit Date Provider Last Modified By Organization Details Last Modified Time Details Appointments None recorded. Lab None recorded. Referral general surgeon referral - discuss umb hernia repair- now vs after next 2022 023 MICAELA Mendoza MD, [address] [place] [address] [address], [place], [address], 3 13:31:06 Procedures None recorded. Surgeries None [...] Address Organization Details Recorded Time Umbilical hernia 183249157 Active 023 GALI Mota [address] [facility], [address], [place], [address] , [facility] 3 11:44:16 Cyst of thyroid 48588497 Active 023 GALI Mota [address] [facility], [address], [place], [address], [facility] [employer] [facility] 3 12:32:58 Diastasis recti 06859167 Active 023 Mariozl Stern, [facility] [address], [address], [place], [address], [facility] [employer] [facility] 3 12:34:53 Problem Notes None recorded. Procedures Surgical History Date Name Laterality Status Provider Name and Address Organization Details Recorded Time 0 puncture and aspiration of cyst completed Not Available [facility] 07/19/2022 04:42:08 9 puncture and aspiration of cyst completed Not Available [facility] 07/19/2022 04:42:08 section completed MYNOR Samuels [facility] [employer] [facility] 02/16/2023 11:39:40 Imaging Results None recorded. 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 1 T PO QD 07/20 completed Not Available Not Available Not Available Vitals Date Recorded Body weight Body mass index (BMI) Body height Body temperature Heart rate Systolic blood pressure Diastolic blood pressure Provider Name and Address Organization Details Last Updated DateTime 3 02231.5 6 g 26.3 kg/m2 167.64 cm 98.7 [degF] 72 /min 116 mm[Hg] 80 mm[Hg] MYNOR Samuels [facility] 3 11:41:31 Social History Question Answer Notes LastModified by Organizat ion Details LastModified Time Tobacco Smoking Status Never Smoker Not Available [facility] 07/19/2022 04:34:13 Do You Have An Advance Directive? No [id number] Information not available 07/19/2022 What Is Your Level Of Alcohol Consumption? Occasional MIGRATION.89497 32746 Information not available 07/19/2022 Is Blood Transfusion Acceptable In An Emergency? Yes [email or web address] Information not available 02/16/2023 What Is Your Level Of Caffeine Consumption? Moderate MIGRATION.80214 94892 Information not available 07/19/2022 How Much Tobacco Do You Chew? None MIGRATION.44941 19584 Information not available 07/19/2022 In The 14 Days Before Symptom Onset, Have You Had Close Contact With A Laboratory-confi rmed COVID-19 While That Case Was Ill? No MIGRATION.36965 65119 Information not available 07/19/2022 In The 14 Days Before Symptom Onset, Have You Had Close Contact With A Person Who Is Under Investigation For COVID-19 While That Person Was Ill? No MIGRATION.82990 76288 Information not available 07/19/2022 Are You Currently Employed? Yes [email or web address] Information not available 02/16/2023 What Type Of Diet Are You Following? REGULAR [email or web address] Information not available 02/16/2023 Which Illicit Or Recreational Drugs Have You Used? None MIGRATION.03343 21795 Information not available 07/19/2022 What Is The Highest Grade Or Level Of School You Have Completed Or The Highest Degree You Have Received? 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 No [email or web address] Information not available 02/16/2023 Are There Any Guns Present In Your Home? Yes MIGRATION.90426 19046 Information not available 07/19/2022 Do You Use Insect Repellent Routinely? No [email or web address] Information not available 02/16/2023 Where Do You Live? SingleLevelHouse [email or web address] Information not available 02/16/2023 Do You Have A Medical Power Of Buffer Inflated Pad? No [email or web address] Information not available 02/16/2023 What Was The Date Of Your Most Recent Tobacco Screening? 02/16/2023 Information not available 02/16/2023 How Many Children Do You Have? 2 [email or web address] Information not available 02/16/2023 Do You Have Any Pets? Yes Information not available 02/16/2023 What Is Your Relationship Status? [email or web address] Information not available 02/16/2023 Do You Use Your Seat Belt Or Car Seat Routinely? Yes [email or web address] Information not available 02/16/2023 Do You Have Smoke And Carbon Monoxide Detectors In Your Home? Yes [email or web address] Information not available 02/16/2023 Are You Passively Exposed To Smoke? No [email or web address] Information not available 02/16/2023 Are There Any Smokers In Your House? No [email or web address] Information not available 02/16/2023 How Much Tobacco Do You Smoke? No MIGRATION.10054 96381 Information not available 07/19/2022 Do You Feel Stressed (tense, Restless, Nervous, Or Anxious, Or Unable To Sleep At Night)? [id number] [email or web address] Information not available 02/16/2023 Do You Use Any Illicit Or Recreational Drugs? No [email or web address] Information not available 02/16/2023 Do You Use Sunscreen Routinely? Yes MIGRATION.76323 52583 Information not available 07/19/2022 How Many Years Have You Smoked Tobacco? 0 MIGRATION.91806 20987 Information not available 07/19/2022 Have You Recently Traveled Abroad? No [email or web address] Information not available 02/16/2023 Do You Have Any Dietary Restrictions? No [email or web address] Information not available 02/16/2023 Do You Or Have You Ever Used Any Other Forms Of Tobacco Or Nicotine? No [email or web address] Information not available 02/16/2023 Sex: Female Functional Status Question Answer Note LastModified by Organization D etails LastModified Time What is your exercise level? Moderate [email or web address] Information not available 02/16/2023 Mental Status None recorded. Family History Relationship Description Onset Age of this Age Resolved Age Notes LastModified by Organization Details LastModified Time Mother Family history of breast cancer MIGRATION.494 [id number] Not available 07/19/2022 04:42:14 Maternal Grandmother Family history of breast cancer MIGRATION.521 [id number] Not available 07/19/2022 04:42:14 Paternal Grandmother Hypercholest erolemia MIGRATION.113 [id number] Not available 07/19/2022 04:42:14 Medical History Condition Response NERVE DISEASE N BLINDNESS N RHEUMATIC FEVER N KIDNEY STONES N BLADDER PROBLEMS N MRSA N OTHER # 1 N POLIO N LUNG DISEASE/DISORDER N RADIATION / CHEMOTHERAPY N COPD N Other # 2 N BLOOD DISEASES [...] virus, quadrivalent, preservative 9 completed Not Available [facility] 07[facility]2022 05:04:36 Past Encounters Encounter ID Performer Location Encounter Start Date Encounter Closed Date Diagnosis/Indication Diagnosis SNOMED-CT Code Diagnosis ICD10 Code Diagnosis Note [id number] GALI Mota [facility] [address] [facility], [address] [place] [address] 02/16/2023 11:29:46 02/16/2023 13:59:48 Umbilical hernia 558204010 K42.9 Get appt with surgeon to discuss- Dr. Martin also may want to have her diastasis repaired at the same time, will get her referred to a surgeon who also works with the plastic surgeon to see if this can all be done during the same surgery (Dr. Sánchez)E R precaution s Cyst of thyroid 91159640 E04.1 follows ENT- Dr. Salvador Kate will call to get reschedule d for her missed appt Diet education 07594306 Z71.3 recommend healthy, well balanced mealsfocus on [...] to incorporat e into diet Diastasis recti 83286706 M62.08 as above Health Concerns Section Related Observation LastModified by Organization Detai ls LastModified Time None Recorded Concern Status LastModified by Organization Details LastModified Time None Recorded Advance Directives Directive N: Payers Encounter Date Sequence Insurance Name Policy Number Policy Pryor Covered Member ID Pryor Member ID Guarantor Name 02/16/2023 1 [facility] [id number] Ariella Anderson [id number] Ariella Anderson Notes Date Note Type Note [...] on the portal. Marizol Stern, MIKE-C [address] [facility], [facility], [place], [address], [facility] 02/16/2023 12:35:13 OBGyn Episode No OBEpisode recorded.
--- OUTSIDE RECORDS SUMMARY | 2024-07-29 08:16 | XMS_ITS | Referral Summary ---
Author Organization [facility] Address [address] [facility] [place] [address] Care Team Providers Care Locket Maker Name Role Phone Unavailable Primary Care Provider Unavailabl e Source Comments [facility],non-owned Affiliates and Associated Physician Practices is amultiple site organization consisting of ambulatory clinics and hospital sitesin [place], [place], [place] and [place]. This disclosure is being madepursuant to the Care Everywhere program and may not contain all information available regarding this patient. Last updated 18.[facility] [employer] Allergies No known active allergies Immunizations Name Administration Dates Next Due TDAP (7yrs+) 12/05/2019 Social History Tobacco Use Types Packs/Day Years Used Date Smoking Tobacco: Never Assessed Sex and Gender Information Value Date Recorded Sex Assigned at Not on file Gender Identity Not on file Sexual Orientation Not on file Plan of Treatment Not on file ARIELLA ANDERSON Personal/Family [facility] [place] [address] ARIELLA ANDERSON Personal/Family [address] [place], [place] [address] [address] ARIELLA ANDERSON Personal/Family [address] [place], [place] [address] [address]
--- OUTSIDE RECORDS SUMMARY | 2024-07-29 08:17 | XMS_ITS | Clinical Summary ---
Author Organization [facility] Mert corey [facility] 2022 Address [address] [facility] [address] [place] [address] Phone Care Team Providers Care Antenna Machine Operator Name Role Phone Unavailable Primary Care Provider Unavailabl e Encounters Date Type Department Care Team Description 07/26/2024 External Device Data STL ABSTRACTION Provider, Abstract 07/25/2024 External Device Data STL ABSTRACTION Provider, Abstract 07/23/2024 External Device Data STL ABSTRACTION Provider, Abstract 07/17/2024 8:11 AM SECURITY SME - 07/17/2024 11:59 PM SECURITY SME Hospital Encounter [facility] Fabian Smith [address] [place] [address] Grant Stoddard MD Discharge Disposition: Home or Self Care 07/09/2024 External Device Data STL ABSTRACTION Provider, Abstract 06/17/2024 External Device Data STL ABSTRACTION Provider, Abstract 06/11/2024 External Device Data STL ABSTRACTION Provider, Abstract 06/11/2024 External Device Data STL ABSTRACTION Provider, Abstract from Last 3 Months Social History Tobacco Use Types Packs/Day Years Used Date Smoking Tobacco: Never Assessed Comments Unknown Sex and Gender Information Value Date Recorded Sex Assigned at Not on file Legal Sex Female 8:48 AM SECURITY SME Gender Identity Not on file Sexual Orientation [...] Priority Date/Time Associated Diagnosis Comments US OB FOLLOW UP PER FETUS Routine 07/17/2024 8:38 AM SECURITY SME Encounter for anatomic survey from Last 3 Months Results * US OB FOLLOW UP PER FETUS (07/17/2024 8:38 AM SECURITY SME) Anatomical Region Laterality Modality Pelvis Ultrasound 07/17/2024 8:13 AM SECURITY SME Narrative 07/17/2024 8:41 AM SECURITY SME STL FOLLOW UP ----- Pat. Name: ARIELLA ANDERSON Study Date: 07/17/2024 8:13am Pat. NO: [id number] Referring MD: GRANT STODDARD MD Site: [facility] Specialist: Cyndi Pinon RDMS : 1990 Age: 34 ----- INDICATION ----- Maternal Care for Low Transverse Scar from Previous Delivery (Previous ) Screening Follow-Up CODING ----- Diagnoses Z3A.35: Weeks of gestation O34.211: Maternal care for low transverse scar from previous delivery Z36.3: Encounter for screening for malformations Z3A.35: Weeks of gestation Z36.2: Encounter for other screening follow-up Procedures 84528: Ultrasound, uterus, real time with image documentation, follow up, transabdominal approach per fetus HISTORY ----- OB History 2. Para 1 METHOD ----- Transabdominal ultrasound examination ----- Conti . Number of fetuses: 1 DATING ----- Cycle: regular cycle GA by prior assessment 35 w + 6 d BALDOMERO by prior assessment: 08/15/2024 Ultrasound examination on: 07/17/2024 GA by U/S based upon: AC, BPD, EFW, Femur, HC GA by U/S 34 w + 2 d BALDOMERO by U/S: 08/26/2024 Method of dating: Restore dating from previous exam Assigned: based on stated BALDOMERO, selected on 04/07/2024 Assigned GA 35 w + 6 d Assigned BALDOMERO: 08/15/2024 BIOMETRY ----- BPD 82.0 mm 33w 0d 2% Hadlock OFD 112.7 mm 38w 2d 83% Dennis HC 311.9 mm 34w 6d 6% Hadlock AC 308.6 mm 34w 6d 29% Hadlock Femur 67.2 mm 34w 4d 15% Hadlock HC / AC 1.01 41% Nicolaides Weight Calculation: EFW 2,459 g 34w 3d 19% Hadlock EFW (lb,oz) 5 lb 7 oz EFW by Hadlock ([id number]) Head / Face / Neck Biometry: Sole Edge Inker Machine 5.2 mm Extremities / Bony Struc Biometry: FL / BPD 0.82 FL / HC 0.22 FL / AC 0.22 GENERAL EVALUATION ----- Cardiac activity present. FHR 134 bpm. movements: present. Presentation: cephalic Placenta: Placental site: posterior Umbilical cord: Cord vessels: 3 vessel cord. Insertion site: placental insertion: normal Amniotic fluid: Amount of AF: normal amount. MVP 3.1 cm. ISIDRA 10.8 cm. Q1 2.4 cm, Q2 2.4 cm, Q3 2.8 cm, Q4 3.1 cm ANATOMY ----- The following structures appear normal: Head / Neck Cranium. Lateral ventricles. Cavum septi pellucidi. Heart / Thorax RVOT view. LVOT view. Diaphragm. Abdomen Stomach. Kidneys. Bladder. GROWTH OVERVIEW ----- Exam date GA BPD (mm) HC (mm) AC (mm) FL (mm) HL (mm) EFW (g) 04/07/2024 21w 3d 47.1 9% 181.6 10% 162.4 39% 36.0 40% 33.5 44% 409 34% 07/17/2024 35w 6d 82.0 2% 311.9 6% 308.6 29% 67.2 15% 2,459 19% COMMENT ----- Patient's name and date of were verified by the ship's carpenter prior to the exam IMPRESSION ----- 1. Single living fetus with a gestational age of 35w 6d, based on the reported clinical dates. 2. Current growth parameters are consistent with the stated EDC. The size is appropriate for gestational age at 19% percentile (2459 g). 3. Unremarkable limited anatomy noted. A detailed anatomy cannot be performed secondary to advanced gestational age. However, there are no gross structural abnormalities noted. 4. The amniotic fluid is normal for gestational age (MVP:3.1 cm , ISIDRA:10.8 cm ). 5. Posterior placenta. No previa/not low-lying. 6. Cephalic presentation. Recommendations: - Further imaging as indicated. Thank you for allowing us to participate in the care of this patient. Procedure Note Sangita Raymond MD - 07/17/2024 STL FOLLOW UP ----- Pat. Name:aCrolyn ANDERSON Date:07/17/2024 8:13am Pat. NO: [id number] MD:GRANT STODDARD [facility]on RDMS :1990Age:34 ----- INDICATION ----- Maternal Care for Low Transverse Scar from Previous Delivery (Previous ) Screening Follow-Up CODING ----- Diagnoses Z3A.35: Weeks of gestation O34.211: Maternal care for low transverse scarfrom previous delivery Z36.3: Encounter for screening formalformations Z3A.35: Weeks of gestation Z36.2: Encounter for other screeningfollow-up Procedures 64300: Ultrasound, uterus, real time withimage documentation, follow up, transabdominal approach per fetus HISTORY ----- OB History 2. Para 1 METHOD ----- Transabdominal ultrasound examination ----- Conti . Number of fetuses: 1 DATING ----- Cycle:regular cycle GA by prior w + 6 d BALDOMERO by prior assessment:08/15/2024 Ultrasound examination on:07/17/2024 GA by U/S based upon:AC, BPD, EFW, Femur, HC GA by U/S34 w + 2 d BALDOMERO by U/S:08/26/2024 Method of dating:Restore dating from previous exam Assigned:based on stated BALDOMERO, selected on 04/07/2024 Assigned GA35 w + 6 d Assigned BALDOMERO:08/15/2024 BIOMETRY ----- BPD 82.0 mm 33w 0d 2%Hadlock OFD 112.7 mm 38w 2d 83%Dennis HC 311.9 mm 34w 6d 6%Hadlock AC 308.6 mm 34w 6d 29%Hadlock Femur 67.2 mm 34w 4d 15%Hadlock HC / AC 1.01 41%Nicolaides Weight Calculation: EFW 2,459 g 34w 3d19% Hadlock EFW (lb,oz) 5 lb 7 oz EFW by Hadlock ([id number]) Head / Face / Neck Biometry: Sole Edge Inker Machine 5.2mm Extremities / Bony Struc Biometry: FL / BPD 0.82 FL / HC 0.22 FL / AC 0.22 GENERAL EVALUATION ----- Cardiac activity present. FHR 134 bpm. movements: present.Presentation: cephalic Placenta: Placental site: posterior Umbilical cord: Cord vessels: 3 vessel cord. Insertion site: placentalinsertion: normal Amniotic fluid: Amount of AF: normal amount. MVP 3.1 cm. ISIDRA 10.8 cm. Q12.4 cm, Q2 2.4 cm, Q3 2.8 cm, Q4 3.1 cm ANATOMY ----- The following structures appear normal: Head / Neck Cranium. Lateral ventricles. Cavum septipellucidi. Heart / Thorax RVOT view. LVOT view. Diaphragm. Abdomen Stomach. Kidneys. Bladder. GROWTH OVERVIEW ----- Exam date GA BPD (mm) HC (mm) AC (mm) FL(mm) HL (mm) EFW (g) 04/07/2024 21w 3d 47.1 9% 181.6 10% 162.4 39%36.0 40% 33.5 44% 409 34% 07/17/2024 35w 6d 82.0 2% 311.9 6% 308.6 29%67.2 15% 2,459 19% COMMENT ----- Patient's name and date of were verified by the ship's carpenter prior tothe exam IMPRESSION ----- 1. Single living fetus with a gestational age of 35w 6d, based on thereported clinical dates. 2. Current growth parameters are consistent with the stated EDC. The fetalsize is appropriate for gestational age at 19% percentile (2459 g). 3. Unremarkable limited anatomy noted. A detailed anatomycannot be performed secondary to advanced gestational age. However, there are no gross structural abnormalities noted. 4. The amniotic fluid is normal for gestational age (MVP:3.1 cm , ISIDRA:10.8cm ). 5. Posterior placenta. No previa/not low-lying. 6. Cephalic presentation. Recommendations: - Further imaging as indicated. Thank you for allowing us to participate in the care of this patient. us Grant Stoddard MD ORDERABLES Final Result from Last 3 Months Insurance [facility] OPTIONS PPO [id number]
[2024-07-29 14:26] LABS: Total Triiodothyronine (T3) 1.62 NG/ML (0.97-1.69)
[2024-07-31 07:18] LABS: Thyroid Peroxidase Antibodies <1 IU/mL (<9)
== END 2024-07-29 08:08 | disposition home or self-care (01) ==
LOC: ANHGOSHLAB 08:10
PROVIDERS: Nurse Practitioner Obstetrics & Gynecology; Visit Provider Obstetrics & Gynecology
DX: Z86.39 Personal history of other endocrine, nutritional and metabolic disease (principal); Z3A.34 34 weeks gestation of pregnancy; R79.89 Other specified abnormal findings of blood chemistry
CPT/HCPCS: 36415; 84436; 84443; 84480; 86376

== ENCOUNTER 2024-08-15 08:13 | Outpatient (RCR) | payer OTHER, SELFPAY ==
[2024-06-14] MEDS: BETAMETHASONE SOD PHOS/ACETATE 30 MG/5 ML VIAL 12 MG IM (09:32)
[2024-06-15] MEDS: BETAMETHASONE SOD PHOS/ACETATE 30 MG/5 ML VIAL 12 MG IM (09:35)
--- NOTE | ~2024-08-15 | US_ITS ---
US OB limited 08/15/2024 09:48 Indication: Evaluate amniotic fluid index Procedure: High-resolution Limited obstetrical ultrasound Comparison: Ultrasound dated 05/30/2024 Findings: There is a single living intrauterine in vertex presentation. Placenta is fundal without previa. heart rate 151 BPM. Amniotic fluid volume is within normal limits measuring 8.3 cm (normal range for gestational age is 7.1-21.4 cm). Impression: 1: Normal ISIDRA measures 8.3 cm. Reviewed, dictated and finalized at location A. Impression: 1: Normal ISIDRA measures 8.3 cm.
[2024-08-15 09:51] VITALS: BP 117/71; PULSE 98
== END 2024-08-18 08:02 | disposition home or self-care (01) ==
LOC: ANHOBOP 08:13
PROVIDERS: Visit Provider Obstetrics & Gynecology
DX: O36.8990 Maternal care for other specified fetal problems, unspecified trimester, not applicable or unspecified (principal)
CPT/HCPCS: 59025; 76815; 96372; J0702

== ENCOUNTER 2024-08-17 14:58 | Inpatient (IN) | payer OTHER, SELFPAY ==
[2024-08-17] VITALS (84 sets, daily range): BP systolic 104–150; BP diastolic 61–82; PULSE 68–125; RESP 16; TEMP 36.3–36.9; O2SAT 95–100; BMI 32.3
--- OUTSIDE RECORDS SUMMARY | 2024-08-17 15:35 | XMS_ITS | Referral Summary ---
Author Organization [address] Address [address] [place] [address] Care Team Providers Care Apron Operator Name Role Phone Unknown, Notinfile Primary [...] Plan of Treatment Not on file Insurance [facility] Care Teams Apron Operator Relationship Specialty Start Date End Date Unknown, Notinfile PCP - General 01/17/24
--- OUTSIDE RECORDS SUMMARY | 2024-08-17 15:35 | XMS_ITS | Clinical Summary ---
Author Organization [email or web address] Mert corey [address] [place] [address] Phone Care Team Providers Care Real Estate Agent/Broker Name Role Phone Unavailable Primary Care Provider Unavailabl e Encounters Date Type Department Care Team Description 08/06/2024 External Device Data STL ABSTRACTION Provider, Abstract 08/06/2024 External Device Data STL ABSTRACTION Provider, Abstract 07/26/2024 External Device Data STL ABSTRACTION Provider, Abstract 07/25/2024 External Device Data STL ABSTRACTION Provider, Abstract 07/23/2024 External Device Data STL ABSTRACTION Provider, Abstract 07/17/2024 8:11 AM MECHANICAL MAINTENANCE TECHNICIAN - 07/17/2024 11:59 PM MECHANICAL MAINTENANCE TECHNICIAN Hospital Encounter [facility] Fabian Smith [address] [place] [phone] Grant Stoddard MD Discharge Disposition: Home [...] on file Legal Sex Female 8:48 AM MECHANICAL MAINTENANCE TECHNICIAN Gender Identity Not on file Sexual Orientation Not on file Plan of Treatment Health Maintenance Due Date Last Done Comments HEPATITIS B VACCINES (1 of 3 - 19+ 3-dose series) 2009 PAP SMEAR 2011 CERVICAL CANCER SCREENING 2020 HPV/Cotest (30-65) 2020 PAP SMEAR 2020 INFLUENZA VACCINE (#1) 2023 02/27/2019 DTAP/TDAP/TD VACCINES (2 - T d or Tdap) 12/04/2029 12/05/2019 HPV VACCINES Aged Out No longer curly guthrie based on patient's age to complete this topic Procedures Procedure Name Priority Date/Time Associated Diagnosis Comments US OB FOLLOW UP PER FETUS Routine 07/17/2024 8:38 AM MECHANICAL MAINTENANCE TECHNICIAN Encounter for anatomic survey from Last 3 Months Results * US OB FOLLOW UP PER FETUS (07/17/2024 8:38 AM MECHANICAL MAINTENANCE TECHNICIAN) Anatomical Region Laterality Modality Pelvis Ultrasound 07/17/2024 8:13 AM MECHANICAL MAINTENANCE TECHNICIAN Narrative 07/17/2024 8:41 AM MECHANICAL MAINTENANCE TECHNICIAN STL FOLLOW UP ----- Pat. Name: ARIELLA ANDERSON Study Date: 07/17/2024 8:13am Pat. NO: [id number] Referring MD: GRANT STODDARD MD Site: [facility] Designer: Cyndi Pinon RDMS : 1990 Age: 34 ----- INDICATION ----- Maternal Care for Low Transverse Scar from Previous Delivery (Previous ) Screening Follow-Up CODING ----- Diagnoses Z3A.35: Weeks of gestation O34.211: Maternal care for low transverse scar from previous delivery Z36.3: Encounter for screening for malformations Z3A.35: Weeks of gestation Z36.2: Encounter for other screening follow-up Procedures 29579: Ultrasound, uterus, real time with image documentation, [...] 5 lb 7 oz EFW by Hadlock ([id number]) Head / Face / Neck Biometry: Pick Pack Worker 5.2 mm Extremities / Bony Struc Biometry: [...] and date of were verified by the prime minister prior to the exam IMPRESSION ----- 1. [...] MD - 07/17/2024 STL FOLLOW UP ----- Kamini. Name:Carolyn ANDERSON Date:07/17/2024 8:13am Pat. NO: [id number] MD:GRANT STODDARD [facility]Cyndi Pinon RDMS :1990Age:34 ----- INDICATION ----- Maternal Care for Low Transverse Scar from Previous Delivery (Previous ) Screening Follow-Up CODING ----- Diagnoses Z3A.35: Weeks of gestation O34.211: Maternal care for low transverse scarfrom previous delivery Z36.3: Encounter for screening formalformations Z3A.35: Weeks of gestation Z36.2: Encounter for other screeningfollow-up Procedures 28294: Ultrasound, uterus, real time withimage documentation, follow up, transabdominal approach per fetus HISTORY ----- OB History 2. Para 1 METHOD ----- Transabdominal ultrasound examination ----- Conti . Number of fetuses: 1 DATING ----- Cycle:regular cycle GA by prior [id number] w + 6 d BALDOMERO by prior [...] 5 lb 7 oz EFW by Hadlock ([id number]) Head / Face / Neck Biometry: Pick Pack Worker 5.2mm Extremities / Bony Struc Biometry: FL [...] and date of were verified by the prime minister prior tothe exam IMPRESSION ----- 1. Single [...] of this patient. us Grant Stoddard MD US ORDERABLES Final Result from Last 3 Months Insurance [facility] OPTIONS PPO [id number] [place] [id number]
--- OUTSIDE RECORDS SUMMARY | 2024-08-17 15:35 | XMS_ITS | Clinical Summary ---
Author Organization [place] [address] [place] Address [address] [place] [address] Care Team Providers Care Palliative Care Nurse Name Role Phone Unknown, Notinfile Primary Care [...] patient's age to complete this topic Insurance Care Teams Palliative Care Nurse Relationship Specialty Start Date End Date Unknown, Notinfile PCP - General 01/17/24
--- OUTSIDE RECORDS SUMMARY | 2024-08-17 15:35 | XMS_ITS | Clinical Summary ---
Author Organization [facility] Address [address] [place] [address] Care Team Providers Care Tentering Machine Feeder Name Role Phone Unavailable Primary Care Provider Unavailabl e Source Comments [facility],non-owned Affiliates and Associated Physician Practices is amultiple site organization consisting of ambulatory clinics and hospital sitesin [place], [place], [place] and [place]. This disclosure is being madepursuant to the Care Everywhere program and may not contain all information available regarding this patient. Last updated 18.[facility] Bumpr Allergies No known active allergies Immunizations Name [...] to complete this topic MENINGOCOCCAL (Group B) VACC INE SHARED DECISION-MAKING Aged Out No longer eligibl e based on patient's age to complete this topic MENINGOCOCCAL GROUPS A/C/Y/W VACCINE Aged Out No longer eligible b ased on patient's age to complete this topic PNEUMOCOCCAL VACCINE Aged Out No long er eligible based on patient's age to complete this topic CAMRYN ANDERSON Personal/Family [address] [place] [address] CAMRYN ANDERSON Personal/Family [address] [place] [address] CAMRYN ANDERSON Personal/Family [address] [place] [address]
--- OUTSIDE RECORDS SUMMARY | 2024-08-17 15:35 | XMS_ITS | Data Portability ---
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 She voiced understanding of plan and agrees She will e-mail me her recent lab results on the portal [employer] Not available 02/16/2023 12:34:42 Plan of Treatment Reminders Order Date Submit Date Provider Last Modified By Organization Details Last Modified Time Details Appointments None recorded. Lab None recorded. Referral general surgeon referral - discuss umb hernia repair- now vs after next 2022 023 MICAELA Mendoza MD, [address] [place] [address] [address], [place], [address], 3 13:31:06 Procedures None recorded. Surgeries None [...] Address Organization Details Recorded Time Umbilical hernia 193965543 Active 023 GALI Mota [address] [facility], [address], [place], [address] , [facility] 3 11:44:16 Cyst of thyroid 81627999 Active 023 GALI Mota [address] [facility], [address], [place], [address], [facility] Actions [facility] 3 12:32:58 Diastasis recti 58077362 Active 023 Marizol Stern, [facility] [address], [address], [place], [address], [facility] Actions [facility] 3 12:34:53 Problem Notes None recorded. Procedures Surgical History Date Name Laterality Status Provider Name and Address Organization Details Recorded Time 0 puncture and aspiration of cyst completed Not Available [facility] 07/19/2022 04:42:08 9 puncture and aspiration of cyst completed Not Available [facility] 07/19/2022 04:42:08 section completed MYNOR Samuels [facility] 02/16/2023 11:39:40 Imaging Results None recorded. 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 1 T PO QD 07/20 completed Not Available Not Available Not Available Vitals Date Recorded Body weight Body mass index (BMI) Body height Body temperature Heart rate Systolic blood pressure Diastolic blood pressure Provider Name and Address Organization Details Last Updated DateTime 3 76847.5 6 g 26.3 kg/m2 167.64 cm 98.7 [degF] 72 /min 116 mm[Hg] 80 mm[Hg] MYNOR Samuels [facility] 3 11:41:31 Social History Question Answer Notes LastModified by Organizat ion Details LastModified Time Tobacco Smoking Status Never Smoker Not Available [facility] 07/19/2022 04:34:13 Do You Have An Advance Directive? No MIGRATION.[id number] Information not available 07/19/2022 What Is Your Level Of Alcohol Consumption? Occasional MIGRATION.44697 [id number] Information not available 07/19/2022 Is Blood Transfusion Acceptable In An Emergency? Yes [email or web address] Information not available 02/16/2023 What Is Your Level Of Caffeine Consumption? Moderate MIGRATION.77452 64873 Information not available 07/19/2022 How Much Tobacco Do You Chew? None MIGRATION.55336 69403 Information not available 07/19/2022 In The 14 Days Before Symptom Onset, Have You Had Close Contact With A Laboratory-confi rmed COVID-19 While That Case Was Ill? No MIGRATION.83062 36067 Information not available 07/19/2022 In The 14 Days Before Symptom Onset, Have You Had Close Contact With A Person Who Is Under Investigation For COVID-19 While That Person Was Ill? No MIGRATION.62058 04638 Information not available 07/19/2022 Are You Currently Employed? Yes [email or web address] Information not available 02/16/2023 What Type Of Diet Are You Following? REGULAR Information not available 02/16/2023 Which Illicit Or Recreational Drugs Have You Used? None MIGRATION.02848 51355 Information not available 07/19/2022 What Is The Highest Grade Or Level Of School You Have Completed Or The Highest Degree You Have Received? 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 No [email or web address] Information not available 02/16/2023 Are There Any Guns Present In Your Home? Yes MIGRATION.28790 17191 Information not available 07/19/2022 Do You Use Insect Repellent Routinely? No [email or web address] Information not available 02/16/2023 Where Do You Live? SingleLevelHouse [email or web address] Information not available 02/16/2023 Do You Have A Medical Power Of Harvest Worker? No [email or web address] Information not available 02/16/2023 What Was The Date Of Your Most Recent Tobacco Screening? 02/16/2023 Information not available 02/16/2023 How Many Children Do You Have? 2 Information not available 02/16/2023 Do You Have Any Pets? Yes [email or web address] Information not available 02/16/2023 What Is Your Relationship Status? [email or web address] Information not available 02/16/2023 Do You Use Your Seat Belt Or Car Seat Routinely? Yes [email or web address] Information not available 02/16/2023 Do You Have Smoke And Carbon Monoxide Detectors In Your Home? Yes [email or web address] Information not available 02/16/2023 Are You Passively Exposed To Smoke? No [email or web address] Information not available 02/16/2023 Are There Any Smokers In Your House? No Information not available 02/16/2023 How Much Tobacco Do You Smoke? No MIGRATION.30483 33936 Information not available 07/19/2022 Do You Feel Stressed (tense, Restless, Nervous, Or Anxious, Or Unable To Sleep At Night)? [id number] [email or web address] Information not available 02/16/2023 Do You Use Any Illicit Or Recreational Drugs? No [email or web address] Information not available 02/16/2023 Do You Use Sunscreen Routinely? Yes MIGRATION.09853 85407 Information not available 07/19/2022 How Many Years Have You Smoked Tobacco? 0 MIGRATION.26139 80228 Information not available 07/19/2022 Have You Recently Traveled Abroad? No [email or web address] Information not available 02/16/2023 Do You Have Any Dietary Restrictions? No [email or web address] Information not available 02/16/2023 Do You Or Have You Ever Used Any Other Forms Of Tobacco Or Nicotine? No [email or web address] Information not available 02/16/2023 Sex: Female Functional Status Question Answer Note LastModified by Organization D etails LastModified Time What is your exercise level? Moderate [email or web address] Information not available 02/16/2023 Mental Status None recorded. Family History Relationship Description Onset Age of this Age Resolved Age Notes LastModified by Organization Details LastModified Time Mother Family history of breast cancer MIGRATION.120 [id number] Not available 07/19/2022 04:42:14 Maternal Grandmother Family history of breast cancer MIGRATION.272 [id number] Not available 07/19/2022 04:42:14 Paternal Grandmother Hypercholest erolemia MIGRATION.575 [id number] Not available 07/19/2022 04:42:14 Medical History Condition [...] INSOMNIA N HIGH CHOLESTEROL / HYPERLIPIDEMIA Y EYE PROBLEMS N HYPERTHYROIDISM N EDEMA N CHRONIC PAIN SYNDROME N [...] N ALZHEIMER'S DISEASE N Brain Problems N DEMENTIA N HERPES N SEIZURES/EPILEPSY N HEADACHES/MIGRAINES N VASCULAR DISEASE N PACEMAKER N Blood Disorder N DIZZINESS N HEART DISEASE/HEART PROBLEMS N KIDNEY DISEASE N MULTIPLE SCLEROSIS N CANCER: SPECIFY N CARDIAC ARRHYTHMIA N ATRIAL FIBRILLATION N Gall Stones N PULMONARY EMBOLISM N AUTOIMMUNE DISEASE N Gynecological History Statement/Question Response Abnormal Pap N Date of Last Pap 11/28/2017 Obstetrics History GPAL:G 1 P 0 0 0 0 Immunizations Vaccine Type Date Status Note Provider Ramiro scott and Address Organization Details Recorded Time Influenza, split virus, quadrivalent, preservative 9 completed Not Available [facility] 07/19/2022 05:04:36 Past Encounters Encounter ID Performer Location Encounter Start Date Encounter Closed Date Diagnosis/Indication Diagnosis SNOMED-CT Code Diagnosis ICD10 Code Diagnosis Note [id number] GALI Mota S_GMG Internal Med [facility] [address] [facility], [address] [place] [address] 02/16/2023 11:29:46 02/16/2023 13:59:48 Umbilical hernia 642321627 K42.9 Get appt with surgeon to discuss- Dr. Martin also may want to have her diastasis repaired at the same time, will get her referred to a surgeon who also works with the plastic surgeon to see if this can all be done during the same surgery (Dr. Sánchez)E R precaution s Cyst of thyroid 24729935 E04.1 follows ENT- Dr. Salvador Kate will call to get reschedule d for her missed appt Diet education 36491872 Z71.3 recommend healthy, well balanced mealsfocus on [...] to incorporat e into diet Diastasis recti 50529927 M62.08 as above Health Concerns Section Related Observation LastModified by Organization Detai ls LastModified Time None Recorded Concern Status LastModified by Organization Details LastModified Time None Recorded Advance Directives Directive N: Payers Encounter Date Sequence Insurance Name Policy Number Policy Pryor Covered Member ID Pryor Member ID Guarantor Name 02/16/[address] [facility] [id number] Ariella Anderson [id number] Ariella Anderson Notes Date Note Type Note [...] on the portal. Marizol Stern, MIKE-C [address] [facility], [facility] [address], [place], [address], [facility] 02/16/2023 12:35:13 OBGyn Episode No OBEpisode recorded.
[2024-08-17] MEDS: LACTATED RINGERS 1,000 ML 125 ML IV CONT ×2 (16:10→17:15)
[2024-08-17 16:19] LABS: Basophils Absolute Auto 0.1 K/mm3 (0.0-0.1); Basophils Percent Auto 0.3 % (0.2-1.2); Eosinophils Percent Auto 0.2 % (0-4.4); Hematocrit 37.6 % (37.0-47.0); Hemoglobin 13.1 g/dL (12.0-15.0); Immature Granulocyte Absolute 0.25 K/mm3 (0.00-0.031); Immature Granulocyte Percent A 1.4 % (0-0.5); Lymphocytes Absolute Auto 2.85 K/mm3 (0.9-3.2); Lymphocytes Percent Auto 15.5 % (18.3-44.2); Mean Corpuscular HGB Conc 34.8 g/dl (32-36); Mean Corpuscular Hemoglobin 31.2 pg (26-34); Mean Corpuscular Volume 89.5 fl (80-100); Mean Platelet Volume 11.1 fl (7.4-10.4); Monocytes Absolute Auto 1.4 K/mm3 (0.1-0.6); Monocytes Percent Auto 7.5 % (2.6-8.5); Neutrophils Absolute Auto 13.9 K/mm3 (1.3-6.7); Neutrophils Percent Auto 75.1 % (45.5-73.1); Platelet Count Result 175 k/mm3 (150-375); Red Cell Distribution Width 13.5 % (11.5-14.5); White Blood Count 18.4 K/mm3 (4.5-10.0)
--- NOTE | 2024-08-17 16:19 | LDADM ---
This patient, Ariella Anderson, was admitted to Labor/Delivery/Recovery 102 on 08/17/24 at 14:58. Plans for labor, pain management and were discussed with patient. Patient/family oriented to hospital policies and general routines including ID bracelet, bed and alarms, visiting hours, pain management, procedures, bathroom and other care routines, personal items, smoking policy, room service/diet and guest tray routines, security routines, and visiting hours. Patient/Family are encouraged to report perceived risks to care and to ask questions if they do not understand what they are told or what they should do. See OBIX for further documentation.
--- NOTE | 2024-08-17 16:42 | WPDANESEPP ---
Anes - Eval Pre Procedure Procedure: Labor Pain Management Date/Time: 08/17/24 16:42 Surgeon: Rubi Preop Diagnosis: Pain During Labor Pre Op Diagnosis: Contractions Patient Data Age: 34 Gender: F Height: 1.68 m Weight: 91 kg Last Vital Signs Pulse 85 08/17/24 16:30 BP 121/77 08/17/24 16:30 O2 Del Method Room Air 08/17/24 16:17 Allergies Allergy/AdvReac Type Severity Reaction Status Date / Time No Known Allergies Allergy Verified 08/15/24 08:29 Home Medications ?Medication ?Instructions ?Recorded ?Confirmed ?Type omega 8-cwg-mvs-fish oil 100 1 cap PO DAILY 12/28/23 08/17/24 History mg-160 mg-1,000 mg capsule (Fish Oil) no.118-ferrous fumarate 1 tablet PO DAILY #90 tabs 03/05/24 08/17/24 Rx 29 mg-folic acid 1 mg chewable tablet (Se- 19 Chewable) Lactobacillus rhamnosus GG 10 cap PO DAILY 08/17/24 History billion cell-inulin 200 mg capsule ([facility] [address] [facility]) Laboratory Tests 08/17/24 16:04 WBC 18.4 H K/mm3 (4.5-10.0) RBC 4.20 M/mm3 (4.2-5.4) Hgb 13.1 g/dL (12.0-15.0) Hct 37.6 % (37.0-47.0) MCV 89.5 fl (80-100) MCH 31.2 pg (26-34) MCHC 34.8 g/dl (32-36) RDW 13.5 % (11.5-14.5) Plt Count 175 k/mm3 (150-375) MPV 11.1 H fl (7.4-10.4) Immature Gran % (Auto) 1.4 H % (0-0.5) Neut % (Auto) 75.1 H % (45.5-73.1) Lymph % (Auto) 15.5 L % (18.3-44.2) [place] % (Auto) 7.5 % (2.6-8.5) Eos % (Auto) 0.2 % (0-4.4) Baso % (Auto) 0.3 % (0.2-1.2) Lymph # (Auto) 2.85 K/mm3 (0.9-3.2) [place] # (Auto) 1.4 H K/mm3 (0.1-0.6) Eos # (Auto) 0.0 K/mm3 (0-0.3) Baso # (Auto) 0.1 K/mm3 (0.0-0.1) Abs Immat Gran (auto) 0.25 H K/mm3 (0.00-0.031) Absolute Neuts (auto) 13.9 H K/mm3 (1.3-6.7) Absolute Nucleated RBC 0.000 K/mm3 (0.0-0.012) Nucleated RBC % 0.0 % (0.0-0.2) HIV 1&2 Ab/P24 Ag 4thGn Pending Patient hx anesthesia problems: none Family hx anesthesia problems: none Results Review: All pre-operative results and documents have been reviewed as part of the pre-operative evaluation. [facility] Past Medical History Medical History Vaginal delivery Ovarian cyst Encounter for supervision of normal first , first trimester Surgical History Surgical History H/O partial thyroidectomy Previous section x1 [place] teeth removed S/P thyroid biopsy Family History Family History Father Family history of hypercholesterolemia Grandparent Family history of malignant neoplasm of breast Mother Family history of malignant neoplasm of breast in first degree relative Social History Social History Smoking status: Never smoker Alcohol intake: current Drinks per week: 1 Substance use: never Do You Feel Safe in your Home?: Yes Lack of Transportation: No Lack of Food: Never True Current Housing: I Have Housing Concerned About Future Housing: No Difficulty Paying Gas/Electric Bills: No Difficulty Paying for Meds: No Currently Unemployed: No Education: Master's Degree or Higher Difficulty w/ Childcare or Family Care: No Living arrangements: with family Gender identity (if verbalized by the patient): Female Spiritual care concerns: No Exam Day of Procedure 08/17/24 16:42
[2024-08-17 17:04] LABS: Syphilis IgG/IgM Antibody Negative (Negative)
[2024-08-17 17:09] LABS: HIV 1/2 Ab P24 Ag Result Negative (Negative)
--- NOTE | 2024-08-17 17:26 | WPDHPUPDATE1 ---
History and Physical Update Update Date/Time: 08/17/24 17:26 34 yo who presents at 40w2d after SROM. She reports leakage of fluid at 12:00. is complicated by prior x1 in her G1 due to malpresentation. She had a successful in her G2. Pt also has hypothyroidism on levothyroxine. Patient also had an episode of labor earlier this and received betamethasone for lung maturity. History and Physical has been reviewed, including an updated exam of the patient. There are NO changes in the patient's condition. Risks, benefits, and alternatives have been discussed and questions answered. Patient agrees to proceed with procedure. A/P: admit to L&D routine admission orders Rh negative, will need rhogam PP GBS negative continuous EFM epidural PRN will place IUPC will augment with pitocin as needed
[2024-08-17 18:22] LABS: OBXCEM ROM Plus Positive (Negative)
--- NOTE | 2024-08-17 20:08 | PM.OBPRVD ---
OB - Vaginal Delivery Note Procedure Delivery date: 08/18/24 Events: Previous Delivery and Other (prior successful ) Induction method: None Delivery monitor: External FHT and Internal Uterine Route of delivery: Episiotomy description: None Laceration Description: Perineal - 2nd Degree Delivery repair: vicryl (3.0 vicryl) Specimen: No Quantitative Blood Loss (ml): 150 Anesthesia type: Epidural Disposition: Floor Complications: No immediate complications Narrative: She was admitted for SROM, early labor. She progressed into active labor. She had an uncomplicated vaginal delivery. Infant delivered in the YVETTE presentation. The nose and mouth suctioned at perineum with bulb. The anterior shoulders were delivered with gentle traction and the rest of delivered. was vigorously crying and placed on maternal abdomen. Delayed cord clamping for one minute and then the long cord doubly clamped and cut. Cord blood and cord gases obtained. Pitocin started. Placenta delivered spontaneously and intact. She sustained a second degree laceration repaired with 3.0 vicryl. She tolerated procedure well. EBL 150cc. Baby Date of : 08/17/24 Time of : 17:40 Gestational Age by Date: 40 gender: Female presentation: vertex position: Left Occiput Anterior Cord Vessel Description: 3 Vessels score one minute: 9 score five minutes: 9
--- NOTE | 2024-08-17 22:05 | PC.NURSE ---
pitocin started at 194 999 bag at 2004 second bag of pitocin 125 bag
--- NOTE | 2024-08-17 22:22 | OBPPTRN ---
Patient transferred to post room #281 via wheelchair. Support person present. Oriented to unit, room, information board, rooming in, admission packet and security measures. Patient verbalizes understanding.
[2024-08-17] MEDS: WITCH HAZEL 40 PADS 1 PAD TOPICAL (22:54)
[2024-08-17] MEDS: BENZOCAINE 20% AER SPR (*SP) 56 GM CAN 1 SPRAY TOPICAL (22:54)
[2024-08-18 04:39] VITALS: BP 109/72; PULSE 82; RESP 16; TEMP 36.4; O2SAT 96
[2024-08-18 05:05] LABS: Hematocrit 35.7 % (37.0-47.0); Hemoglobin 12.2 g/dL (12.0-15.0)
[2024-08-18 07:35] VITALS: BP 124/69; PULSE 73; RESP 16; TEMP 36.8; O2SAT 99
--- NOTE | 2024-08-18 08:05 | PC.NURSE ---
Patient expressed feeding concerns to primary RN. Patient is worried that her left breast is not producing as much because baby is not feeding as well from the left side. She has a history of a slightly lower production from the left breast and pumped that side occasionally while her last baby. Her first baby was exclusively bottle fed with pumped milk. She has baby latched to the left breast. She has fed for 15 minutes already and baby appears sleepy but does have a good latch. Mom switched baby to the right breast and feels that baby is more active on this side. We heard swallowing during this feeding. Advised mom that as long as baby is stimulating the left nipple regularly, there is no need to pump unless mom feels that she desires to. Mom worried that baby isn't sucking nutritively on that breast. Encouraged mom that due to her not being induced this delivery, baby probably has less fluid to start with and may not have as many wet diapers as her other babies that were induced. Mom seems a little less anxious after we talked but will need reinforcement. RN updated.
--- NOTE | 2024-08-18 08:28 | P.PNOB_ITS ---
OB - PN: Subj Subjective Date/time seen: 08/18/24 08:28 PP day 1 Doing well. Pain is well controlled. Bleeding okay. Ambulating prn. and bonding with infant. Patient comments: no complaints and pain well controlled baby status: doing well and nursing well [place] feeding status: exclusively breast feeding OB - PN: Obj Data Labs 08/18/24 04:34 Labs: Laboratory Results - last 24 hr 08/17/24 08/17/24 08/18/24 15:30 16:04 04:34 WBC 18.4 H RBC 4.20 Hgb 13.1 12.2 Hct 37.6 35.7 L MCV 89.5 MCH 31.2 MCHC 34.8 RDW 13.5 Plt Count 175 MPV 11.1 H Immature Gran % (Auto) 1.4 H Neut % (Auto) 75.1 H Lymph % (Auto) 15.5 L Marion % (Auto) 7.5 Eos % (Auto) 0.2 Baso % (Auto) 0.3 Lymph # (Auto) 2.85 Marion # (Auto) 1.4 H Eos # (Auto) 0.0 Baso # (Auto) 0.1 Abs Immat Gran (auto) 0.25 H Absolute Neuts (auto) 13.9 H Absolute Nucleated RBC 0.000 Nucleated RBC % 0.0 Membranes Rupture Rom plus positive Syphilis IgG/IgM Ab Negative HIV 1&2 Ab/P24 Ag 4thGn Negative Blood Type O Negative O Negative Antibody Screen Negative TNP OB - PN A/P Assessment and Plan (1) Vaginal after (): Code(s): O34.219 - Maternal care for unspecified type scar from previous delivery Status: Acute Assessment and Plan: PP day 1 Doing well. Plan home tomorrow. Plan Plan: routine care Time Spent With Patient Time: Total time spent is greater than 50% in coordination of care (as documented) at patient's floor/unit and/or counseling patient: Review of Systems 2 Review of Systems: All systems reviewed & are unremarkable except as noted in HPI and below Constitutional: Constitutional: Denies chills and Denies fever(s) Respiratory: Respiratory: Denies dyspnea Gastrointestinal: Gastrointestinal: Denies abdominal pain Genitourinary: Genitourinary: Denies dysuria Exam 2 Const: General: cooperative and comfortable Orientation/consciousness: p atient oriented x3 Resp: Effort & Inspection: normal respiratory effort and able to speak in complete sentences Cardio: Rate: regular rate Rhythm: regular rhythm GI: Inspection: normal to inspection GI Palp: No abdominal tenderness O ther: Fundus palpated below U. Non tender Skin: General skin exam: normal color Extrem: General: normal to inspection, full ROM and no calf tenderness
[2024-08-18] MEDS: IBUPROFEN SUSPENSION 200 MG/10 ML UDC 600 MG PO ×2 (08:59→20:14)
[2024-08-18] MEDS: RHO(D) IMMUNE GLOBULIN 300 MCG/2 ML SYRINGE IM (10:40)
--- NOTE | 2024-08-18 10:41 | WPDANLDPN2 ---
Anes-Prog Note L&D Date/Time: 08/18/24 10:41 Comfortable throughout: labor and delivery Neuraxial method: epidural Epidural/Spinal procedure site: clean & non-tender Neuro status: Neuro function grossly intact. Cardiovascular status: normal Respiratory status: normal Airway patency: baseline Mental status: baseline Post-Op hydration status: normal Vital Signs: Last Vital Signs Temp 36.8 C 08/18/24 07:35 Pulse 73 08/18/24 07:35 Resp 16 08/18/24 07:35 BP 124/69 08/18/24 07:35 Pulse Ox 99 08/18/24 07:35 O2 Del Method Room Air 08/18/24 09:00 Pain score (VAS): 0/10 I/O: Intake & Output 08/17/24 08/18/24 08/18/24 23:59 07:59 15:59 Intake Total 1000 240 Output Total 100 Balance 900 240 Post-procedural complaints: none Patient feedback: Patient satisfied with anesthetic care.
--- NOTE | 2024-08-18 12:00 | PC.NURSE ---
Mom latched baby independently to both breasts with an optimal appearing latch. Baby tends to roll her lip in on the right breast but doesn't seem to have that issue on the left. Mom shown how to pull on baby's chin to release the lower lip. The positioning of the nipple on the right breast causes a little latching difficulty for mom and the nipple is sometimes creased and white on the tip when baby comes off. We discussed that trying an alternative position such as football could be beneficial for a deeper latch. Mom is reluctant to try other positions because she is most comfortable with cross cradle and did not like football with her other children. Patient is supported to choose whatever position is most comfortable and works best for her, with education provided on why alternating positions could be helpful. Baby sucks with good bursts and then has periods of nonnutritive sucking. Mom is very concerned about how many swallows baby has and that she isn't nursing consistently with a suck swallow pattern like an older baby might. Mom is waking baby to feed every 2 hours and we reviewed that baby may feed more aggressively if she waits closer to 3 hours before waking baby. We discussed normal behavior in the first few days of life. Encouraged mom that baby is doing exactly what she needs to at this point and that if there is any concern from a medical standpoint that we believe supplementation is necessary, we will discuss that when the time comes. Mom seems anxious still and needs education reinforced and support/encouragement for confidence in her ability to successfully breastfeed. Updated RN.
[2024-08-18 12:21] VITALS: BP 109/75; PULSE 78; RESP 16; TEMP 36.6; O2SAT 97
[2024-08-18 16:30] VITALS: BP 102/69; PULSE 71; RESP 18; TEMP 36.9; O2SAT 100
[2024-08-18 20:10] VITALS: BP 112/61; PULSE 83; RESP 16; TEMP 36.3; O2SAT 99
[2024-08-19 07:20] VITALS: BP 107/76; PULSE 72; RESP 16; TEMP 36.5; O2SAT 99
--- NOTE | 2024-08-19 08:10 | PM.OBDSVD ---
DS: Admitting Diagnosis Discharge Date 08/19/24 Admitting Diagnosis Labor Spontaneous rupture or membranes DS: Discharge Diagnosis Discharge Diagnosis (1) Vaginal after delivery: Code(s): O34.219 - Maternal care for unspecified type scar from previous delivery Status: Acute OB - DS: Summary Hospital Course Hospital Course: She was admitted with SROM and early labor. She progressed to active labor and had an uncomplicated vaginal . She did well . She was discharged to home on day 2. OB Procedures : Ultrasound OB Procedures Intrapartum: OB Procedures: : None Peripartum Data Delivery Method: Natural Vaginal Laceration Description: Perineal - 2nd Degree Episiotomy description: None complications: none Status at Discharge Functional status at discharge: independent ambulation Time Spent with Patient Time attestation: Total time spent providing and/or coordinating discharge services: Exam Const: General: cooperative Orientation/consciousness: oriented to person, oriented to place and oriented to time HENMT: Face/Nose/Sinus: Normal external nose present Eyes: General: appearance normal, both eyes and all related structures Resp: Effort & Inspection: normal respiratory effort GI: Inspection: normal to inspection Skin: General skin exam: normal color Neuro: General: oriented to person, oriented to place and oriented to time Extrem: General: normal to inspection and no calf tenderness Psych: Appearance: grossly normal Mental Status: mental status grossly normal DS: Data Data Completed and Pending Labs on day of discharge: Labs from last 24 hours 08/18/24 04:34 Blood Type O Negative Antibody Screen TNP Screen Negative Baby's Blood Type A pos Baby's VISHNU Positive Doses of RhIg Required 1 Discharge Plan Discharge Attending physician on discharge: Grant Venegas Consulting providers: Lola Knight Discharging Clinician: Grant Venegas Anticipated Discharge Date/Time: 08/19/24 08:09 Patient Disposition: Home, Self-Care Activity: may shower, no straining and pelvic rest Diet: regular Patient Instructions: Antibiotic Form Patient Language: Mohawk Stand Alone Forms: General Discharge Information Follow-up/Referrals: Grant Venegas MD [Physician] - Call for Appointment Discharge Medications: No Action Fish Oil 100-160-1,000 mg capsule 1 cap PO DAILY Se- 19 Chewable 29 mg iron- 1 mg tablet,chewable 1 tablet PO DAILY Qty: 90 2RF [facility] 10 billion cell -200 mg capsule PO DAILY Date of admission: 08/17/24 14:58 Primary Care Provider: UNKNOWN,DOCTOR Admitting Provider: Grant Venegas Attending physician on admission: Grant Venegas Condition: Stable
--- NOTE | 2024-08-19 08:30 | PC.NURSE ---
Consulted with mother concerning needs and she shared her ability to independently latch infant optimally. She has some soreness and latch on tenderness especially on the right nipple. There is no visible nipple skin breakdown or trauma. Mother has a history of a partial thyroidectomy. She is not taking any medications currently and reports that her most recent thyroid panel indicated that her levels were within normal limits. Mom aware this could affect milk production and will bear this in mind if she doesn't have breast fullness by day 4-5. Mother is feeding appropriately for growth of infant and understands stimulating infant to eat if needed. Infant has had appropriate feedings in the last 24 hours meets the outcomes for weight, output, blood sugar and jaundice at this time. Reinforced understanding of milk production, transition of milk, signs of adequate intake, transition of stool, prevention/relief of engorgement, plugged ducts, mastitis, responsive , community resources, and when to call a provider using the resource of the feeding sheet along with the mom and baby guide. Mother voiced understanding of the information shared, is confident to continue effectively her at home, when to call for assistance, denies any additional assistance or education at this time. Reported to the Primary RN.
[2024-08-20 11:55] VITALS: BP 117/71; PULSE 82; RESP 18; TEMP 36.6; O2SAT 98
== END 2024-08-19 10:30 | disposition home or self-care (01) | DRG 807 ==
LOC: ANHLDR 19:11 → ANHOB2 22:32
PROVIDERS: Student in an Organized Health Care Education/Training Program; Admitting Provider Obstetrics & Gynecology; Visit Provider Obstetrics & Gynecology
DX: O62.3 Precipitate labor (principal); Z37.0 Single live birth; Z3A.40 40 weeks gestation of pregnancy; O34.211 Maternal care for low transverse scar from previous cesarean delivery; O70.1 Second degree perineal laceration during delivery; O99.284 Endocrine, nutritional and metabolic diseases complicating childbirth; E03.9 Hypothyroidism, unspecified; O26.893 Other specified pregnancy related conditions, third trimester; Z67.91 Unspecified blood type, Rh negative
CPT/HCPCS: 36415; 84112; 85014; 85018; 85025; 85461; 86593; 86703; 86850; 86900; 86901; 90384; A9270; G0432; J2790; J2795; J7120

== ENCOUNTER 2024-10-08 07:57 | Outpatient (CLI) | payer OTHER, SELFPAY ==
--- OUTSIDE RECORDS SUMMARY | 2024-10-08 08:44 | XMS_ITS | Clinical Summary ---
Author Organization [facility] Address [address] [place] [address] Care Team Providers Care Mortgage Sales Manager Name Role Phone Unavailable Primary Care Provider Unavailabl e Source Comments [facility],non-owned Affiliates and Associated Physician Practices is amultiple site organization consisting of ambulatory clinics and hospital sitesin [place], [place], [place] and [place]. This disclosure is being madepursuant to the Care Everywhere program and may not contain all information available regarding this patient. Last updated 18.[facility] [place] Allergies No known active allergies Immunizations Immunization Administration Dates Next Due TDAP (7yrs+) 12/05/2019 Social History Tobacco Use Types Packs/Day Years Used Date Smoking Tobacco: Never Assessed Comments Unknown Sex and Gender Information Value Date Recorded Sex Assigned at Not on file Legal Sex Female 11:09 AM CDT Gender Identity Not on file Sexual Orientation Not on file Plan of Treatment Health Maintenance Due Date Last Done Comments PAP SMEAR 1990 HIV SCREENING 2005 HEPATITIS C SCREENING 05/26/2008 HEPATITIS B VACCINE (1 of 3 - 19+ 3-dose series) 2009 COVID-19 VACCINE ( - 2023-2 5 season) 2024 DEPRESSION SCREENING 05/21/2024 INFLUENZA VACCINE (Season Ended) 2025 02/28/20 19 DTAP/TDAP/TD VACCINES (2 - T d or [...] patient's age to complete this topic Insurance [facility] * Guarantor: ARIELLA ANDERSON Account Type Relation to Patient Date of Phone Billing Address Personal/Family [address] [place] [address] [facility] CARE SELF PAY NO INSURANCE Member Subscriber Plan / Payer (Ef fective for All Dates) Name:AndersonAriella Member ID:Not on file Relation to Subscriber:Not on file Name:ARIELLA ANDERSON Subscriber ID:Not on file Address: [address] [place] [address] Payer ID:Not on file Group ID:Not on file Type:Self Pay Address: [place], [place] * Guarantor: ARIELLA ANDERSON Account Type Relation to Patient Date of Phone Billing Address Personal/Family [address] [place] [address] [facility] CARE SELF PAY NO INSURANCE Member Subscriber Plan / Payer (Ef fective for All Dates) Name:Manny Andersonin Member ID:Not on file Relation to Subscriber:Not on file Name:ARIELLA ANDERSON Subscriber ID:Not on file Address: [address] [place] [address] Payer ID:Not on file Group ID:Not on file Type:Self Pay Address: [place], [place] * Guarantor: ARIELLA ANDERSON Account Type Relation to Patient Date of Phone Billing Address Personal/Family [address] [place] [address] [facility] SELF PAY NO INSURANCE Member Subscriber Plan / Payer (Ef fective for All Dates) Name:AndersonAriella Member ID:Not on file Relation to Subscriber:Not on file Name:ARIELLA ANDERSON Subscriber ID:Not on file Address: [address] [place] [address] Payer ID:Not on file Group ID:Not on file Type:Self Pay Address: [place], [place]
--- OUTSIDE RECORDS SUMMARY | 2024-10-08 08:45 | XMS_ITS | Referral Summary ---
Author Organization [address] Address [address] [place] [phone] Care Team Providers Care Educational Administrator Name Role Phone Unknown, Notinfile Primary Care [...] Plan of Treatment Not on file Insurance [facility] Care Teams Educational Administrator Relationship Specialty Start Date End Date Unknown, Notinfile PCP - General 01/17/24
--- OUTSIDE RECORDS SUMMARY | 2024-10-08 08:45 | XMS_ITS | Clinical Summary ---
Author Organization [facility] [address] [place] [phone] Phone Care Team Providers Care Director Of Cardiology Service Line Name Role Phone Unavailable Primary Care Provider Unavailabl e Encounters Date Type Department Care Team Description 09/02/2024 External Device Data STL ABSTRACTION Provider, Abstract 08/06/2024 External Device Data [facility] ABSTRACTION Provider, Abstract 08/06/2024 External Device Data [facility] ABSTRACTION Provider, Abstract 07/26/2024 External Device Data [facility] ABSTRACTION Provider, Abstract 07/25/2024 External Device Data ST[facility] ABSTRACTION Provider, Abstract 07/23/2024 External Device Data STL ABSTRACTION Provider, Abstract 07/17/2024 8:11 AM SOLE POLISHER - 07/17/2024 11:59 PM SOLE POLISHER Hospital Encounter [facility] Maternal and [facility] [address] Smith [address] [place] [phone] Grant Stoddard MD Discharge Disposition: Home or Self Care from Last 3 Months Social History Tobacco Use Types Packs/Day Years Used Date Smoking Tobacco: Never Assessed Comments Unknown Sex and Gender Information Value Date Recorded Sex Assigned at Not on file Legal Sex Female 8:48 AM SOLE POLISHER Gender Identity Not on file Sexual Orientation Not on file Plan of Treatment Health Maintenance Due Date Last Done Comments HEPATITIS B VACCINES (1 of 3 - 19+ 3-dose series) 2009 HPV/Cotest (21-29) 2011 CERVICAL CANCER SCREENING 2020 HPV/Cotest (30-65) 2020 PAP SMEAR 2020 INFLUENZA VACCINE (#1) 2023 02/27/2019 DTAP/TDAP/TD VACCINES (2 - T d or Tdap) 12/04/2029 12/05/2019 HPV VACCINES Aged Out No longer curly jerri based on patient's age to complete this topic Procedures Procedure Name Priority Date/Time Associated Diagnosis Comments US OB FOLLOW UP PER FETUS Routine 07/17/2024 8:38 AM SOLE POLISHER Encounter for anatomic survey from Last 3 Months Results * US OB FOLLOW UP PER FETUS (07/17/2024 8:38 AM SOLE POLISHER) Anatomical Region Laterality Modality Pelvis Ultrasound 07/17/2024 8:13 AM SOLE POLISHER Narrative 07/17/2024 8:41 AM SOLE POLISHER STL FOLLOW UP ----- Pat. Name: ARIELLA ANDERSON Study Date: 07/17/2024 8:13am Pat. NO: [id number] Referring MD: GRANT STODDARD MD Site: [place] [facility] [place]: Cyndi Pinon RDMS : 1990 Age: 34 ----- INDICATION ----- Maternal Care for Low Transverse Scar from Previous Delivery (Previous ) Screening Follow-Up CODING ----- Diagnoses Z3A.35: Weeks of gestation O34.211: Maternal care for low transverse scar from previous delivery Z36.3: Encounter for screening for malformations Z3A.35: Weeks of gestation Z36.2: Encounter for other screening follow-up Procedures [id number]: Ultrasound, uterus, real time with image documentation, [...] 5 lb 7 oz EFW by Hadlock ([id number]) Head / Face / Neck Biometry: Assistant Professor Nurse Education 5.2 mm Extremities / Bony Struc Biometry: [...] and date of were verified by the assembler watch train prior to the exam IMPRESSION ----- 1. [...] Kamini. Name:Carolyn ANDERSON Date:07/17/2024 8:13am Pat. NO: [id number] MD:GRANT STODDARD [facility]di iPnon RDMS :1990Age:34 ----- INDICATION ----- Maternal Care for Low Transverse Scar from Previous Delivery (Previous ) Screening Follow-Up CODING ----- Diagnoses Z3A.35: Weeks of gestation O34.211: Maternal care for low transverse scarfrom previous delivery Z36.3: Encounter for screening formalformations Z3A.35: Weeks of gestation Z36.2: Encounter for other screeningfollow-up Procedures [id number]: Ultrasound, uterus, real time withimage documentation, follow up, transabdominal approach per fetus HISTORY ----- OB History 2. Para 1 METHOD ----- Transabdominal ultrasound examination ----- Conti . Number of fetuses: 1 DATING ----- Cycle:regular cycle GA by prior [id number] w + 6 d BALDOMERO by prior [...] 5 lb 7 oz EFW by Hadlock ([id number]) Head / Face / Neck Biometry: Assistant Professor Nurse Education 5.2mm Extremities / Bony Struc Biometry: [place] [...] and date of were verified by the assembler watch train prior tothe exam IMPRESSION ----- 1. Single [...] Final Result from Last 3 Months Insurance [facility] [employer] PPO [id number]
--- OUTSIDE RECORDS SUMMARY | 2024-10-08 08:45 | XMS_ITS | Data Portability ---
Author Organization [facility], Main Office Address [address] [place] [address] Assessment Encounter Date Assessment Date Assessment LastModified by Organization Details LastModified Time 02/16/2023 02/16/2023 [employer]- INSTRUCTOR ADJUNCT PHARMACY TECHNICIAN Call office if worse, ER if life-threatening illness RTC in 1 year and p.r.n. She voiced understanding of plan and agrees She will e-mail me her recent lab results on the portal [email or web address] Not available 02/16/2023 12:34:42 Plan of Treatment Reminders Order Date Submit Date Provider Last Modified By Organization Details Last Modified Time Details Appointments None recorded. Lab None recorded. Referral general surgeon referral - discuss umb hernia repair- now vs after next 2022 023 MICAELA Mendoza MD, [address] [place] [address] [address], [place], [address], 3 13:31:06 Procedures None recorded. Surgeries None [...] Address Organization Details Recorded Time Umbilical hernia 229587703 Active 023 GALI Mota [address] [facility], [address], [place], [address] , [facility] 3 11:44:16 Cyst of thyroid 41552951 Active 023 GALI Mota [address] [facility], [address], [place], [address], [facility] 3 12:32:58 Diastasis recti 05600010 Active 023 Marizol Stern, [facility] [address], [address], [place], [address], [facility] [employer] [facility] 3 12:34:53 Problem Notes None recorded. Procedures Surgical History Date Name Laterality Status Provider Name and Address Organization Details Recorded Time 0 puncture and aspiration of cyst completed Not Available [facility] 07/19/2022 04:42:08 9 puncture and aspiration of cyst completed Not Available [facility] 07/19/2022 04:42:08 section completed MYNOR Samuels [facility] 02/16/2023 11:39:40 Imaging Results None recorded. Procedure [...] active Not Available Not Available Not Available Se- 19 Chewable 29 mg iron-1 mg tablet CHEW AND SWALLOW ONE TABLET DAILY 02/16 completed Not Available Not Available Not Available oseltamivir 6 mg/mL oral suspension Take 12.5 mL twice a day by oral route for 5 days. active Not Available Not Available No t Available norethindron e 1 mg-e. estradiol 20 mcg (24)-iron 75 mg (4) chew tablet [employer] 1 T PO QD 07/20 completed Not Available Not Available Not Available Vitals Date Recorded Body weight Body mass index (BMI) Body height Body temperature Heart rate Systolic blood pressure Diastolic blood pressure Provider Name and Address Organization Details Last Updated DateTime 3 44631.5 6 g 26.3 kg/m2 167.64 cm 98.7 [degF] 72 /min 116 mm[Hg] 80 mm[Hg] MYNOR Samuels [place] [facility] 3 11:41:31 Social History Question Answer Notes LastModified by Organizat ion Details LastModified Time Tobacco Smoking Status Never Smoker Not Available [facility] 07/19/2022 04:34:13 Do You Have An Advance Directive? No [id number] Information not available 07/19/2022 Is Blood Transfusion Acceptable In An Emergency? Yes [email or web address] Information not available 02/16/2023 What Is Your Level Of Caffeine Consumption? Moderate [id number] Information not available 07/19/2022 How Much Tobacco Do You Chew? None MIGRATION.99577 43213 Information not available 07/19/2022 In The 14 Days Before Symptom Onset, Have You Had Close Contact With A Laboratory-confir med COVID-19 While That Case Was Ill? No [id number] Information not available 07/19/2022 In The 14 Days Before Symptom Onset, Have You Had Close Contact With A Person Who Is Under Investigation For COVID-19 While That Person Was Ill? No MIGRATION.98823 14053 Information not available 07/19/2022 What Type Of Diet Are You Following? REGULAR [email or web address] Information not available 02/16/2023 Which Illicit Or Recreational Drugs Have You Used? None MIGRATION.26458 69531 Information not available 07/19/2022 What Is The Highest Grade Or Level Of School You Have Completed Or The Highest Degree You Have Received? [id number] Information not available 02/16/2023 Have There Been Any Changes To Your Family Or Social Situation? No [email or web address] Information no t available 02/16/2023 Are There Any Guns Present In Your Home? Yes MIGRATION.70294 33611 Information not available 07/19/2022 Do You Use Insect Repellent Routinely? No [email or web address] Information not available 02/16/2023 Where Do You Live? SingleLevelHouse Information not available 02/16/2023 Do You Have A Medical Power Of Carton Stenciler? No [email or web address] Information not available 02/16/2023 What Was The Date Of Your Most Recent Tobacco Screening? 02/16/2023 [email or web address] Information not available 02/16/2023 How Many Children Do You Have? 2 Information not available 02/16/2023 Do You Have Any Pets? Yes [email or web address] Information not available 02/16/2023 What Is Your Relationship Status? [email or web address] Information not available 02/16/2023 Do You Use Your Seat Belt Or Car Seat Routinely? Yes [email or web address] Information not available 02/16/2023 Do You Have Smoke And Carbon Monoxide Detectors In Your Home? Yes [email or web address] Information not available 02/16/2023 Are You Passively Exposed To Smoke? No [email or web address] Information no t available 02/16/2023 Are There Any Smokers In Your House? No [email or web address] Information not available 02/16/2023 How Much Tobacco Do You Smoke? No MIGRATION.73783 02993 Information not available 07/19/2022 Do You Use Sunscreen Routinely? Yes MIGRATION.89146 59862 Information not available 07/19/2022 How Many Years Have You Smoked Tobacco? 0 MIGRATION.25197 03795 Information not available 07/19/2022 Have You Recently Traveled Abroad? No Information not available 02/16/2023 Do You Have Any Dietary Restrictions? No [email or web address] Information not available 02/16/2023 Sex: Female Functional Status Question Answer Note LastModified by Organizat ion Details LastModified Time Do you use any illicit or recreational drugs? No [email or web address] Information not available 02/16/2023 Do you or have you ever used any other forms of tobacco or nicotine? No [email or web address] Information not available 02/16/2023 What is your level of alcohol consumption? Occasional MIGRATION.933126 2027 Information not available 07/19/2022 Are you currently employed? 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 Moderate [email or web address] Information not available 02/16/2023 Mental Status Question Answer Note LastModified by Organization D etails LastModified Time Do you feel stressed (tense, restless, nervous, or anxious, or unable to sleep at night)? [id number] [email or web address] Information not available 02/16/2023 Family History Relationship Description Onset Age of this Age Resolved Age Notes LastModified by Organization Details LastModified Time Mother Family history of breast cancer MIGRATION.081 [id number] Not available 07/19/2022 04:42:14 Maternal Grandmother Family history of breast cancer MIGRATION.024 [id number] Not available 07/19/2022 04:42:14 Paternal Grandmother Hypercholest erolemia MIGRATION.517 [id number] Not available 07/19/2022 04:42:14 Medical History Condition [...] Immunizations Vaccine Type Date Status Note Provider Nam e and Address Organization Details Recorded Time Influenza, split virus, quadrivalent, preservative 9 completed Not Available [facility] 07/19/2022 05:04:36 Past Encounters Encounter ID Performer Location Encounter Start Date Encounter Closed Date Diagnosis/Indication Diagnosis SNOMED-CT Code Diagnosis ICD10 Code Diagnosis Note [id number] Sosa shaikh MD [facility] [address] [facility], [facility] [address] [place] [address] 02/16/2023 11:29:46 02/16/2023 13:59:48 Umbilical hernia 977173841 K42.9 Get appt with surgeon to discuss- Dr. Martin also may want to have her diastasis repaired at the same time, will get her referred to a surgeon who also works with the plastic surgeon to see if this can all be done during the same surgery (Dr. Sánchez)E R precaution s Cyst of thyroid 82790620 E04.1 follows ENT- Dr. Salvador Kate will call to get reschedule d for her missed appt Diet education 77146928 Z71.3 recommend healthy, well balanced mealsfocus on [...] to incorporat e into diet Diastasis recti 47378296 M62.08 as above Health Concerns Section Related Observation LastModified by Organization Detai ls LastModified Time None Recorded Concern Status LastModified by Organization Details LastModified Time None Recorded Advance Directives Directive N: Payers Encounter Date Sequence Insurance Name Policy Number Policy Pryor Covered Member ID Pryor Member ID Guarantor Name 02/16/2023 1 [facility] [id number] Ariella Anderson [id number] Ariella Anderson Notes Date Note Type Note [...] on the portal. Marizol Stern, [facility] [address] [facility], [facility] [address], [place], [address], [place] [facility] [employer] 02/16/2023 12:35:13 OBGyn Episode No OBEpisode recorded.
--- OUTSIDE RECORDS SUMMARY | 2024-10-08 08:45 | XMS_ITS | Clinical Summary ---
Author Organization [place] [address] [place] Address [address] [place] [address] Care Team Providers Care Community Theater Actor Name Role Phone Unknown, Notinfile Primary Care [...] this topic Insurance [facility] H[facility]PP[facility] Address: [facility] [address] [place] [address] Care Teams Community Theater Actor Relationship Specialty Start Date End Date Unknown, Notinfile PCP - General 01/17/24
[2024-10-08 13:41] LABS: Free T4 Free Thyroxine 0.87 ng/dL (0.78-2.19)
== END 2024-10-08 07:58 | disposition home or self-care (01) ==
LOC: ANHGOSHLAB 07:59
PROVIDERS: Visit Provider Obstetrics & Gynecology
DX: E04.9 Nontoxic goiter, unspecified (principal)
CPT/HCPCS: 36415; 84439; 84443